=== PATIENT | male | born 1945 | race Caucasian/White ===

== ENCOUNTER 2016-12-02 20:06 | Inpatient (IN) | payer MEDICARE, MEDICAID ==
[~2016-12-02] VITALS: Ht 177.8 cm; Wt 70.6 kg
[~2016-12-02 20:06] MED LIST: ACET650S19 PO; ASCO500T2 PO; ASCO500T3 PO; ASPI-612 PO; ATOR20TA58 PO; BISA10SU2 RC; BISA5TAB4 PO; BUDE0.5A11 NEB; BUSP10TA PO; CARB200T4 PO; CHLO100T6 PO; CHOL10002 PO; CHOL10003 PO; CHOL200074 PO; DEXT1CAP PO; FLUT15.88 NS; FLUT16SP21 NS; HALO5TAB PO; IRON150C15 PO; LEVE500V7 IV; LEVO125T5 PO; LURA20TA PO; MAG355OR12 PO; MAGN2400 PO; METH29OI TP; MULT-557 PO; PANT40TA5 PO; POLY17PO5 PO; SENN-79 PO; SENN8.6T99 PO; SODI1TAB PO; TAMS0.4C2 PO; VALP250S PO; VALP250S18 PO; ZINC50TA33 PO; [UNRECOGNIZED DRUG - CODE] IV
[2016-12-02 21:17] LABS: BASO % 0 % (0-3); EOS # 0.2 x10^3/uL (0.0-0.7); EOS % 4 % (0-3); HEMATOCRIT 35.6 % (39.0-53.0); LYMPH # 0.9 x10^3/uL (1.0-4.8); LYMPH % 16 % (24-48); MEAN CORPUSCULAR HEMOGLOBIN 30 pg (25-35); MEAN CORPUSCULAR HGB CONC 34 g/dL (31-37); MEAN CORPUSCULAR VOLUME 89 fL (79-100); MONO # 0.9 x10^3/uL (0.0-1.1); MONO % 16 % (0-9); NEUT # 3.6 x10^3uL (1.8-7.7); NEUT % 63 % (31-73); PLATELET COUNT 265 x10^3/uL (140-400); RED BLOOD COUNT 4.02 x10^6/uL (4.30-5.70); WHITE BLOOD COUNT 5.7 x10^3/uL (4.0-11.0)
[2016-12-02 21:20] LABS: ALBUMIN/GLOBULIN RATIO 0.7 (1.0-1.7); CALCIUM 8.6 mg/dL (8.5-10.1); CREATININE 0.9 mg/dL (0.7-1.3); GFR 82.9; MAGNESIUM 1.8 mg/dL (1.8-2.4); POTASSIUM 3.3 mmol/L (3.5-5.1); TOTAL BILIRUBIN 0.1 mg/dL (0.2-1.0); TOTAL PROTEIN 7.2 g/dL (6.4-8.2)
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
[2016-12-02 22:35] LABS: BILIRUBIN,URINE NEG (NEG); CLARITY,URINE CLEAR; COLOR,URINE YELLOW; GLUCOSE,URINE NEG (NEG); NITRITE,URINE NEG (NEG); UROBILINOGEN,URINE 0.2 mg/dL (0.2 mg/dL)
[2016-12-02 22:36] LABS: BACTERIA,URINE 0 /HPF (0-FEW); SQUAMOUS EPITHELIAL CELL,UR FEW /LPF
--- NOTE | 2016-12-02 23:43 | EKG ---
[address] [address] Test Date: 2016-12-02 Test Time: 21:16:17 Pat Name: ORALIA JOVEL Department: Room: Gender: M [employer]: : 1945 Requested By: MAYITO GUZMAN Order Number: [id number] Reading MD: Measurements Intervals [place] Rate: 97 P: 53 IA: 154 QRS: 14 QRSD: 78 T: 32 QT: 358 QTc: 459 Interpretive Statements SINUS RHYTHM NO SPECIFIC ECG ABNORMALITIES RI6.01 No previous ECG available for comparison
[2016-12-03 00:44] VITALS: BP 120/76
[2016-12-03] MEDS ORDERED: MAGNESIUM HYDROXIDE 2,400 MG/30 ML ORAL.SUSP. PO PRN (00:45)
[2016-12-03] MEDS ORDERED: METHYL SALICYLATE/MENTHOL TOPICAL OINTMENT 29GM TUBE. TP PRN (00:45)
[2016-12-03] MEDS ORDERED: MAG HYDROX/AL HYDROX/SIMETH 30 ML ORAL.SUSP PO PRN (00:45)
[2016-12-03] MEDS ORDERED: ACETAMINOPHEN 325 MG TABLET PO PRN (00:45)
[2016-12-03] MEDS ORDERED: CHLO50TA6 PO (01:10)
[2016-12-03] MEDS ORDERED: OLAN10TA9 PO (01:10)
[2016-12-03] MEDS ORDERED: HALO2TAB PO ×2 (01:10)
[2016-12-03] MEDS ORDERED: CHLO100T6 PO (01:10)
[2016-12-03] MEDS ORDERED: HALOPERIDOL 2 MG TABLET PO PRN (01:15)
[2016-12-03 01:58] LABS: VAL ACID 59 mcg/mL (50-100)
[2016-12-03 06:27] VITALS: BP 112/72
[2016-12-03] MEDS ORDERED: ACETAMINOPHEN 650 MG/20.3 ML SOLUTION. PO PRN (07:00)
[2016-12-03] MEDS ORDERED: BISACODYL 10 MG SUPP.RECT RC PRN (07:00)
[2016-12-03] MEDS: LEVOTHYROXINE 125 MCG TABLET PO SCH (07:52)
[2016-12-03] MEDS: VALPROATE ACID 250 MG/5 ML ORAL SOLUTION PO SCH ×2 (08:40→19:45)
[2016-12-03] MEDS: busPIRone 10 MG TABLET. PO SCH ×2 (08:40→19:44)
[2016-12-03] MEDS: HALOPERIDOL 2 MG TABLET PO SCH ×3 (08:40→19:45)
[2016-12-03] MEDS: POLYETHYLENE GLYCOL 3350 17 GM PACKET. PO SCH (08:40)
[2016-12-03] MEDS: OLANZapine 10 MG TABLET PO SCH (08:40)
[2016-12-03] MEDS: FLUTICASONE 50MCG/NASAL SPRAY 16GM BOTTLE. NS SCH (08:59)
[2016-12-03] MEDS ORDERED: FLU VACC QS2017-18 (36MOS+)/PF 0.5 ML SYRINGE. VAX IM ONE (09:00)
[2016-12-03] MEDS ORDERED: CHLORPROMAZINE HCL 100 MG PO SCH (09:00)
[2016-12-03] MEDS: chlorproMAZINE HCL 25 MG TABLET PO SCH ×3 (09:07→19:45)
[2016-12-03 14:03] LABS: CARBAM 3.7 mcg/mL (4.0-12.0)
[2016-12-03 14:42] LABS: THYROID STIM HORMONE (TSH) 2.529 uIU/mL (0.358-3.740)
[2016-12-03 17:05] VITALS: BP 124/75
[2016-12-03 19:11] LABS: T3 TOTAL 77 ng/dL (71-180)
[2016-12-03] MEDS: MIRTAZAPINE 7.5 MG TABLET. PO SCH (19:45)
[2016-12-03] MEDS: TAMSULOSIN 0.4 MG CAP.ER.24H. PO SCH (19:45)
[2016-12-03] MEDS ORDERED: traZODone 50 MG TABLET. PO PRN (21:00)
[2016-12-03] MEDS ORDERED: carBAMazepine 200 MG TABLET PO SCH (21:00)
--- NOTE | 2016-12-03 21:01 | PDOC ---
Exam Raghav Demential Exam: Raghav Note: Please also refer to the separate dictated note~for this date of service dictated separately.~Patient seen individually. Discussed the patient with Nursing staff reviewed the chart.~Reviewed interim history and current functioning. Reviewed vital signs,~Labs/ Radiology~and current medications noted below. Continue current treatment with the changes noted in the dictated addendum note Assessment: Vital Signs: Vital Signs Date Time Temp Pulse Resp B/P (MAP) Pulse Ox O2 Delivery O2 Flow Rate FiO2 12/03/16 17:05 97.5 80 18 124/75 (91) 98 12/03/16 00:04 Room Air I&O Intake and Output 12/04/16 07:00 Intake Total 0 ml Balance 0 ml Intake Oral 0 ml Labs: Laboratory Tests Test 12/02/16 21:47 Urine Collection Type U cath Urine Color Yellow Urine Clarity Clear Urine pH 5.5 Urine Specific [place] >=1.030 Urine Protein 30 mg/dl (NEG-TRACE) Urine Glucose (UA) Neg mg/dL (NEG) Urine Ketones (Stick) Trace mg/dL (NEG) Urine Blood Neg (NEG) Urine Nitrite Neg (NEG) Urine Bilirubin Neg (NEG) Urine Urobilinogen Dipstick 0.2 mg/dL (0.2 mg/dL) Urine Leukocyte Esterase Neg (NEG) Urine RBC 1-2 /HPF (0-2) Urine WBC 1-4 /HPF (0-4) Urine Squamous Epithelial Cells Few /LPF Urine Bacteria 0 /HPF (0-FEW) Urine Mucus Mod /LPF Current Medications: Meds: Current Medications Acetaminophen (Tylenol) 650 mg PRN Q6HRS PRN PO PAIN / TEMP; Start 12/03/16 at 00:45 Multi-Ingredient Ointment (Analgesic [place]) 1 ailyn PRN QID PRN TP MUSCLE PAIN; Start 12/03/16 at 00:45 Al Hydroxide/Mg Hydroxide (Mylanta Plus Xs) 15 ml PRN AFTMEALHC PRN PO DYSPEPSIA; Start 12/03/16 at 00:45 Magnesium Hydroxide (Milk Of Magnesia) 2,400 mg PRN QHS PRN PO CONSTIPATION; Start 12/03/16 at 00:45 Buspirone HCl (Buspar) 10 mg BID PO Last administered on 12/03/16t 19:44; Start 12/03/16 at 09:00 Carbamazepine (TEGretol) 200 mg HS PO Last administered on 12/03/16 19:45; Start 12/03/16 at 21:00 Haloperidol (Haldol) 2 mg PRN Q4HRS PRN PO AGITATION; Start 12/03/16 at 01:15 Haloperidol (Haldol) 2 mg TID PO Last administered on 12/03/16 19:45; Start 12/03/16 at 09:00 Olanzapine (ZyPREXA) 10 mg DAILY PO Last administered on 12/03/16 08:40; Start 12/03/16 at 09:00 Chlorpromazine HCl (Thorazine) 150 mg TID PO Last administered on 12/03/16 19: 45; Start 12/03/16 at 09:00 Non-Formulary Medication 100 mg TID PO ; Start 12/03/16 at 09:00; Status UNV Valproic Acid (Depakene) 250 mg BID PO Last administered on 12/03/16 19:45; Start 12/03/16 at 09:00 Influenza Virus Vaccine Quadrival (Fluarix Quad [id number] Syringe) 0.5 ml ONCE ONCE VAX IM Last administered on 12/03/16 09:06; Start 12/03/16 at 09:00; Stop 12/03/16 at 09:02; Status DC Acetaminophen (Tylenol) 650 mg PRN Q6HRS PRN PO PAIN / TEMP; Start 12/03/16 at 07:00 Bisacodyl (Dulcolax Supp) 10 mg PRN DAILY PRN RC CONSTIPATION; Start 12/03/16 at 07:00 Fluticasone Propionate (Flonase) 1 spray DAILY NS Last administered on 08:59; Start 12/03/16 at 09:00 Levothyroxine Sodium (Synthroid) 125 mcg DAILY06 PO Last administered on 07:52; Start 12/03/16 at 07:30 Polyethylene Glycol (miraLAX) 17 gm DAILY PO Last administered on 12/03/16 08: 40; Start 12/03/16 at 09:00 Tamsulosin HCl (Flomax) 0.4 mg HS PO Last administered on 12/03/16 19:45; Start 12/03/16 at 21:00 Trazodone HCl (Desyrel) 50 mg PRN QHS PRN PO INSOMNIA; Start 12/03/16 at 21:00 Mirtazapine (Remeron) 7.5 mg QHS PO Last administered on 12/03/16t 19:45; Start 12/03/16 at 21:00 Active Scripts Active Reported Olanzapine 10 Mg Tablet 10 Mg PO DAILY Haloperidol 2 Mg Tablet 2 Mg PO PRN Q4HRS PRN Haloperidol 2 Mg Tablet 2 Mg PO TID Chlorpromazine Hcl 100 Mg Tablet 100 Mg PO TID Chlorpromazine Hcl 50 Mg Tablet 50 Mg PO TID Acetaminophen 650 Mg/20.3 Ml Solution 650 Mg PO Q6HRS PRN LAST DOSE GIVEN: DATE: TIME: NEXT DOSE DUE: DATE: TIME: Buspirone Hcl 10 Mg Tablet 10 Mg PO BID LAST DOSE GIVEN: DATE: TIME: NEXT DOSE DUE: DATE: TIME: Depakene (Valproate Sodium) 250 Mg/5 Ml Solution 2,500 Mg PO BID LAST DOSE GIVEN: DATE: TIME: NEXT DOSE DUE: DATE: TIME: Tamsulosin Hcl 0.4 Mg Cap.er.24h 0.4 Mg PO HS LAST DOSE GIVEN: DATE: TIME: NEXT DOSE DUE: DATE: TIME: Miralax (Polyethylene Glycol 3350) 17 Gm Powd.pack 17 Gm PO DAILY LAST DOSE GIVEN: DATE: TIME: NEXT DOSE DUE: DATE: TIME: Levothyroxine Sodium 125 Mcg Tablet 125 Mcg PO DAILYAC LAST DOSE GIVEN: DATE: TIME: NEXT DOSE DUE: DATE: TIME: Carbamazepine 200 Mg Tablet 200 Mg PO HS Bisacodyl 10 Mg Supp.rect 10 Mg RC PRN DAILY PRN Fluticasone Propionate Nasal [place] (Fluticasone Propionate) 16 Gm [place].susp 1 Spr NS DAILY Diagnosis: Problems: (1) Dementia with behavioral disturbance (2) Intellectual delay (3) Altered mental state (4) Anxiety disorder (5) Impulse control disorder (6) Dementia in Alzheimer's disease with delusions (7) Dementia in Alzheimer's disease with depression (8) Bipolar affective, mixed RAVINDRA CHANG MD Dec 03, 2016 21:01
[2016-12-04] MEDS ORDERED: ARIP5TAB13 PO (03:02)
[2016-12-04] MEDS ORDERED: ASPI-630 PO (03:03)
[2016-12-04] MEDS: LEVOTHYROXINE 125 MCG TABLET PO SCH (05:30)
[2016-12-04 06:35] VITALS: BP 116/78
[2016-12-04] MEDS: carBAMazepine 200 MG TABLET PO SCH ×2 (07:36→18:00)
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
[2016-12-04] MEDS: FLUTICASONE 50MCG/NASAL SPRAY 16GM BOTTLE. NS SCH (09:00)
[2016-12-04] MEDS: POLYETHYLENE GLYCOL 3350 17 GM PACKET. PO SCH (09:22)
[2016-12-04] MEDS: chlorproMAZINE HCL 25 MG TABLET PO SCH ×3 (09:22→19:50)
[2016-12-04] MEDS: HALOPERIDOL 2 MG TABLET PO SCH ×3 (09:22→19:45)
[2016-12-04] MEDS: busPIRone 10 MG TABLET. PO SCH ×2 (09:22→19:50)
[2016-12-04] MEDS: OLANZapine 10 MG TABLET PO SCH (09:22)
[2016-12-04] MEDS: VALPROATE ACID 250 MG/5 ML ORAL SOLUTION PO SCH ×2 (09:22→21:04)
[2016-12-04] MEDS: CHOLECALCIFEROL (VITAMIN D3) 50,000 UNIT CAPSULE PO SCH (09:23)
--- NOTE | 2016-12-04 09:44 | HP ---
ADMIT DATE: 12/03/2016 PSYCHIATRIC ADMISSION HISTORY AND EVALUATION This late entry 12/03 covers elements not covered in my initial note of 12/03. I met with the patient individually evening of 12/03 for this evaluation, discussed with nursing staff 2 or 3 times prior to this evaluation to gather background historical information and symptoms prompting admission controlled with residential staff. IDENTIFYING DATA: The patient is a 71-year-old male referred to us from [facility] in [place], [place] by Dr. Dylan Villegas, his primary care physician on account of worsening mood swings, yelling out, tripping people off, grabbing people, threw a pop bottle, increased anxiety. Behaviors deemed dangerous to himself and other residents at facility. He had failed outpatient psychiatric interventions, referred for inpatient psychiatric stabilization with a prior diagnosis of dementia with behavioral disturbance, mental retardation, and bipolar disorder. CHIEF COMPLAINT: "No." The patient is not very verbal, yells out at times, oriented to himself only. HISTORY OF PRESENT ILLNESS: The patient has a history of mental retardation in association with a later onset of dementia, Alzheimer's type with the delusion, depression, behavioral disturbance. He has had increasing mood swings, yelling out, agitation, appeared paranoid, psychotic. He has had significant insomnia, some appetite changes. No active suicidal or homicidal ideation, but behaviors have been dangerous, unmanageable at the facility resulting in this referral. PAST PSYCHIATRIC HISTORY: As above. MEDICAL HISTORY: Positive for mental retardation, hypothyroidism, hyperlipidemia, BPH, GERD, COPD. CODE STATUS: DNR. ALLERGIES: None. He ambulates in wheelchair. The patient transfers himself to bed; however, he does not lock his wheelchair, must have chair alarm. CURRENT PSYCHOTROPICS: Haldol 2 mg 3 times a day and 2 mg q. 4 hours p.r.n., BuSpar 10 mg b.i.d., Zyprexa 10 mg daily, Latuda 20 mg daily, valproic acid 250 mg b.i.d., Tegretol 200 mg at bedtime, chlorpromazine 150 mg 3 times a day. FAMILY HISTORY: Noncontributory. SOCIAL HISTORY: No alcohol, drug abuse, physical, sexual or elder abuse. He is not known to be a perpetrator. MENTAL STATUS EXAMINATION: The patient was seen individually in his room the evening of 12/03. He is oriented to himself, irritable, quite labile. Insight, judgment, recent and remote memory, attention, concentration, fund of knowledge poor, consistent with his diagnosis. Attention span short. Language function intact. Mood and affect quite labile. Intellectual function consistent with his intellectual disability. REVIEW OF SYSTEMS: Ambulation impaired. No CV, , pulmonary, eye, ENT system symptoms on review. Reliability poor. IMPRESSION: Bipolar 1 disorder, mixed with psychotic features, intellectual disability moderate, major neurocognitive disorder, Alzheimer with delusion, depression, behavioral disturbance; anxiety disorder unspecified; impulse control disorder unspecified. Rest as above. PLAN: Admit to the Geropsychiatry Unit at [facility]. I will see the patient daily individually. Request medical followup with Dr. Pacheco/Dr. Velazquez. Start trazodone 50 mg at bedtime p.r.n., june repeat x 1 for insomnia, Remeron 7.5 mg p.o. at bedtime. Valproic acid level is 59, therapeutic. Continue the Depakote liquid 250 mg b.i.d., Tegretol level is 3.7, on Tegretol 200 mg at bedtime, we will increase it to 200 mg b.i.d. Check CBC, CMP and Tegretol level in 3 days. We will make further adjustments in psychotropics as clinically indicated. MAN Dominique CHANG MD DR: EDUARDA/camelia JOB#: [id number] / [id number]
[2016-12-04 16:22] VITALS: BP 125/80
[2016-12-04] MEDS: MIRTAZAPINE 7.5 MG TABLET. PO SCH (19:45)
[2016-12-04] MEDS: TAMSULOSIN 0.4 MG CAP.ER.24H. PO SCH (19:45)
[2016-12-04] MEDS: ATORVASTATIN CALCIUM 20 MG TABLET PO SCH (19:50)
[2016-12-04] MEDS ORDERED: VALPROIC ACID 250 MG CAPSULE. PO SCH (21:00)
--- NOTE | 2016-12-04 21:04 | PDOC ---
Exam Raghav Demential Exam: Raghav Note: Please also refer to the separate dictated note~for this date of service dictated separately.~Patient seen individually. Discussed the patient with Nursing staff reviewed the chart.~Reviewed interim history and current functioning. Reviewed vital signs,~Labs/ Radiology~and current medications noted below. Continue current treatment with the changes noted in the dictated addendum note Assessment: Vital Signs: Vital Signs Date Time Temp Pulse Resp B/P (MAP) Pulse Ox O2 Delivery O2 Flow Rate FiO2 12/04/16 16:22 97.7 97 18 125/80 (95) 93 12/04/16 06:35 Room Air I&O Intake and Output 12/05/16 07:00 Intake Total 0 ml Balance 0 ml Intake Oral 0 ml Current Medications: Meds: Current Medications Acetaminophen (Tylenol) 650 mg PRN Q6HRS PRN PO PAIN / TEMP; Start 12/03/16 at 00:45 Multi-Ingredient Ointment (Analgesic [place]) 1 ailyn PRN QID PRN TP MUSCLE PAIN; Start 12/03/16 at 00:45 Al Hydroxide/Mg Hydroxide (Mylanta Plus Xs) 15 ml PRN AFTMEALHC PRN PO DYSPEPSIA; Start 12/03/16 at 00:45 Magnesium Hydroxide (Milk Of Magnesia) 2,400 mg PRN QHS PRN PO CONSTIPATION; Start 12/03/16 at 00:45 Buspirone HCl (Buspar) 10 mg BID PO Last administered on 12/04/16 19:50; Start 12/03/16 at 09:00 Carbamazepine (TEGretol) 200 mg HS PO Last administered on 12/03/16 19:45; Start 12/03/16 at 21:00; Stop 12/04/16 at 06:05; Status DC Haloperidol (Haldol) 2 mg PRN Q4HRS PRN PO AGITATION; Start 12/03/16 at 01:15 Haloperidol (Haldol) 2 mg TID PO Last administered on 12/04/16 19:45; Start 12/03/16 at 09:00 Olanzapine (ZyPREXA) 10 mg DAILY PO Last administered on 12/04/16 09:22; Start 12/03/16 at 09:00 Chlorpromazine HCl (Thorazine) 150 mg TID PO Last administered on 12/04/16 19: 50; Start 12/03/16 at 09:00 Non-Formulary Medication 100 mg TID PO ; Start 12/03/16 at 09:00; Status UNV Valproic Acid (Depakene) 250 mg BID PO Last administered on 12/04/16 09:22; Start 12/03/16 at 09:00; Stop 12/04/16 at 11:16; Status DC Influenza Virus Vaccine Quadrival (Fluarix Quad [id number] Syringe) 0.5 ml ONCE ONCE VAX IM Last administered on 12/03/16 09:06; Start 12/03/16 at 09:00; Stop 12/03/16 at 09:02; Status DC Acetaminophen (Tylenol) 650 mg PRN Q6HRS PRN PO PAIN / TEMP; Start 12/03/16 at 07:00 Bisacodyl (Dulcolax Supp) 10 mg PRN DAILY PRN RC CONSTIPATION; Start 12/03/16 at 07:00 Fluticasone Propionate (Flonase) 1 spray DAILY NS Last administered on 08:59; Start 12/03/16 at 09:00 Levothyroxine Sodium (Synthroid) 125 mcg DAILY06 PO Last administered on 05:30; Start 12/03/16 at 07:30 Polyethylene Glycol (miraLAX) 17 gm DAILY PO Last administered on 12/04/16 09: 22; Start 12/03/16 at 09:00 Tamsulosin HCl (Flomax) 0.4 mg HS PO Last administered on 12/04/16 19:45; Start 12/03/16 at 21:00 Trazodone HCl (Desyrel) 50 mg PRN QHS PRN PO INSOMNIA; Start 12/03/16 at 21:00 Mirtazapine (Remeron) 7.5 mg QHS PO Last administered on 12/04/16 19:45; Start 12/03/16 at 21:00 Carbamazepine (TEGretol) 200 mg BID76 PO Last administered on 12/04/16 07:36; Start 12/04/16 at 07:00 Vitamin D (Vitamin D3) 50,000 unit WEEKLY PO Last administered on 12/04/16 09: 23; Start 12/04/16 at 09:00 Atorvastatin Calcium (Lipitor) 20 mg QHS PO Last administered on 12/04/16t 19: 50; Start 12/04/16 at 21:00 Valproic Acid (Depakene) 2,500 mg BID PO ; Start 12/04/16 at 21:00; Stop at 21:00; Status DC Valproic Acid (Depakene) 2,500 mg BID PO ; Start 12/04/16 at 21:00 Active Scripts Active Reported Aspirin 81 Mg Tab.chew 81 Mg PO DAILY Abilify (Aripiprazole) 5 Mg Tablet 5 Mg PO DAILY Olanzapine 10 Mg Tablet 10 Mg PO DAILY Haloperidol 2 Mg Tablet 2 Mg PO PRN Q4HRS PRN Haloperidol 2 Mg Tablet 2 Mg PO TID Chlorpromazine Hcl 100 Mg Tablet 100 Mg PO TID Chlorpromazine Hcl 50 Mg Tablet 50 Mg PO TID Acetaminophen 650 Mg/20.3 Ml Solution 650 Mg PO Q6HRS PRN LAST DOSE GIVEN: DATE: TIME: NEXT DOSE DUE: DATE: TIME: Buspirone Hcl 10 Mg Tablet 10 Mg PO BID LAST DOSE GIVEN: DATE: TIME: NEXT DOSE DUE: DATE: TIME: Depakene (Valproate Sodium) 250 Mg/5 Ml Solution 2,500 Mg PO BID LAST DOSE GIVEN: DATE: TIME: NEXT DOSE DUE: DATE: TIME: Tamsulosin Hcl 0.4 Mg Cap.er.24h 0.4 Mg PO HS LAST DOSE GIVEN: DATE: TIME: NEXT DOSE DUE: DATE: TIME: Miralax (Polyethylene Glycol 3350) 17 Gm Powd.pack 17 Gm PO DAILY LAST DOSE GIVEN: DATE: TIME: NEXT DOSE DUE: DATE: TIME: Levothyroxine Sodium 125 Mcg Tablet 125 Mcg PO DAILYAC LAST DOSE GIVEN: DATE: TIME: NEXT DOSE DUE: DATE: TIME: Carbamazepine 200 Mg Tablet 200 Mg PO HS Bisacodyl 10 Mg Supp.rect 10 Mg RC PRN DAILY PRN Fluticasone Propionate Nasal [place] (Fluticasone Propionate) 16 Gm [place].susp 1 Spr NS DAILY Diagnosis: Problems: (1) Altered mental state (2) Intellectual delay (3) Dementia with behavioral disturbance (4) Anxiety disorder (5) Impulse control disorder (6) Dementia in Alzheimer's disease with delusions (7) Dementia in Alzheimer's disease with depression (8) Bipolar affective, mixed RAVINDRA CHANG MD Dec 04, 2016 21:04
[2016-12-05] MEDS: LEVOTHYROXINE 125 MCG TABLET PO SCH (05:44)
[2016-12-05] MEDS: carBAMazepine 200 MG TABLET PO SCH ×2 (05:45→17:21)
[2016-12-05 06:08] VITALS: BP 119/74
[2016-12-05] MEDS: FLUTICASONE 50MCG/NASAL SPRAY 16GM BOTTLE. NS SCH (08:22)
[2016-12-05] MEDS: chlorproMAZINE HCL 25 MG TABLET PO SCH ×3 (08:23→19:21)
[2016-12-05] MEDS: busPIRone 10 MG TABLET. PO SCH (08:23)
[2016-12-05] MEDS: HALOPERIDOL 2 MG TABLET PO SCH ×3 (08:24→19:20)
[2016-12-05] MEDS: OLANZapine 10 MG TABLET PO SCH (08:24)
[2016-12-05] MEDS: POLYETHYLENE GLYCOL 3350 17 GM PACKET. PO SCH (08:25)
[2016-12-05] MEDS: VALPROATE ACID 250 MG/5 ML ORAL SOLUTION PO SCH ×2 (08:25→19:21)
[2016-12-05 15:51] VITALS: BP 114/74
[2016-12-05] MEDS: TAMSULOSIN 0.4 MG CAP.ER.24H. PO SCH (19:20)
[2016-12-05] MEDS: MIRTAZAPINE 7.5 MG TABLET. PO SCH (19:20)
[2016-12-05] MEDS: ATORVASTATIN CALCIUM 20 MG TABLET PO SCH (19:20)
[2016-12-05] MEDS: busPIRone 15 MG TABLET. PO SCH (19:30)
--- NOTE | 2016-12-05 21:13 | PDOC ---
Exam Raghav Demential Exam: Raghav Note: Please also refer to the separate dictated note~for this date of service dictated separately.~Patient seen individually. Discussed the patient with Nursing staff reviewed the chart.~Reviewed interim history and current functioning. Reviewed vital signs,~Labs/ Radiology~and current medications noted below. Continue current treatment with the changes noted in the dictated addendum note Assessment: Vital Signs: Vital Signs Date Time Temp Pulse Resp B/P (MAP) Pulse Ox O2 Delivery O2 Flow Rate FiO2 12/05/16 15:51 97.3 93 19 114/74 (87) 95 12/04/16 06:35 Room Air I&O Intake and Output 12/06/16 07:00 Intake Total 0 ml Balance 0 ml Intake Oral 0 ml Current Medications: Meds: Current Medications Acetaminophen (Tylenol) 650 mg PRN Q6HRS PRN PO PAIN / TEMP; Start 12/03/16 at 00:45 Multi-Ingredient Ointment (Analgesic [place]) 1 ailyn PRN QID PRN TP MUSCLE PAIN; Start 12/03/16 at 00:45 Al Hydroxide/Mg Hydroxide (Mylanta Plus Xs) 15 ml PRN AFTMEALHC PRN PO DYSPEPSIA; Start 12/03/16 at 00:45 Magnesium Hydroxide (Milk Of Magnesia) 2,400 mg PRN QHS PRN PO CONSTIPATION; Start 12/03/16 at 00:45 Buspirone HCl (Buspar) 10 mg BID PO Last administered on 12/05/16 08:23; Start 12/03/16 at 09:00; Stop 12/05/16 at 18:53; Status DC Carbamazepine (TEGretol) 200 mg HS PO Last administered on 12/03/16 19:45; Start 12/03/16 at 21:00; Stop 12/04/16 at 06:05; Status DC Haloperidol (Haldol) 2 mg PRN Q4HRS PRN PO AGITATION; Start 12/03/16 at 01:15 Haloperidol (Haldol) 2 mg TID PO Last administered on 12/05/16 19:20; Start 12/03/16 at 09:00 Olanzapine (ZyPREXA) 10 mg DAILY PO Last administered on 12/05/16 08:24; Start 12/03/16 at 09:00 Chlorpromazine HCl (Thorazine) 150 mg TID PO Last administered on 12/05/16 19: 21; Start 12/03/16 at 09:00 Non-Formulary Medication 100 mg TID PO ; Start 12/03/16 at 09:00; Status UNV Valproic Acid (Depakene) 250 mg BID PO Last administered on 12/04/16 09:22; Start 12/03/16 at 09:00; Stop 12/04/16 at 11:16; Status DC Influenza Virus Vaccine Quadrival (Fluarix Quad 7061-5281 Syringe) 0.5 ml ONCE ONCE VAX IM Last administered on 12/03/16 09:06; Start 12/03/16 at 09:00; Stop 12/03/16 at 09:02; Status DC Acetaminophen (Tylenol) 650 mg PRN Q6HRS PRN PO PAIN / TEMP; Start 12/03/16 at 07:00 Bisacodyl (Dulcolax Supp) 10 mg PRN DAILY PRN RC CONSTIPATION; Start 12/03/16 at 07:00 Fluticasone Propionate (Flonase) 1 spray DAILY NS Last administered on 08:59; Start 12/03/16 at 09:00 Levothyroxine Sodium (Synthroid) 125 mcg DAILY06 PO Last administered on 05:44; Start 12/03/16 at 07:30 Polyethylene Glycol (miraLAX) 17 gm DAILY PO Last administered on 12/04/16 09: 22; Start 12/03/16 at 09:00 Tamsulosin HCl (Flomax) 0.4 mg HS PO Last administered on 12/05/16 19:20; Start 12/03/16 at 21:00 Trazodone HCl (Desyrel) 50 mg PRN QHS PRN PO INSOMNIA; Start 12/03/16 at 21:00 Mirtazapine (Remeron) 7.5 mg QHS PO Last administered on 12/05/16 19:20; Start 12/03/16 at 21:00 Carbamazepine (TEGretol) 200 mg BID76 PO Last administered on 12/05/16 17:21; Start 12/04/16 at 07:00 Vitamin D (Vitamin D3) 50,000 unit WEEKLY PO Last administered on 10/5/17at 09: 23; Start 12/04/16 at 09:00 Atorvastatin Calcium (Lipitor) 20 mg QHS PO Last administered on 12/05/16 19: 20; Start 12/04/16 at 21:00 Valproic Acid (Depakene) 2,500 mg BID PO ; Start 12/04/16 at 21:00; Stop at 21:00; Status DC Valproic Acid (Depakene) 2,500 mg BID PO Last administered on 12/05/16 19:21; Start 12/04/16 at 21:00 Buspirone HCl (Buspar) 15 mg BID PO Last administered on 12/05/16 19:30; Start 12/05/16 at 21:00 Active Scripts Active Reported Aspirin 81 Mg Tab.chew 81 Mg PO DAILY Abilify (Aripiprazole) 5 Mg Tablet 5 Mg PO DAILY Olanzapine 10 Mg Tablet 10 Mg PO DAILY Haloperidol 2 Mg Tablet 2 Mg PO PRN Q4HRS PRN Haloperidol 2 Mg Tablet 2 Mg PO TID Chlorpromazine Hcl 100 Mg Tablet 100 Mg PO TID Chlorpromazine Hcl 50 Mg Tablet 50 Mg PO TID Acetaminophen 650 Mg/20.3 Ml Solution 650 Mg PO Q6HRS PRN LAST DOSE GIVEN: DATE: TIME: NEXT DOSE DUE: DATE: TIME: Buspirone Hcl 10 Mg Tablet 10 Mg PO BID LAST DOSE GIVEN: DATE: TIME: NEXT DOSE DUE: DATE: TIME: Depakene (Valproate Sodium) 250 Mg/5 Ml Solution 2,500 Mg PO BID LAST DOSE GIVEN: DATE: TIME: NEXT DOSE DUE: DATE: TIME: Tamsulosin Hcl 0.4 Mg Cap.er.24h 0.4 Mg PO HS LAST DOSE GIVEN: DATE: TIME: NEXT DOSE DUE: DATE: TIME: Miralax (Polyethylene Glycol 3350) 17 Gm Powd.pack 17 Gm PO DAILY LAST DOSE GIVEN: DATE: TIME: NEXT DOSE DUE: DATE: TIME: Levothyroxine Sodium 125 Mcg Tablet 125 Mcg PO DAILYAC LAST DOSE GIVEN: DATE: TIME: NEXT DOSE DUE: DATE: TIME: Carbamazepine 200 Mg Tablet 200 Mg PO HS Bisacodyl 10 Mg Supp.rect 10 Mg RC PRN DAILY PRN Fluticasone Propionate Nasal [place] (Fluticasone Propionate) 16 Gm [place].susp 1 Spr NS DAILY Diagnosis: Problems: (1) Altered mental state (2) Intellectual delay (3) Dementia with behavioral disturbance (4) Anxiety disorder (5) Impulse control disorder (6) Dementia in Alzheimer's disease with delusions (7) Dementia in Alzheimer's disease with depression (8) Bipolar affective, mixed RAVINDRA CHANG MD Dec 05, 2016 21:13
--- NOTE | 2016-12-05 23:49 | PN ---
DATE: 12/04/2016 This late entry 12/04/2016 covers elements not covered in my initial note of 12/04/2016. I met with the patient individually evening of 12/04/2016 at the treatment team meeting morning of 12/04/2016. Discussed the patient's history, progress, diagnoses, discharge, aftercare plans. He was quite agitated previous day, had swiped his plate off the table insistent on wanting Mountain Dew and candy bars. I had 2 or 3 telephone calls from nursing staff to clarify his admission dosage of Depakote, which in fact is 2500 mg twice a day in a liquid and that is the dosage he was discharged on the last time he was with us. REVIEW OF SYSTEMS: Ambulation impaired, in a wheelchair, transfers himself to bed, does not lock the wheelchair, must have chair alarm. No CV, , pulmonary, eye, ENT system symptoms on review. Diet is pureed. MENTAL STATUS EXAM: Oriented to himself. Insight, judgment, recent and remote memory, attention, concentration, fund of knowledge poor consistent with his diagnosis mentioned in my initial note. PLAN: Continue current psychotropics. Valproic acid is 2500 mg b.i.d. Maintain the rest of psychotropics unchanged. Follow labs level. Tegretol level is 3.7. Reviewed drug interactions, risk/benefit ratio favors no further change. MAN Dominique CHANG MD DR: EDUARDA/camelia JOB#: [id number] / [id number]
[2016-12-06] MEDS: carBAMazepine 200 MG TABLET PO SCH ×2 (05:18→18:00)
[2016-12-06] MEDS: LEVOTHYROXINE 125 MCG TABLET PO SCH (05:18)
[2016-12-06 06:07] VITALS: BP 115/71
[2016-12-06] MEDS: VALPROATE ACID 250 MG/5 ML ORAL SOLUTION PO SCH ×4 (08:03→22:24)
[2016-12-06] MEDS: OLANZapine 10 MG TABLET PO SCH ×2 (08:03→09:00)
[2016-12-06] MEDS: busPIRone 15 MG TABLET. PO SCH ×4 (08:04→22:24)
[2016-12-06] MEDS: HALOPERIDOL 2 MG TABLET PO SCH ×2 (08:04→09:00)
[2016-12-06] MEDS: chlorproMAZINE HCL 25 MG TABLET PO SCH ×5 (08:05→22:27)
[2016-12-06] MEDS: POLYETHYLENE GLYCOL 3350 17 GM PACKET. PO SCH ×2 (08:05→09:00)
[2016-12-06] MEDS: FLUTICASONE 50MCG/NASAL SPRAY 16GM BOTTLE. NS SCH (09:00)
[2016-12-06 09:39] LABS: BASO % 1 % (0-3); EOS # 0.1 x10^3/uL (0.0-0.7); EOS % 4 % (0-3); HEMATOCRIT 35.6 % (39.0-53.0); HEMOGLOBIN 11.7 g/dL (13.0-17.5); LYMPH # 0.8 x10^3/uL (1.0-4.8); LYMPH % 24 % (24-48); MEAN CORPUSCULAR HEMOGLOBIN 30 pg (25-35); MEAN CORPUSCULAR HGB CONC 33 g/dL (31-37); MEAN CORPUSCULAR VOLUME 90 fL (79-100); MONO # 0.5 x10^3/uL (0.0-1.1); MONO % 14 % (0-9); NEUT # 1.9 x10^3uL (1.8-7.7); NEUT % 57 % (31-73); PLATELET COUNT 254 x10^3/uL (140-400); RED BLOOD COUNT 3.96 x10^6/uL (4.30-5.70); RED CELL DISTRIBUTION WIDTH 18.2 % (11.5-14.5); WHITE BLOOD COUNT 3.3 x10^3/uL (4.0-11.0)
[2016-12-06 09:48] LABS: ALBUMIN 3.1 g/dL (3.4-5.0); ALBUMIN/GLOBULIN RATIO 0.7 (1.0-1.7); ALK PHOS 51 U/L (46-116); ALT (SGPT) 12 U/L (16-63); ANION GAP 6 (6-14); AST (SGOT) 12 U/L (15-37); BLOOD UREA NITROGEN 7 mg/dL (8-26); BUN/CREATININE RATIO 8 (6-20); CALCIUM 8.8 mg/dL (8.5-10.1); CARBON DIOXIDE 34 mmol/L (21-32); CHLORIDE 108 mmol/L (98-107); CREATININE 0.9 mg/dL (0.7-1.3); GFR 82.9; GLUCOSE 113 mg/dL (70-99); POTASSIUM 3.6 mmol/L (3.5-5.1); SODIUM 148 mmol/L (136-145); TOTAL BILIRUBIN 0.2 mg/dL (0.2-1.0); TOTAL PROTEIN 7.5 g/dL (6.4-8.2)
[2016-12-06] MEDS ORDERED: DIVALPROEX 125 MG CAP.SPRINK PO ONE (10:00)
[2016-12-06 10:23] LABS: VAL ACID 125 mcg/mL (50-100)
[2016-12-06] MEDS: HALOPERIDOL LACT 5 MG/ML VIAL. IM SCH (12:37)
[2016-12-06] MEDS: LORazepam 2 MG/ML VIAL IM SCH (12:38)
--- NOTE | 2016-12-06 14:41 | PN ---
DATE: 12/05/2016 PSYCHIATRIC PROGRESS NOTE This late entry 12/05/2016 covers elements, not covered in my initial note of 12/05/2016. SUBJECTIVE: I met with the patient evening of 12/05/2016. The patient has had a very difficult day. He has been yelling, cursing, agitated, throwing things, aggressive, refusing his medications, swipes his meal trays off the table, acting like a kid according to nursing staff. Does not appear clearly psychotic, but very immature. REVIEW OF SYSTEMS: Ambulation impaired. No CV, , pulmonary, eye, ENT system symptoms on review. Reliability poor. MENTAL STATUS EXAM: Oriented to himself. Insight, judgment, recent and remote memory, attention, concentration, fund of knowledge poor, consistent with his diagnosis mentioned in my initial note. PLAN: Increase BuSpar from 10 mg twice a day to 15 mg twice a day. Check labs level on the Tegretol, 12/07/2016. Continue Depakote liquid ____ mg b.i.d. Reviewed drug interactions. Risk/benefit ratio favors no further change. Continue chlorpromazine, Remeron, Haldol 2 mg t.i.d., Zyprexa 10 mg daily. MAN Dominique CHANG MD DR: EDUARDA/camelia JOB#: [id number] / [id number]
[2016-12-06 15:37] LABS: CARBAM 6.7 mcg/mL (4.0-12.0)
[2016-12-06 16:14] VITALS: BP 115/79
[2016-12-06] MEDS: ATORVASTATIN CALCIUM 20 MG TABLET PO SCH ×2 (21:00→22:25)
[2016-12-06] MEDS: MIRTAZAPINE 7.5 MG TABLET. PO SCH ×2 (21:00→22:24)
[2016-12-06] MEDS: TAMSULOSIN 0.4 MG CAP.ER.24H. PO SCH ×2 (21:00→22:25)
--- NOTE | 2016-12-06 22:57 | PDOC ---
Exam Raghav Demential Exam: Raghav Note: Please also refer to the separate dictated note~for this date of service dictated separately.~Patient seen individually. Discussed the patient with Nursing staff reviewed the chart.~Reviewed interim history and current functioning. Reviewed vital signs,~Labs/ Radiology~and current medications noted below. Continue current treatment with the changes noted in the dictated addendum note Assessment: Vital Signs: Vital Signs Date Time Temp Pulse Resp B/P (MAP) Pulse Ox O2 Delivery O2 Flow Rate FiO2 12/06/16 16:14 97.7 96 18 115/79 (91) 94 12/06/16 06:07 Room Air I&O Intake and Output 12/07/16 07:00 Intake Total 240 ml Balance 240 ml Intake Oral 240 ml Labs: Laboratory Tests Test 12/06/16 09:22 White Blood Count 3.3 x10^3/uL (4.0-11.0) L Red Blood Count 3.96 x10^6/uL (4.30-5.70) L Hemoglobin 11.7 g/dL (13.0-17.5) L Hematocrit 35.6 % (39.0-53.0) L Mean Corpuscular Volume 90 fL (79-100) Mean Corpuscular Hemoglobin 30 pg (25-35) Mean Corpuscular Hemoglobin Concent 33 g/dL (31-37) Red Cell Distribution Width 18.2 % (11.5-14.5) H Platelet Count 254 x10^3/uL (140-400) Neutrophils (%) (Auto) 57 % (31-73) Lymphocytes (%) (Auto) 24 % (24-48) Monocytes (%) (Auto) 14 % (0-9) H Eosinophils (%) (Auto) 4 % (0-3) H Basophils (%) (Auto) 1 % (0-3) Neutrophils # (Auto) 1.9 x10^3uL (1.8-7.7) Lymphocytes # (Auto) 0.8 x10^3/uL (1.0-4.8) L Monocytes # (Auto) 0.5 x10^3/uL (0.0-1.1) Eosinophils # (Auto) 0.1 x10^3/uL (0.0-0.7) Basophils # (Auto) 0.0 x10^3/uL (0.0-0.2) Sodium Level 148 mmol/L (136-145) H Potassium Level 3.6 mmol/L (3.5-5.1) Chloride Level 108 mmol/L (98-107) H Carbon Dioxide Level 34 mmol/L (21-32) H Anion Gap 6 (6-14) Blood Urea Nitrogen 7 mg/dL (8-26) L Creatinine 0.9 mg/dL (0.7-1.3) Estimated GFR (Cockcroft-Gault) 82.9 BUN/Creatinine Ratio 8 (6-20) Glucose Level 113 mg/dL (70-99) H Calcium Level 8.8 mg/dL (8.5-10.1) Total Bilirubin 0.2 mg/dL (0.2-1.0) Aspartate Amino Transferase (AST) 12 U/L (15-37) L Alanine Aminotransferase (ALT) 12 U/L (16-63) L Alkaline Phosphatase 51 U/L (46-116) Total Protein 7.5 g/dL (6.4-8.2) Albumin 3.1 g/dL (3.4-5.0) L Albumin/Globulin Ratio 0.7 (1.0-1.7) L Valproic Acid Level 125 mcg/mL (50-100) H Valproic Acid Last Dose Date 12/05/2016 Valproic Acid Last Dose Time 2100 Carbamazepine (Tegretol) Level 6.7 mcg/mL (4.0-12.0) Carbamazepine Last Dose Date 12/05/16 Carbamazepine Last Dose Time 2100 Current Medications: Meds: Current Medications Acetaminophen (Tylenol) 650 mg PRN Q6HRS PRN PO PAIN / TEMP; Start 12/03/16 at 00:45 Multi-Ingredient Ointment (Analgesic [place]) 1 ailyn PRN QID PRN TP MUSCLE PAIN; Start 12/03/16 at 00:45 Al Hydroxide/Mg Hydroxide (Mylanta Plus Xs) 15 ml PRN AFTMEALHC PRN PO DYSPEPSIA; Start 12/03/16 at 00:45 Magnesium Hydroxide (Milk Of Magnesia) 2,400 mg PRN QHS PRN PO CONSTIPATION; Start 12/03/16 at 00:45 Buspirone HCl (Buspar) 10 mg BID PO Last administered on 12/05/16t 08:23; Start 12/03/16 at 09:00; Stop 12/05/16 at 18:53; Status DC Carbamazepine (TEGretol) 200 mg HS PO Last administered on 12/03/16 19:45; Start 12/03/16 at 21:00; Stop 12/04/16 at 06:05; Status DC Haloperidol (Haldol) 2 mg PRN Q4HRS PRN PO AGITATION; Start 12/03/16 at 01:15 Haloperidol (Haldol) 2 mg TID PO Last administered on 12/05/16 19:20; Start 12/03/16 at 09:00; Status Future Hold Olanzapine (ZyPREXA) 10 mg DAILY PO Last administered on 12/05/16 08:24; Start 12/03/16 at 09:00 Chlorpromazine HCl (Thorazine) 150 mg TID PO Last administered on 12/05/16 19: 21; Start 12/03/16 at 09:00 Non-Formulary Medication 100 mg TID PO ; Start 12/03/16 at 09:00; Status UNV Valproic Acid (Depakene) 250 mg BID PO Last administered on 12/04/16 09:22; Start 12/03/16 at 09:00; Stop 12/04/16 at 11:16; Status DC Influenza Virus Vaccine Quadrival (Fluarix Quad [id number] Syringe) 0.5 ml ONCE ONCE VAX IM Last administered on 12/03/16 09:06; Start 12/03/16 at 09:00; Stop 12/03/16 at 09:02; Status DC Acetaminophen (Tylenol) 650 mg PRN Q6HRS PRN PO PAIN / TEMP; Start 12/03/16 at 07:00 Bisacodyl (Dulcolax Supp) 10 mg PRN DAILY PRN RC CONSTIPATION; Start 12/03/16 at 07:00 Fluticasone Propionate (Flonase) 1 spray DAILY NS Last administered on 08:59; Start 12/03/16 at 09:00 Levothyroxine Sodium (Synthroid) 125 mcg DAILY06 PO Last administered on 05:18; Start 12/03/16 at 07:30 Polyethylene Glycol (miraLAX) 17 gm DAILY PO Last administered on 12/04/16 09: 22; Start 12/03/16 at 09:00 Tamsulosin HCl (Flomax) 0.4 mg HS PO Last administered on 12/05/16 19:20; Start 12/03/16 at 21:00 Trazodone HCl (Desyrel) 50 mg PRN QHS PRN PO INSOMNIA; Start 12/03/16 at 21:00 Mirtazapine (Remeron) 7.5 mg QHS PO Last administered on 12/05/16 19:20; Start 12/03/16 at 21:00 Carbamazepine (TEGretol) 200 mg BID76 PO Last administered on 12/06/16 05:18; Start 12/04/16 at 07:00 Vitamin D (Vitamin D3) 50,000 unit WEEKLY PO Last administered on 12/04/16 09: 23; Start 12/04/16 at 09:00 Atorvastatin Calcium (Lipitor) 20 mg QHS PO Last administered on 12/05/16 19: 20; Start 12/04/16 at 21:00 Valproic Acid (Depakene) 2,500 mg BID PO ; Start 12/04/16 at 21:00; Stop at 21:00; Status DC Valproic Acid (Depakene) 2,500 mg BID PO Last administered on 12/05/16 19:21; Start 12/04/16 at 21:00 Buspirone HCl (Buspar) 15 mg BID PO Last administered on 12/05/16 19:30; Start 12/05/16 at 21:00 Divalproex Sodium (Depakote Sprinkles) 2,500 mg 1X ONCE PO ; Start 12/06/16 at 10:00; Stop 12/06/16 at 10:01; Status DC Haloperidol Lactate (Haldol) 5 mg DAILY IM Last administered on 12/06/16 12:37 ; Start 12/06/16 at 12:30 Lorazepam (Ativan) 0.5 mg DAILY IM Last administered on 12/06/16 12:38; Start 12/06/16 at 12:30 Active Scripts Active Reported Aspirin 81 Mg Tab.chew 81 Mg PO DAILY Abilify (Aripiprazole) 5 Mg Tablet 5 Mg PO DAILY Olanzapine 10 Mg Tablet 10 Mg PO DAILY Haloperidol 2 Mg Tablet 2 Mg PO PRN Q4HRS PRN Haloperidol 2 Mg Tablet 2 Mg PO TID Chlorpromazine Hcl 100 Mg Tablet 100 Mg PO TID Chlorpromazine Hcl 50 Mg Tablet 50 Mg PO TID Acetaminophen 650 Mg/20.3 Ml Solution 650 Mg PO Q6HRS PRN Buspirone Hcl 10 Mg Tablet 10 Mg PO BID Depakene (Valproate Sodium) 250 Mg/5 Ml Solution 2,500 Mg PO BID Tamsulosin Hcl 0.4 Mg Cap.er.24h 0.4 Mg PO HS Miralax (Polyethylene Glycol 3350) 17 Gm Powd.pack 17 Gm PO DAILY Levothyroxine Sodium 125 Mcg Tablet 125 Mcg PO DAILYAC Carbamazepine 200 Mg Tablet 200 Mg PO HS Bisacodyl 10 Mg Supp.rect 10 Mg RC PRN DAILY PRN Fluticasone Propionate Nasal [place] (Fluticasone Propionate) 16 Gm [place].susp 1 Spr NS DAILY Diagnosis: Problems: (1) Altered mental state (2) Intellectual delay (3) Dementia with behavioral disturbance (4) Anxiety disorder (5) Impulse control disorder (6) Dementia in Alzheimer's disease with delusions (7) Dementia in Alzheimer's disease with depression (8) Bipolar affective, mixed RAVINDRA CHANG MD Dec 06, 2016 22:57
[2016-12-07] MEDS: LEVOTHYROXINE 125 MCG TABLET PO SCH (05:45)
[2016-12-07 05:55] VITALS: BP 151/82
[2016-12-07] MEDS: HALOPERIDOL LACT 5 MG/ML VIAL. IM SCH (07:23)
[2016-12-07] MEDS: LORazepam 2 MG/ML VIAL IM SCH (07:23)
[2016-12-07] MEDS: busPIRone 15 MG TABLET. PO SCH ×2 (07:38→19:52)
[2016-12-07] MEDS: carBAMazepine 200 MG TABLET PO SCH ×2 (07:38→16:46)
[2016-12-07] MEDS: OLANZapine 10 MG TABLET PO SCH (07:38)
[2016-12-07] MEDS: VALPROATE ACID 250 MG/5 ML ORAL SOLUTION PO SCH ×2 (07:41→19:52)
[2016-12-07] MEDS: chlorproMAZINE HCL 25 MG TABLET PO SCH ×3 (07:45→19:52)
[2016-12-07] MEDS: FLUTICASONE 50MCG/NASAL SPRAY 16GM BOTTLE. NS SCH (07:58)
[2016-12-07 08:18] LABS: HEMATOCRIT 35.2 % (39.0-53.0); HEMOGLOBIN 11.6 g/dL (13.0-17.5); RED BLOOD COUNT 3.93 x10^6/uL (4.30-5.70); RED CELL DISTRIBUTION WIDTH 18.3 % (11.5-14.5); WHITE BLOOD COUNT 4.8 x10^3/uL (4.0-11.0)
[2016-12-07 08:29] LABS: ALBUMIN/GLOBULIN RATIO 0.7 (1.0-1.7); CALCIUM 8.9 mg/dL (8.5-10.1); CREATININE 0.9 mg/dL (0.7-1.3); GFR 82.9; POTASSIUM 3.6 mmol/L (3.5-5.1); TOTAL BILIRUBIN 0.2 mg/dL (0.2-1.0); TOTAL PROTEIN 7.1 g/dL (6.4-8.2)
[2016-12-07] MEDS: POLYETHYLENE GLYCOL 3350 17 GM PACKET. PO SCH (09:00)
[2016-12-07 11:58] LABS: CARBAM 4.2 mcg/mL (4.0-12.0)
[2016-12-07 15:50] VITALS: BP 145/89
[2016-12-07] MEDS: ATORVASTATIN CALCIUM 20 MG TABLET PO SCH (19:52)
[2016-12-07] MEDS: TAMSULOSIN 0.4 MG CAP.ER.24H. PO SCH (19:52)
[2016-12-07] MEDS: traZODone 100 MG TABLET. PO PRN (19:54)
[2016-12-07] MEDS: MIRTAZAPINE 15 MG TABLET PO SCH (20:14)
--- NOTE | 2016-12-07 20:40 | PDOC ---
Exam Raghav Demential Exam: Raghav Note: Please also refer to the separate dictated note~for this date of service dictated separately.~Patient seen individually. Discussed the patient with Nursing staff reviewed the chart.~Reviewed interim history and current functioning. Reviewed vital signs,~Labs/ Radiology~and current medications noted below. Continue current treatment with the changes noted in the dictated addendum note Assessment: Vital Signs: Vital Signs Date Time Temp Pulse Resp B/P (MAP) Pulse Ox O2 Delivery O2 Flow Rate FiO2 12/07/16 15:50 97.7 109 20 145/89 (107) 95 12/06/16 06:07 Room Air I&O Intake and Output 12/08/16 07:00 Intake Total 0 ml Balance 0 ml Intake Oral 0 ml Labs: Laboratory Tests Test 12/07/16 08:04 White Blood Count 4.8 x10^3/uL (4.0-11.0) Red Blood Count 3.93 x10^6/uL (4.30-5.70) L Hemoglobin 11.6 g/dL (13.0-17.5) L Hematocrit 35.2 % (39.0-53.0) L Mean Corpuscular Volume 90 fL (79-100) Mean Corpuscular Hemoglobin 30 pg (25-35) Mean Corpuscular Hemoglobin Concent 33 g/dL (31-37) Red Cell Distribution Width 18.3 % (11.5-14.5) H Platelet Count 224 x10^3/uL (140-400) Sodium Level 149 mmol/L (136-145) H Potassium Level 3.6 mmol/L (3.5-5.1) Chloride Level 109 mmol/L (98-107) H Carbon Dioxide Level 33 mmol/L (21-32) H Anion Gap 7 (6-14) Blood Urea Nitrogen 9 mg/dL (8-26) Creatinine 0.9 mg/dL (0.7-1.3) Estimated GFR (Cockcroft-Gault) 82.9 BUN/Creatinine Ratio 10 (6-20) Glucose Level 96 mg/dL (70-99) Calcium Level 8.9 mg/dL (8.5-10.1) Total Bilirubin 0.2 mg/dL (0.2-1.0) Aspartate Amino Transferase (AST) 12 U/L (15-37) L Alanine Aminotransferase (ALT) 8 U/L (16-63) L Alkaline Phosphatase 51 U/L (46-116) Total Protein 7.1 g/dL (6.4-8.2) Albumin 3.0 g/dL (3.4-5.0) L Albumin/Globulin Ratio 0.7 (1.0-1.7) L Carbamazepine (Tegretol) Level 4.2 mcg/mL (4.0-12.0) Carbamazepine Last Dose Date 12/06/16 Carbamazepine Last Dose Time 2100 Current Medications: Meds: Current Medications Acetaminophen (Tylenol) 650 mg PRN Q6HRS PRN PO PAIN / TEMP; Start 12/03/16 at 00:45 Multi-Ingredient Ointment (Analgesic [place]) 1 ailyn PRN QID PRN TP MUSCLE PAIN; Start 12/03/16 at 00:45 Al Hydroxide/Mg Hydroxide (Mylanta Plus Xs) 15 ml PRN AFTMEALHC PRN PO DYSPEPSIA; Start 12/03/16 at 00:45 Magnesium Hydroxide (Milk Of Magnesia) 2,400 mg PRN QHS PRN PO CONSTIPATION; Start 12/03/16 at 00:45 Buspirone HCl (Buspar) 10 mg BID PO Last administered on 12/05/16 08:23; Start 12/03/16 at 09:00; Stop 12/05/16 at 18:53; Status DC Carbamazepine (TEGretol) 200 mg HS PO Last administered on 12/03/16 19:45; Start 12/03/16 at 21:00; Stop 12/04/16 at 06:05; Status DC Haloperidol (Haldol) 2 mg PRN Q4HRS PRN PO AGITATION Last administered on 16:46; Start 12/03/16 at 01:15; Status Future Hold Haloperidol (Haldol) 2 mg TID PO Last administered on 12/05/16 19:20; Start 12/03/16 at 09:00; Status Future Hold Olanzapine (ZyPREXA) 10 mg DAILY PO Last administered on 12/07/16 07:38; Start 12/03/16 at 09:00 Chlorpromazine HCl (Thorazine) 150 mg TID PO Last administered on 12/07/16 19: 52; Start 12/03/16 at 09:00 Non-Formulary Medication 100 mg TID PO ; Start 12/03/16 at 09:00; Status UNV Valproic Acid (Depakene) 250 mg BID PO Last administered on 12/04/16 09:22; Start 12/03/16 at 09:00; Stop 12/04/16 at 11:16; Status DC Influenza Virus Vaccine Quadrival (Fluarix Quad [id number] Syringe) 0.5 ml ONCE ONCE VAX IM Last administered on 12/03/16 09:06; Start 12/03/16 at 09:00; Stop 12/03/16 at 09:02; Status DC Acetaminophen (Tylenol) 650 mg PRN Q6HRS PRN PO PAIN / TEMP; Start 12/03/16 at 07:00 Bisacodyl (Dulcolax Supp) 10 mg PRN DAILY PRN RC CONSTIPATION; Start 12/03/16 at 07:00 Fluticasone Propionate (Flonase) 1 spray DAILY NS Last administered on 08:59; Start 12/03/16 at 09:00 Levothyroxine Sodium (Synthroid) 125 mcg DAILY06 PO Last administered on 05:18; Start 12/03/16 at 07:30 Polyethylene Glycol (miraLAX) 17 gm DAILY PO Last administered on 12/04/16 09: 22; Start 12/03/16 at 09:00 Tamsulosin HCl (Flomax) 0.4 mg HS PO Last administered on 12/07/16 19:52; Start 12/03/16 at 21:00 Trazodone HCl (Desyrel) 50 mg PRN QHS PRN PO INSOMNIA; Start 12/03/16 at 21:00 ; Stop 12/07/16 at 19:26; Status DC Mirtazapine (Remeron) 7.5 mg QHS PO Last administered on 12/05/16 19:20; Start 12/03/16 at 21:00; Stop 12/07/16 at 19:26; Status DC Carbamazepine (TEGretol) 200 mg BID76 PO Last administered on 12/07/16 16:46; Start 12/04/16 at 07:00 Vitamin D (Vitamin D3) 50,000 unit WEEKLY PO Last administered on 12/04/16 09: 23; Start 12/04/16 at 09:00 Atorvastatin Calcium (Lipitor) 20 mg QHS PO Last administered on 12/07/16 19: 52; Start 12/04/16 at 21:00 Valproic Acid (Depakene) 2,500 mg BID PO ; Start 12/04/16 at 21:00; Stop at 21:00; Status DC Valproic Acid (Depakene) 2,500 mg BID PO Last administered on 12/07/16 19:52; Start 12/04/16 at 21:00 Buspirone HCl (Buspar) 15 mg BID PO Last administered on 12/07/16 19:52; Start 12/05/16 at 21:00 Divalproex Sodium (Depakote Sprinkles) 2,500 mg 1X ONCE PO ; Start 12/06/16 at 10:00; Stop 12/06/16 at 10:01; Status DC Haloperidol Lactate (Haldol) 5 mg DAILY IM Last administered on 12/07/16 07:23 ; Start 12/06/16 at 12:30 Lorazepam (Ativan) 0.5 mg DAILY IM Last administered on 12/07/16 07:23; Start 12/06/16 at 12:30 Mirtazapine (Remeron) 15 mg QHS PO Last administered on 12/07/16 20:14; Start 12/07/16 at 21:00 Trazodone HCl (Desyrel) 100 mg PRN QHS PRN PO INSOMNIA, MAY REPEAT X1 Last administered on 12/07/16 19:54; Start 12/07/16 at 19:30 Trazodone HCl (Desyrel) 12.5 mg BID@0900,1200 PO ; Start 12/08/16 at 09:00 Trazodone HCl (Desyrel) 12.5 mg BID@1500,1800 PO ; Start 12/08/16 at 15:00 Active Scripts Active Reported Aspirin 81 Mg Tab.chew 81 Mg PO DAILY Abilify (Aripiprazole) 5 Mg Tablet 5 Mg PO DAILY Olanzapine 10 Mg Tablet 10 Mg PO DAILY Haloperidol 2 Mg Tablet 2 Mg PO PRN Q4HRS PRN Haloperidol 2 Mg Tablet 2 Mg PO TID Chlorpromazine Hcl 100 Mg Tablet 100 Mg PO TID Chlorpromazine Hcl 50 Mg Tablet 50 Mg PO TID Acetaminophen 650 Mg/20.3 Ml Solution 650 Mg PO Q6HRS PRN Buspirone Hcl 10 Mg Tablet 10 Mg PO BID Depakene (Valproate Sodium) 250 Mg/5 Ml Solution 2,500 Mg PO BID Tamsulosin Hcl 0.4 Mg Cap.er.24h 0.4 Mg PO HS Miralax (Polyethylene Glycol 3350) 17 Gm Powd.pack 17 Gm PO DAILY Levothyroxine Sodium 125 Mcg Tablet 125 Mcg PO DAILYAC Carbamazepine 200 Mg Tablet 200 Mg PO HS Bisacodyl 10 Mg Supp.rect 10 Mg RC PRN DAILY PRN Fluticasone Propionate Nasal [place] (Fluticasone Propionate) 16 Gm [place].susp 1 Spr NS DAILY Diagnosis: Problems: (1) Dementia with behavioral disturbance (2) Anxiety disorder (3) Impulse control disorder (4) Dementia in Alzheimer's disease with delusions (5) Dementia in Alzheimer's disease with depression (6) Bipolar affective, mixed RAVINDRA CHANG MD Dec 07, 2016 20:40
--- NOTE | 2016-12-07 22:21 | PN ---
DATE: 12/06/2016 This late entry 12/06/2016 covers elements not covered in my initial note of 12/06/2016, met with the patient in the evening of 12/06/2016. Nursing staff had called me as an emergency earlier and said that the patient is extremely labile and his mood, psychotic, agitated, aggressive, disruptive and yelling, kicking, punching staff resistive to medications. Nursing staff tried giving meds in ice cream, he threw it on the floor, wanted Mountain Dew, so tried giving meds in that, he poured that on his bed. After consent from his guardian, he was started on IM scheduled Haldol 5 mg, Ativan 0.5 mg once daily since he is not responding to oral psychotropics. He slept a good part of the afternoon and at the time, I met him in the evening, he was better, still a little sedated. REVIEW OF SYSTEMS: Ambulation impaired. No CV, , pulmonary, eye, ENT system symptoms on review. Reliability poor. MENTAL STATUS EXAM: Oriented to himself. Insight, judgment, recent and remote memory, attention, concentration, fund of knowledge poor, consistent with his diagnosis mentioned in my initial note. IMPRESSION: Bipolar 1 disorder, mixed with psychotic features. Major neurocognitive disorder, Alzheimer, vascular with depression, delusions and behavioral disturbance. Rest unchanged. PLAN: Continue psychotropics mentioned in my initial note along with the IM as mentioned above. Reviewed drug contractions, risk/benefit ratio favors no further change for now. RAVINDRA CHANG MD DR: EDUARDA/camelia JOB#: [id number] / [id number]
[2016-12-08] MEDS: LEVOTHYROXINE 125 MCG TABLET PO SCH (05:42)
[2016-12-08] MEDS: carBAMazepine 200 MG TABLET PO SCH ×2 (05:42→17:41)
[2016-12-08 06:23] VITALS: BP 146/81
[2016-12-08] MEDS: busPIRone 15 MG TABLET. PO SCH ×2 (08:05→20:34)
[2016-12-08] MEDS: OLANZapine 10 MG TABLET PO SCH (08:05)
[2016-12-08] MEDS: POLYETHYLENE GLYCOL 3350 17 GM PACKET. PO SCH (08:05)
[2016-12-08] MEDS: chlorproMAZINE HCL 25 MG TABLET PO SCH ×3 (08:06→20:34)
[2016-12-08] MEDS: LORazepam 2 MG/ML VIAL IM SCH (08:18)
[2016-12-08] MEDS: HALOPERIDOL LACT 5 MG/ML VIAL. IM SCH (08:18)
[2016-12-08] MEDS: FLUTICASONE 50MCG/NASAL SPRAY 16GM BOTTLE. NS SCH (08:21)
[2016-12-08] MEDS: traZODone 50 MG TABLET. PO SCH ×4 (08:22→17:41)
[2016-12-08] MEDS: VALPROATE ACID 250 MG/5 ML ORAL SOLUTION PO SCH (08:22)
[2016-12-08] MEDS ORDERED: DIVALPROEX 125 MG CAP.SPRINK PO SCH (09:00)
[2016-12-08 16:10] VITALS: BP 123/80
--- NOTE | 2016-12-08 20:28 | PDOC ---
Exam Raghav Demential Exam: Raghav Note: Please also refer to the separate dictated note~for this date of service dictated separately.~Patient seen individually. Discussed the patient with Nursing staff reviewed the chart.~Reviewed interim history and current functioning. Reviewed vital signs,~Labs/ Radiology~and current medications noted below. Continue current treatment with the changes noted in the dictated addendum note Assessment: Vital Signs: Vital Signs Date Time Temp Pulse Resp B/P (MAP) Pulse Ox O2 Delivery O2 Flow Rate FiO2 12/08/16 16:10 97.0 78 18 123/80 (94) 95 Room Air I&O Intake and Output 12/09/16 07:00 Intake Total 180 ml Balance 180 ml Intake Oral 180 ml Current Medications: Meds: Current Medications Acetaminophen (Tylenol) 650 mg PRN Q6HRS PRN PO PAIN / TEMP; Start 12/03/16 at 00:45 Multi-Ingredient Ointment (Analgesic [place]) 1 ailyn PRN QID PRN TP MUSCLE PAIN; Start 12/03/16 at 00:45 Al Hydroxide/Mg Hydroxide (Mylanta Plus Xs) 15 ml PRN AFTMEALHC PRN PO DYSPEPSIA; Start 12/03/16 at 00:45 Magnesium Hydroxide (Milk Of Magnesia) 2,400 mg PRN QHS PRN PO CONSTIPATION; Start 12/03/16 at 00:45 Buspirone HCl (Buspar) 10 mg BID PO Last administered on 12/05/16 08:23; Start 12/03/16 at 09:00; Stop 12/05/16 at 18:53; Status DC Carbamazepine (TEGretol) 200 mg HS PO Last administered on 12/03/16 19:45; Start 12/03/16 at 21:00; Stop 12/04/16 at 06:05; Status DC Haloperidol (Haldol) 2 mg PRN Q4HRS PRN PO AGITATION Last administered on 16:46; Start 12/03/16 at 01:15; Status Future Hold Haloperidol (Haldol) 2 mg TID PO Last administered on 12/05/16 19:20; Start 12/03/16 at 09:00; Status Future Hold Olanzapine (ZyPREXA) 10 mg DAILY PO Last administered on 12/08/16 08:05; Start 12/03/16 at 09:00 Chlorpromazine HCl (Thorazine) 150 mg TID PO Last administered on 12/08/16 13: 47; Start 12/03/16 at 09:00 Non-Formulary Medication 100 mg TID PO ; Start 12/03/16 at 09:00; Status UNV Valproic Acid (Depakene) 250 mg BID PO Last administered on 12/04/16 09:22; Start 12/03/16 at 09:00; Stop 12/04/16 at 11:16; Status DC Influenza Virus Vaccine Quadrival (Fluarix Quad [id number] Syringe) 0.5 ml ONCE ONCE VAX IM Last administered on 12/03/16 09:06; Start 12/03/16 at 09:00; Stop 12/03/16 at 09:02; Status DC Acetaminophen (Tylenol) 650 mg PRN Q6HRS PRN PO PAIN / TEMP; Start 12/03/16 at 07:00 Bisacodyl (Dulcolax Supp) 10 mg PRN DAILY PRN RC CONSTIPATION; Start 12/03/16 at 07:00 Fluticasone Propionate (Flonase) 1 spray DAILY NS Last administered on 08:21; Start 12/03/16 at 09:00 Levothyroxine Sodium (Synthroid) 125 mcg DAILY06 PO Last administered on 05:42; Start 12/03/16 at 07:30 Polyethylene Glycol (miraLAX) 17 gm DAILY PO Last administered on 12/08/16 08: 05; Start 12/03/16 at 09:00 Tamsulosin HCl (Flomax) 0.4 mg HS PO Last administered on 12/07/16 19:52; Start 12/03/16 at 21:00 Trazodone HCl (Desyrel) 50 mg PRN QHS PRN PO INSOMNIA; Start 12/03/16 at 21:00 ; Stop 12/07/16 at 19:26; Status DC Mirtazapine (Remeron) 7.5 mg QHS PO Last administered on 12/05/16 19:20; Start 12/03/16 at 21:00; Stop 12/07/16 at 19:26; Status DC Carbamazepine (TEGretol) 200 mg BID76 PO Last administered on 12/08/16 05:42; Start 12/04/16 at 07:00 Vitamin D (Vitamin D3) 50,000 unit WEEKLY PO Last administered on 12/04/16 09: 23; Start 12/04/16 at 09:00 Atorvastatin Calcium (Lipitor) 20 mg QHS PO Last administered on 12/07/16 19: 52; Start 12/04/16 at 21:00 Valproic Acid (Depakene) 2,500 mg BID PO ; Start 12/04/16 at 21:00; Stop at 21:00; Status DC Valproic Acid (Depakene) 2,500 mg BID PO Last administered on 12/07/16 19:52; Start 12/04/16 at 21:00; Stop 12/08/16 at 13:41; Status DC Buspirone HCl (Buspar) 15 mg BID PO Last administered on 12/08/16 08:05; Start 12/05/16 at 21:00 Divalproex Sodium (Depakote Sprinkles) 2,500 mg 1X ONCE PO ; Start 12/06/16 at 10:00; Stop 12/06/16 at 10:01; Status DC Haloperidol Lactate (Haldol) 5 mg DAILY IM Last administered on 12/08/16 08:18 ; Start 12/06/16 at 12:30 Lorazepam (Ativan) 0.5 mg DAILY IM Last administered on 12/08/16 08:18; Start 12/06/16 at 12:30 Mirtazapine (Remeron) 15 mg QHS PO Last administered on 12/07/16 20:14; Start 12/07/16 at 21:00 Trazodone HCl (Desyrel) 100 mg PRN QHS PRN PO INSOMNIA, MAY REPEAT X1 Last administered on 12/07/16 19:54; Start 12/07/16 at 19:30 Trazodone HCl (Desyrel) 12.5 mg BID@0900,1200 PO Last administered on 12:07; Start 12/08/16 at 09:00 Trazodone HCl (Desyrel) 12.5 mg BID@1500,1800 PO ; Start 12/08/16 at 15:00 Divalproex Sodium (Depakote Sprinkles) 2,000 mg BID PO ; Start 12/08/16 at 09:00 ; Stop 12/08/16 at 14:40; Status DC Divalproex Sodium (Depakote Sprinkles) 2,000 mg BID PO ; Start 12/09/16 at 09: 00 Active Scripts Active Reported Aspirin 81 Mg Tab.chew 81 Mg PO DAILY Abilify (Aripiprazole) 5 Mg Tablet 5 Mg PO DAILY Olanzapine 10 Mg Tablet 10 Mg PO DAILY Haloperidol 2 Mg Tablet 2 Mg PO PRN Q4HRS PRN Haloperidol 2 Mg Tablet 2 Mg PO TID Chlorpromazine Hcl 100 Mg Tablet 100 Mg PO TID Chlorpromazine Hcl 50 Mg Tablet 50 Mg PO TID Acetaminophen 650 Mg/20.3 Ml Solution 650 Mg PO Q6HRS PRN Buspirone Hcl 10 Mg Tablet 10 Mg PO BID Depakene (Valproate Sodium) 250 Mg/5 Ml Solution 2,500 Mg PO BID Tamsulosin Hcl 0.4 Mg Cap.er.24h 0.4 Mg PO HS Miralax (Polyethylene Glycol 3350) 17 Gm Powd.pack 17 Gm PO DAILY Levothyroxine Sodium 125 Mcg Tablet 125 Mcg PO DAILYAC Carbamazepine 200 Mg Tablet 200 Mg PO HS Bisacodyl 10 Mg Supp.rect 10 Mg RC PRN DAILY PRN Fluticasone Propionate Nasal [place] (Fluticasone Propionate) 16 Gm [place].susp 1 Spr NS DAILY Diagnosis: Problems: (1) Altered mental state (2) Intellectual delay (3) Dementia with behavioral disturbance (4) Anxiety disorder (5) Impulse control disorder (6) Dementia in Alzheimer's disease with delusions (7) Dementia in Alzheimer's disease with depression (8) Bipolar affective, mixed RAVINDRA CHANG MD Dec 08, 2016 20:28
[2016-12-08] MEDS: TAMSULOSIN 0.4 MG CAP.ER.24H. PO SCH (20:34)
[2016-12-08] MEDS: MIRTAZAPINE 15 MG TABLET PO SCH (20:34)
[2016-12-08] MEDS: ATORVASTATIN CALCIUM 20 MG TABLET PO SCH (20:34)
[2016-12-08 22:16] VITALS: BP 120/70
--- NOTE | 2016-12-08 22:50 | RAD ---
AP portable chest radiograph 12/08/2016 Clinical History: Unresponsive patient. Possible aspiration pneumonia.. An AP erect portable digital radiograph of the chest was obtained. The degree of inspiration is shallow. Elevation of the right hemidiaphragm is noted. The cardiac silhouette is borderline enlarged. Atherosclerotic calcification of the thoracic aorta is seen. The thoracic aorta is mildly tortuous. Right basilar subsegmental atelectasis is seen. No area of consolidation is identified. No pneumothorax or pleural effusion is noted. There is diffuse osteopenia the visualized bony structures. Degenerative changes are seen involving the thoracic spine. IMPRESSION: No area of consolidation is seen. Electronically signed by: Joaquim Angulo MD (12/08/2016 10:47 PM) [facility]
--- NOTE | 2016-12-08 23:03 | PN ---
DATE: 12/07/2016 PSYCHIATRIC PROGRESS NOTE This is a late entry, date of service 12/07/2016 covers elements, not covered in my initial note of 12/07/2016. SUBJECTIVE: I met with the patient the evening of 12/07/2016, discussed with nursing staff prior to that on a couple of occasions since the patient continues to be extremely labile, agitated, yelling, kicking, grabbing at staff. He slept 3-1/4 hours previous evening. REVIEW OF SYSTEMS: Ambulation impaired, in wheelchair. No CV, , pulmonary, eye, ENT system symptoms on review. Reliability poor. MENTAL STATUS EXAM: Oriented to himself. Insight, judgment, recent and remote memory, attention, concentration, fund of knowledge poor, consistent with his diagnosis. IMPRESSION: Major neurocognitive disorder, Alzheimer, vascular with delusion, depression, behavioral disturbance; anxiety disorder, unspecified; mental retardation, bipolar 1 disorder, mixed with psychotic features. Rest of diagnoses unchanged. PLAN: Increase trazodone from 50 mg at bedtime p.r.n., may repeat x1 to 100 mg at bedtime p.r.n., may repeat x1. Discontinue the oral Haldol since he is on IM Haldol and Ativan. Start trazodone 12.5 mg 4 times a day, 9, 12, 3 p.m. and 6 p.m. Increase Remeron from 7.5 mg at bedtime to 15 mg p.o. at bedtime. Reviewed drug interactions. Risk/benefit ratio favors no further change. RAVINDRA CHANG MD DR: EDUARDA/camelia JOB#: [id number] / [id number]
[2016-12-09] MEDS: LEVOTHYROXINE 125 MCG TABLET PO SCH (05:22)
[2016-12-09] MEDS: carBAMazepine 200 MG TABLET PO SCH ×2 (05:22→17:31)
[2016-12-09 07:13] VITALS: BP 151/86
[2016-12-09] MEDS: OLANZapine 10 MG TABLET PO SCH (07:37)
[2016-12-09] MEDS: busPIRone 15 MG TABLET. PO SCH ×3 (07:38→19:25)
[2016-12-09] MEDS: HALOPERIDOL LACT 5 MG/ML VIAL. IM SCH (07:40)
[2016-12-09] MEDS: traZODone 50 MG TABLET. PO SCH ×6 (07:40→17:32)
[2016-12-09] MEDS: LORazepam 2 MG/ML VIAL IM SCH (07:41)
[2016-12-09] MEDS: POLYETHYLENE GLYCOL 3350 17 GM PACKET. PO SCH (07:43)
[2016-12-09] MEDS: chlorproMAZINE HCL 25 MG TABLET PO SCH ×5 (07:44→19:27)
[2016-12-09] MEDS: DIVALPROEX 125 MG CAP.SPRINK PO SCH ×3 (07:46→19:25)
[2016-12-09] MEDS: FLUTICASONE 50MCG/NASAL SPRAY 16GM BOTTLE. NS SCH (07:47)
[2016-12-09 16:00] VITALS: BP 126/82
[2016-12-09] MEDS: MIRTAZAPINE 15 MG TABLET PO SCH (19:26)
[2016-12-09] MEDS: ATORVASTATIN CALCIUM 20 MG TABLET PO SCH (19:26)
[2016-12-09] MEDS: TAMSULOSIN 0.4 MG CAP.ER.24H. PO SCH (19:26)
--- NOTE | 2016-12-09 20:48 | PDOC ---
Exam Raghav Demential Exam: Raghav Note: Please also refer to the separate dictated note~for this date of service dictated separately.~Patient seen individually. Discussed the patient with Nursing staff reviewed the chart.~Reviewed interim history and current functioning. Reviewed vital signs,~Labs/ Radiology~and current medications noted below. Continue current treatment with the changes noted in the dictated addendum note Assessment: Vital Signs: Vital Signs Date Time Temp Pulse Resp B/P (MAP) Pulse Ox O2 Delivery O2 Flow Rate FiO2 12/09/16 16:00 97.5 98 17 126/82 (97) 97 12/08/16 22:16 Room Air I&O Intake and Output 12/10/16 07:00 Intake Total 360 ml Balance 360 ml Intake Oral 360 ml # Voids 1 Current Medications: Meds: Current Medications Acetaminophen (Tylenol) 650 mg PRN Q6HRS PRN PO PAIN / TEMP; Start 12/03/16 at 00:45 Multi-Ingredient Ointment (Analgesic [place]) 1 ailyn PRN QID PRN TP MUSCLE PAIN; Start 12/03/16 at 00:45 Al Hydroxide/Mg Hydroxide (Mylanta Plus Xs) 15 ml PRN AFTMEALHC PRN PO DYSPEPSIA; Start 12/03/16 at 00:45 Magnesium Hydroxide (Milk Of Magnesia) 2,400 mg PRN QHS PRN PO CONSTIPATION; Start 12/03/16 at 00:45 Buspirone HCl (Buspar) 10 mg BID PO Last administered on 12/05/16 08:23; Start 12/03/16 at 09:00; Stop 12/05/16 at 18:53; Status DC Carbamazepine (TEGretol) 200 mg HS PO Last administered on 12/03/16 19:45; Start 12/03/16 at 21:00; Stop 12/04/16 at 06:05; Status DC Haloperidol (Haldol) 2 mg PRN Q4HRS PRN PO AGITATION Last administered on 16:46; Start 12/03/16 at 01:15; Status Future Hold Haloperidol (Haldol) 2 mg TID PO Last administered on 12/05/16 19:20; Start 12/03/16 at 09:00; Status Future Hold Olanzapine (ZyPREXA) 10 mg DAILY PO Last administered on 12/09/16 07:37; Start 12/03/16 at 09:00 Chlorpromazine HCl (Thorazine) 150 mg TID PO Last administered on 12/09/16 19 :27; Start 12/03/16 at 09:00 Non-Formulary Medication 100 mg TID PO ; Start 12/03/16 at 09:00; Status UNV Valproic Acid (Depakene) 250 mg BID PO Last administered on 12/04/16 09:22; Start 12/03/16 at 09:00; Stop 12/04/16 at 11:16; Status DC Influenza Virus Vaccine Quadrival (Fluarix Quad [id number] Syringe) 0.5 ml ONCE ONCE VAX IM Last administered on 12/03/16 09:06; Start 12/03/16 at 09:00; Stop 12/03/16 at 09:02; Status DC Acetaminophen (Tylenol) 650 mg PRN Q6HRS PRN PO PAIN / TEMP; Start 12/03/16 at 07:00 Bisacodyl (Dulcolax Supp) 10 mg PRN DAILY PRN RC CONSTIPATION; Start 12/03/16 at 07:00 Fluticasone Propionate (Flonase) 1 spray DAILY NS Last administered on 07:47; Start 12/03/16 at 09:00 Levothyroxine Sodium (Synthroid) 125 mcg DAILY06 PO Last administered on 05:22; Start 12/03/16 at 07:30 Polyethylene Glycol (miraLAX) 17 gm DAILY PO Last administered on 12/09/16 07 :43; Start 12/03/16 at 09:00 Tamsulosin HCl (Flomax) 0.4 mg HS PO Last administered on 12/09/16 19:26; Start 12/03/16 at 21:00 Trazodone HCl (Desyrel) 50 mg PRN QHS PRN PO INSOMNIA; Start 12/03/16 at 21:00 ; Stop 12/07/16 at 19:26; Status DC Mirtazapine (Remeron) 7.5 mg QHS PO Last administered on 12/05/16 19:20; Start 12/03/16 at 21:00; Stop 12/07/16 at 19:26; Status DC Carbamazepine (TEGretol) 200 mg BID76 PO Last administered on 12/09/16 17:31 ; Start 12/04/16 at 07:00 Vitamin D (Vitamin D3) 50,000 unit WEEKLY PO Last administered on 12/04/16 09: 23; Start 12/04/16 at 09:00 Atorvastatin Calcium (Lipitor) 20 mg QHS PO Last administered on 12/09/16 19: 26; Start 12/04/16 at 21:00 Valproic Acid (Depakene) 2,500 mg BID PO ; Start 12/04/16 at 21:00; Stop at 21:00; Status DC Valproic Acid (Depakene) 2,500 mg BID PO Last administered on 12/07/16 19:52; Start 12/04/16 at 21:00; Stop 12/08/16 at 13:41; Status DC Buspirone HCl (Buspar) 15 mg BID PO Last administered on 12/09/16 19:25; Start 12/05/16 at 21:00 Divalproex Sodium (Depakote Sprinkles) 2,500 mg 1X ONCE PO ; Start 12/06/16 at 10:00; Stop 12/06/16 at 10:01; Status DC Haloperidol Lactate (Haldol) 5 mg DAILY IM Last administered on 12/09/16 07: 40; Start 12/06/16 at 12:30 Lorazepam (Ativan) 0.5 mg DAILY IM Last administered on 12/09/16 07:41; Start 12/06/16 at 12:30 Mirtazapine (Remeron) 15 mg QHS PO Last administered on 12/09/16 19:26; Start 12/07/16 at 21:00 Trazodone HCl (Desyrel) 100 mg PRN QHS PRN PO INSOMNIA, MAY REPEAT X1 Last administered on 12/07/16 19:54; Start 12/07/16 at 19:30 Trazodone HCl (Desyrel) 12.5 mg BID@0900,1200 PO Last administered on 13:16; Start 12/08/16 at 09:00; Stop 12/09/16 at 16:24; Status DC Trazodone HCl (Desyrel) 12.5 mg BID@1500,1800 PO ; Start 12/08/16 at 15:00; Stop 12/09/16 at 16:24; Status DC Divalproex Sodium (Depakote Sprinkles) 2,000 mg BID PO ; Start 12/08/16 at 09:00 ; Stop 12/08/16 at 14:40; Status DC Divalproex Sodium (Depakote Sprinkles) 2,000 mg BID PO Last administered on 19:25; Start 12/09/16 at 09:00 Trazodone HCl (Desyrel) 25 mg BID@1500,1800 PO Last administered on 12/09/16 17:32; Start 12/09/16 at 18:00 Trazodone HCl (Desyrel) 25 mg BID@0900,1200 PO ; Start 12/10/16 at 09:00 Active Scripts Active Reported Aspirin 81 Mg Tab.chew 81 Mg PO DAILY Abilify (Aripiprazole) 5 Mg Tablet 5 Mg PO DAILY Olanzapine 10 Mg Tablet 10 Mg PO DAILY Haloperidol 2 Mg Tablet 2 Mg PO PRN Q4HRS PRN Haloperidol 2 Mg Tablet 2 Mg PO TID Chlorpromazine Hcl 100 Mg Tablet 100 Mg PO TID Chlorpromazine Hcl 50 Mg Tablet 50 Mg PO TID Acetaminophen 650 Mg/20.3 Ml Solution 650 Mg PO Q6HRS PRN Buspirone Hcl 10 Mg Tablet 10 Mg PO BID Depakene (Valproate Sodium) 250 Mg/5 Ml Solution 2,500 Mg PO BID Tamsulosin Hcl 0.4 Mg Cap.er.24h 0.4 Mg PO HS Miralax (Polyethylene Glycol 3350) 17 Gm Powd.pack 17 Gm PO DAILY Levothyroxine Sodium 125 Mcg Tablet 125 Mcg PO DAILYAC Carbamazepine 200 Mg Tablet 200 Mg PO HS Bisacodyl 10 Mg Supp.rect 10 Mg RC PRN DAILY PRN Fluticasone Propionate Nasal [place] (Fluticasone Propionate) 16 Gm [place].susp 1 Spr NS DAILY Diagnosis: Problems: (1) Altered mental state (2) Intellectual delay (3) Dementia with behavioral disturbance (4) Anxiety disorder (5) Impulse control disorder (6) Dementia in Alzheimer's disease with delusions (7) Dementia in Alzheimer's disease with depression (8) Bipolar affective, mixed RAVINDRA CHANG MD Dec 09, 2016 20:47
--- NOTE | 2016-12-10 02:42 | PN ---
DATE: 12/08/2016 This late entry 12/08/2016 covers elements not covered in my initial note of 12/08/2016. I met with the patient in the afternoon of 12/08/2016. The patient's valproic acid level was 124, slightly elevated and we had stopped the Depakote 2500 mg twice a day for 2 doses, then to resume at 2 g twice a day with repeat CBC, CMP, valproic acid level 2 days after that. He was drooling and oversedated and thus the changes. We had also added trazodone 12.5 mg 4 times a day, to be held if sedated. On account of his ongoing agitation, yelling, screaming, mood lability, all of this is continued, though he has been a little more sedated at times. He spits out his medications frequently, gets aggressive. REVIEW OF SYSTEMS: Ambulation impaired. No CV, , pulmonary, eye, ENT system symptoms on review. Reliability poor. MENTAL STATUS EXAM: Oriented to himself. Insight, judgment, recent and remote memory, attention, concentration, fund of knowledge poor, consistent with his diagnosis mentioned in my initial note. PLAN: Changes in his psychotropics mentioned above, rest will continue unchanged. If the agitation resurfaces with the yelling starting on 12/09/2016, we may increase the trazodone from 12.5 mg 4 times a day to 25 mg 4 times a day. Reviewed drug interactions, risk/benefit ratio favors no further change. RAVINDRA CHANG MD DR: EDUARDA/camelia JOB#: [id number] / [id number]
[2016-12-10] MEDS: LEVOTHYROXINE 125 MCG TABLET PO SCH (06:00)
[2016-12-10] MEDS: POLYETHYLENE GLYCOL 3350 17 GM PACKET. PO SCH (09:00)
[2016-12-10] MEDS: FLUTICASONE 50MCG/NASAL SPRAY 16GM BOTTLE. NS SCH (09:00)
[2016-12-10] MEDS: chlorproMAZINE HCL 25 MG TABLET PO SCH ×3 (10:49→20:15)
[2016-12-10] MEDS: busPIRone 15 MG TABLET. PO SCH ×2 (10:50→20:14)
[2016-12-10] MEDS: OLANZapine 10 MG TABLET PO SCH (10:50)
[2016-12-10] MEDS: DIVALPROEX 125 MG CAP.SPRINK PO SCH ×2 (10:50→20:15)
[2016-12-10] MEDS: carBAMazepine 200 MG TABLET PO SCH ×2 (10:50→19:09)
[2016-12-10] MEDS: traZODone 50 MG TABLET. PO SCH ×4 (10:51→18:00)
[2016-12-10] MEDS: HALOPERIDOL LACT 5 MG/ML VIAL. IM SCH (10:51)
[2016-12-10] MEDS: LORazepam 2 MG/ML VIAL IM SCH (10:51)
[2016-12-10 11:36] LABS: BASO % 0 % (0-3); EOS # 0.2 x10^3/uL (0.0-0.7); EOS % 6 % (0-3); HEMATOCRIT 36.6 % (39.0-53.0); LYMPH # 0.8 x10^3/uL (1.0-4.8); LYMPH % 20 % (24-48); MEAN CORPUSCULAR HEMOGLOBIN 29 pg (25-35); MEAN CORPUSCULAR HGB CONC 33 g/dL (31-37); MEAN CORPUSCULAR VOLUME 90 fL (79-100); MONO # 0.5 x10^3/uL (0.0-1.1); MONO % 14 % (0-9); NEUT # 2.2 x10^3uL (1.8-7.7); NEUT % 59 % (31-73); PLATELET COUNT 250 x10^3/uL (140-400); RED BLOOD COUNT 4.07 x10^6/uL (4.30-5.70); RED CELL DISTRIBUTION WIDTH 18.4 % (11.5-14.5); WHITE BLOOD COUNT 3.8 x10^3/uL (4.0-11.0)
[2016-12-10 11:51] LABS: ALBUMIN 3.1 g/dL (3.4-5.0); ALBUMIN/GLOBULIN RATIO 0.7 (1.0-1.7); ALK PHOS 55 U/L (46-116); ALT (SGPT) 12 U/L (16-63); ANION GAP 8 (6-14); AST (SGOT) 13 U/L (15-37); BLOOD UREA NITROGEN 12 mg/dL (8-26); BUN/CREATININE RATIO 13 (6-20); CALCIUM 8.7 mg/dL (8.5-10.1); CARBON DIOXIDE 33 mmol/L (21-32); CHLORIDE 109 mmol/L (98-107); CREATININE 0.9 mg/dL (0.7-1.3); GFR 82.9; GLUCOSE 108 mg/dL (70-99); POTASSIUM 3.5 mmol/L (3.5-5.1); SODIUM 150 mmol/L (136-145); TOTAL BILIRUBIN 0.2 mg/dL (0.2-1.0); TOTAL PROTEIN 7.8 g/dL (6.4-8.2)
[2016-12-10 11:55] LABS: VAL ACID 88 mcg/mL (50-100)
[2016-12-10 16:40] VITALS: BP 99/70
[2016-12-10] MEDS: TAMSULOSIN 0.4 MG CAP.ER.24H. PO SCH (20:15)
[2016-12-10] MEDS: MIRTAZAPINE 15 MG TABLET PO SCH (20:15)
[2016-12-10] MEDS: ATORVASTATIN CALCIUM 20 MG TABLET PO SCH (20:15)
--- NOTE | 2016-12-10 20:30 | PDOC ---
Exam Raghav Demential Exam: Raghav Note: Please also refer to the separate dictated note~for this date of service dictated separately.~Patient seen individually. Discussed the patient with Nursing staff reviewed the chart.~Reviewed interim history and current functioning. Reviewed vital signs,~Labs/ Radiology~and current medications noted below. Continue current treatment with the changes noted in the dictated addendum note Assessment: Vital Signs: Vital Signs Date Time Temp Pulse Resp B/P (MAP) Pulse Ox O2 Delivery O2 Flow Rate FiO2 12/10/16 16:40 97.2 94 18 99/70 (80) 92 12/08/16 22:16 Room Air Labs: Laboratory Tests Test 12/10/16 11:24 White Blood Count 3.8 x10^3/uL (4.0-11.0) L Red Blood Count 4.07 x10^6/uL (4.30-5.70) L Hemoglobin 12.0 g/dL (13.0-17.5) L Hematocrit 36.6 % (39.0-53.0) L Mean Corpuscular Volume 90 fL (79-100) Mean Corpuscular Hemoglobin 29 pg (25-35) Mean Corpuscular Hemoglobin Concent 33 g/dL (31-37) Red Cell Distribution Width 18.4 % (11.5-14.5) H Platelet Count 250 x10^3/uL (140-400) Neutrophils (%) (Auto) 59 % (31-73) Lymphocytes (%) (Auto) 20 % (24-48) L Monocytes (%) (Auto) 14 % (0-9) H Eosinophils (%) (Auto) 6 % (0-3) H Basophils (%) (Auto) 0 % (0-3) Neutrophils # (Auto) 2.2 x10^3uL (1.8-7.7) Lymphocytes # (Auto) 0.8 x10^3/uL (1.0-4.8) L Monocytes # (Auto) 0.5 x10^3/uL (0.0-1.1) Eosinophils # (Auto) 0.2 x10^3/uL (0.0-0.7) Basophils # (Auto) 0.0 x10^3/uL (0.0-0.2) Sodium Level 150 mmol/L (136-145) H Potassium Level 3.5 mmol/L (3.5-5.1) Chloride Level 109 mmol/L (98-107) H Carbon Dioxide Level 33 mmol/L (21-32) H Anion Gap 8 (6-14) Blood Urea Nitrogen 12 mg/dL (8-26) Creatinine 0.9 mg/dL (0.7-1.3) Estimated GFR (Cockcroft-Gault) 82.9 BUN/Creatinine Ratio 13 (6-20) Glucose Level 108 mg/dL (70-99) H Calcium Level 8.7 mg/dL (8.5-10.1) Total Bilirubin 0.2 mg/dL (0.2-1.0) Aspartate Amino Transferase (AST) 13 U/L (15-37) L Alanine Aminotransferase (ALT) 12 U/L (16-63) L Alkaline Phosphatase 55 U/L (46-116) Total Protein 7.8 g/dL (6.4-8.2) Albumin 3.1 g/dL (3.4-5.0) L Albumin/Globulin Ratio 0.7 (1.0-1.7) L Valproic Acid Level 88 mcg/mL (50-100) Valproic Acid Last Dose Date 12/09/16 Valproic Acid Last Dose Time 2100 Current Medications: Meds: Current Medications Acetaminophen (Tylenol) 650 mg PRN Q6HRS PRN PO PAIN / TEMP; Start 12/03/16 at 00:45 Multi-Ingredient Ointment (Analgesic [place]) 1 ailyn PRN QID PRN TP MUSCLE PAIN; Start 12/03/16 at 00:45 Al Hydroxide/Mg Hydroxide (Mylanta Plus Xs) 15 ml PRN AFTMEALHC PRN PO DYSPEPSIA; Start 12/03/16 at 00:45 Magnesium Hydroxide (Milk Of Magnesia) 2,400 mg PRN QHS PRN PO CONSTIPATION; Start 12/03/16 at 00:45 Buspirone HCl (Buspar) 10 mg BID PO Last administered on 12/05/16 08:23; Start 12/03/16 at 09:00; Stop 12/05/16 at 18:53; Status DC Carbamazepine (TEGretol) 200 mg HS PO Last administered on 12/03/16 19:45; Start 12/03/16 at 21:00; Stop 12/04/16 at 06:05; Status DC Haloperidol (Haldol) 2 mg PRN Q4HRS PRN PO AGITATION Last administered on 16:46; Start 12/03/16 at 01:15; Status Future Hold Haloperidol (Haldol) 2 mg TID PO Last administered on 12/05/16 19:20; Start 12/03/16 at 09:00; Status Future Hold Olanzapine (ZyPREXA) 10 mg DAILY PO Last administered on 12/10/16 10:50; Start 12/03/16 at 09:00 Chlorpromazine HCl (Thorazine) 150 mg TID PO Last administered on 12/10/16 20 :15; Start 12/03/16 at 09:00 Non-Formulary Medication 100 mg TID PO ; Start 12/03/16 at 09:00; Status UNV Valproic Acid (Depakene) 250 mg BID PO Last administered on 12/04/16 09:22; Start 12/03/16 at 09:00; Stop 12/04/16 at 11:16; Status DC Influenza Virus Vaccine Quadrival (Fluarix Quad [id number] Syringe) 0.5 ml ONCE ONCE VAX IM Last administered on 12/03/16 09:06; Start 12/03/16 at 09:00; Stop 12/03/16 at 09:02; Status DC Acetaminophen (Tylenol) 650 mg PRN Q6HRS PRN PO PAIN / TEMP; Start 12/03/16 at 07:00 Bisacodyl (Dulcolax Supp) 10 mg PRN DAILY PRN RC CONSTIPATION; Start 12/03/16 at 07:00 Fluticasone Propionate (Flonase) 1 spray DAILY NS Last administered on 07:47; Start 12/03/16 at 09:00 Levothyroxine Sodium (Synthroid) 125 mcg DAILY06 PO Last administered on 05:22; Start 12/03/16 at 07:30 Polyethylene Glycol (miraLAX) 17 gm DAILY PO Last administered on 12/09/16 07 :43; Start 12/03/16 at 09:00 Tamsulosin HCl (Flomax) 0.4 mg HS PO Last administered on 12/10/16 20:15; Start 12/03/16 at 21:00 Trazodone HCl (Desyrel) 50 mg PRN QHS PRN PO INSOMNIA; Start 12/03/16 at 21:00 ; Stop 12/07/16 at 19:26; Status DC Mirtazapine (Remeron) 7.5 mg QHS PO Last administered on 12/05/16 19:20; Start 12/03/16 at 21:00; Stop 12/07/16 at 19:26; Status DC Carbamazepine (TEGretol) 200 mg BID76 PO Last administered on 12/10/16 19:09 ; Start 12/04/16 at 07:00 Vitamin D (Vitamin D3) 50,000 unit WEEKLY PO Last administered on 12/04/16 09: 23; Start 12/04/16 at 09:00 Atorvastatin Calcium (Lipitor) 20 mg QHS PO Last administered on 12/10/16 20: 15; Start 12/04/16 at 21:00 Valproic Acid (Depakene) 2,500 mg BID PO ; Start 12/04/16 at 21:00; Stop at 21:00; Status DC Valproic Acid (Depakene) 2,500 mg BID PO Last administered on 12/07/16 19:52; Start 12/04/16 at 21:00; Stop 12/08/16 at 13:41; Status DC Buspirone HCl (Buspar) 15 mg BID PO Last administered on 12/10/16 20:14; Start 12/05/16 at 21:00 Divalproex Sodium (Depakote Sprinkles) 2,500 mg 1X ONCE PO ; Start 12/06/16 at 10:00; Stop 12/06/16 at 10:01; Status DC Haloperidol Lactate (Haldol) 5 mg DAILY IM Last administered on 12/10/16 10: 51; Start 12/06/16 at 12:30 Lorazepam (Ativan) 0.5 mg DAILY IM Last administered on 12/10/16 10:51; Start 12/06/16 at 12:30 Mirtazapine (Remeron) 15 mg QHS PO Last administered on 12/10/16 20:15; Start 12/07/16 at 21:00 Trazodone HCl (Desyrel) 100 mg PRN QHS PRN PO INSOMNIA, MAY REPEAT X1 Last administered on 12/07/16 19:54; Start 12/07/16 at 19:30 Trazodone HCl (Desyrel) 12.5 mg BID@0900,1200 PO Last administered on 13:16; Start 12/08/16 at 09:00; Stop 12/09/16 at 16:24; Status DC Trazodone HCl (Desyrel) 12.5 mg BID@1500,1800 PO ; Start 12/08/16 at 15:00; Stop 12/09/16 at 16:24; Status DC Divalproex Sodium (Depakote Sprinkles) 2,000 mg BID PO ; Start 12/08/16 at 09:00 ; Stop 12/08/16 at 14:40; Status DC Divalproex Sodium (Depakote Sprinkles) 2,000 mg BID PO Last administered on 20:15; Start 12/09/16 at 09:00 Trazodone HCl (Desyrel) 25 mg BID@1500,1800 PO Last administered on 12/09/16 17:32; Start 12/09/16 at 18:00 Trazodone HCl (Desyrel) 25 mg BID@0900,1200 PO Last administered on 12/10/16 13:39; Start 12/10/16 at 09:00 Active Scripts Active Reported Aspirin 81 Mg Tab.chew 81 Mg PO DAILY Abilify (Aripiprazole) 5 Mg Tablet 5 Mg PO DAILY Olanzapine 10 Mg Tablet 10 Mg PO DAILY Haloperidol 2 Mg Tablet 2 Mg PO PRN Q4HRS PRN Haloperidol 2 Mg Tablet 2 Mg PO TID Chlorpromazine Hcl 100 Mg Tablet 100 Mg PO TID Chlorpromazine Hcl 50 Mg Tablet 50 Mg PO TID Acetaminophen 650 Mg/20.3 Ml Solution 650 Mg PO Q6HRS PRN Buspirone Hcl 10 Mg Tablet 10 Mg PO BID Depakene (Valproate Sodium) 250 Mg/5 Ml Solution 2,500 Mg PO BID Tamsulosin Hcl 0.4 Mg Cap.er.24h 0.4 Mg PO HS Miralax (Polyethylene Glycol 3350) 17 Gm Powd.pack 17 Gm PO DAILY Levothyroxine Sodium 125 Mcg Tablet 125 Mcg PO DAILYAC Carbamazepine 200 Mg Tablet 200 Mg PO HS Bisacodyl 10 Mg Supp.rect 10 Mg RC PRN DAILY PRN Fluticasone Propionate Nasal [place] (Fluticasone Propionate) 16 Gm [place].susp 1 Spr NS DAILY Diagnosis: Problems: (1) Altered mental state (2) Intellectual delay (3) Dementia with behavioral disturbance (4) Anxiety disorder (5) Impulse control disorder (6) Dementia in Alzheimer's disease with delusions (7) Dementia in Alzheimer's disease with depression (8) Bipolar affective, mixed RAVINDRA CHANG MD Dec 10, 2016 20:30
--- NOTE | 2016-12-11 03:58 | PN ---
DATE: 12/09/2016 This late entry 12/09/2016 covers elements not covered in my initial note of 12/09/2016. I met with the patient in the evening of 12/09/2016, the patient slept 8-1/4 hours previous evening, has had a very difficult day, screaming, spitting out his medications at nursing staff, agitated, impulsive, explosive. REVIEW OF SYSTEMS: Ambulation impaired in wheelchair. No CV, , pulmonary, eye, ENT system symptoms on review. Reliability poor. MENTAL STATUS EXAM: Oriented to himself. Insight, judgment, recent and remote memory, attention, concentration, fund of knowledge poor, consistent with his diagnosis mentioned in my initial note. PLAN: Trazodone was increased on 12/09, scheduled during the day. Continue rest of psychotropics, reviewed drug interactions, risk/benefit ratio favors no further change. MAN Dominique CHANG MD DR: EDUARDA/camelia JOB#: [id number] / [id number]
[2016-12-11] MEDS: LEVOTHYROXINE 125 MCG TABLET PO SCH ×2 (06:00→07:41)
[2016-12-11 06:06] VITALS: BP 118/60
[2016-12-11] MEDS: carBAMazepine 200 MG TABLET PO SCH ×3 (07:00→17:35)
[2016-12-11] MEDS: traZODone 50 MG TABLET. PO SCH ×5 (07:41→17:35)
[2016-12-11] MEDS: OLANZapine 10 MG TABLET PO SCH ×2 (07:41→09:00)
[2016-12-11] MEDS: CHOLECALCIFEROL (VITAMIN D3) 50,000 UNIT CAPSULE PO SCH ×2 (07:41→09:00)
[2016-12-11] MEDS: busPIRone 15 MG TABLET. PO SCH ×3 (07:42→17:36)
[2016-12-11] MEDS: chlorproMAZINE HCL 25 MG TABLET PO SCH ×4 (07:42→20:13)
[2016-12-11] MEDS: POLYETHYLENE GLYCOL 3350 17 GM PACKET. PO SCH ×2 (07:43→09:00)
[2016-12-11] MEDS: DIVALPROEX 125 MG CAP.SPRINK PO SCH ×3 (07:43→20:12)
[2016-12-11] MEDS: LORazepam 2 MG/ML VIAL IM SCH (07:46)
[2016-12-11] MEDS: FLUTICASONE 50MCG/NASAL SPRAY 16GM BOTTLE. NS SCH ×2 (07:46→09:00)
[2016-12-11] MEDS: HALOPERIDOL LACT 5 MG/ML VIAL. IM SCH (07:46)
[2016-12-11] MEDS ORDERED: busPIRone 10 MG TABLET. PO PRN (11:30)
[2016-12-11 16:29] VITALS: BP 115/80
[2016-12-11] MEDS: IV DEXTROSE 5% 1,000 ML IV SCH (19:13)
[2016-12-11] MEDS ORDERED: BISACODYL 10 MG SUPP.RECT PR PRN (19:45)
[2016-12-11] MEDS: TAMSULOSIN 0.4 MG CAP.ER.24H. PO SCH (20:12)
[2016-12-11] MEDS: MIRTAZAPINE 15 MG TABLET PO SCH (20:12)
[2016-12-11] MEDS: ATORVASTATIN CALCIUM 20 MG TABLET PO SCH (20:12)
--- NOTE | 2016-12-11 20:37 | PDOC ---
Exam Raghav Demential Exam: Raghav Note: Please also refer to the separate dictated note~for this date of service dictated separately.~Patient seen individually. Discussed the patient with Nursing staff reviewed the chart.~Reviewed interim history and current functioning. Reviewed vital signs,~Labs/ Radiology~and current medications noted below. Continue current treatment with the changes noted in the dictated addendum note Assessment: Vital Signs: Vital Signs Date Time Temp Pulse Resp B/P (MAP) Pulse Ox O2 Delivery O2 Flow Rate FiO2 12/11/16 16:29 97.3 100 20 115/80 (92) 95 12/08/16 22:16 Room Air I&O Intake and Output 12/12/16 07:00 Intake Total 480 ml Balance 480 ml Intake Oral 480 ml Current Medications: Meds: Current Medications Acetaminophen (Tylenol) 650 mg PRN Q6HRS PRN PO PAIN / TEMP; Start 12/03/16 at 00:45 Multi-Ingredient Ointment (Analgesic [place]) 1 ailyn PRN QID PRN TP MUSCLE PAIN; Start 12/03/16 at 00:45 Al Hydroxide/Mg Hydroxide (Mylanta Plus Xs) 15 ml PRN AFTMEALHC PRN PO DYSPEPSIA; Start 12/03/16 at 00:45 Magnesium Hydroxide (Milk Of Magnesia) 2,400 mg PRN QHS PRN PO CONSTIPATION; Start 12/03/16 at 00:45 Buspirone HCl (Buspar) 10 mg BID PO Last administered on 12/05/16 08:23; Start 12/03/16 at 09:00; Stop 12/05/16 at 18:53; Status DC Carbamazepine (TEGretol) 200 mg HS PO Last administered on 12/03/16 19:45; Start 12/03/16 at 21:00; Stop 12/04/16 at 06:05; Status DC Haloperidol (Haldol) 2 mg PRN Q4HRS PRN PO AGITATION Last administered on 16:46; Start 12/03/16 at 01:15; Status Future Hold Haloperidol (Haldol) 2 mg TID PO Last administered on 12/05/16 19:20; Start 12/03/16 at 09:00; Status Future Hold Olanzapine (ZyPREXA) 10 mg DAILY PO Last administered on 12/10/16 10:50; Start 12/03/16 at 09:00 Chlorpromazine HCl (Thorazine) 150 mg TID PO Last administered on 12/11/16 20 :13; Start 12/03/16 at 09:00 Non-Formulary Medication 100 mg TID PO ; Start 12/03/16 at 09:00; Status UNV Valproic Acid (Depakene) 250 mg BID PO Last administered on 12/04/16 09:22; Start 12/03/16 at 09:00; Stop 12/04/16 at 11:16; Status DC Influenza Virus Vaccine Quadrival (Fluarix Quad [id number] Syringe) 0.5 ml ONCE ONCE VAX IM Last administered on 12/03/16 09:06; Start 12/03/16 at 09:00; Stop 12/03/16 at 09:02; Status DC Acetaminophen (Tylenol) 650 mg PRN Q6HRS PRN PO PAIN / TEMP; Start 12/03/16 at 07:00 Bisacodyl (Dulcolax Supp) 10 mg PRN DAILY PRN RC CONSTIPATION; Start 12/03/16 at 07:00 Fluticasone Propionate (Flonase) 1 spray DAILY NS Last administered on 07:47; Start 12/03/16 at 09:00 Levothyroxine Sodium (Synthroid) 125 mcg DAILY06 PO Last administered on 05:22; Start 12/03/16 at 07:30 Polyethylene Glycol (miraLAX) 17 gm DAILY PO Last administered on 12/09/16 07 :43; Start 12/03/16 at 09:00; Stop 12/11/16 at 19:44; Status DC Tamsulosin HCl (Flomax) 0.4 mg HS PO Last administered on 12/11/16 20:12; Start 12/03/16 at 21:00 Trazodone HCl (Desyrel) 50 mg PRN QHS PRN PO INSOMNIA; Start 12/03/16 at 21:00 ; Stop 12/07/16 at 19:26; Status DC Mirtazapine (Remeron) 7.5 mg QHS PO Last administered on 12/05/16 19:20; Start 12/03/16 at 21:00; Stop 12/07/16 at 19:26; Status DC Carbamazepine (TEGretol) 200 mg BID76 PO Last administered on 12/11/16 17:35 ; Start 12/04/16 at 07:00 Vitamin D (Vitamin D3) 50,000 unit WEEKLY PO Last administered on 12/04/16 09: 23; Start 12/04/16 at 09:00 Atorvastatin Calcium (Lipitor) 20 mg QHS PO Last administered on 12/11/16 20: 12; Start 12/04/16 at 21:00 Valproic Acid (Depakene) 2,500 mg BID PO ; Start 12/04/16 at 21:00; Stop at 21:00; Status DC Valproic Acid (Depakene) 2,500 mg BID PO Last administered on 12/07/16 19:52; Start 12/04/16 at 21:00; Stop 12/08/16 at 13:41; Status DC Buspirone HCl (Buspar) 15 mg BID PO Last administered on 12/10/16 20:14; Start 12/05/16 at 21:00; Stop 12/11/16 at 11:23; Status DC Divalproex Sodium (Depakote Sprinkles) 2,500 mg 1X ONCE PO ; Start 12/06/16 at 10:00; Stop 12/06/16 at 10:01; Status DC Haloperidol Lactate (Haldol) 5 mg DAILY IM Last administered on 12/11/16 07: 46; Start 12/06/16 at 12:30 Lorazepam (Ativan) 0.5 mg DAILY IM Last administered on 12/11/16 07:46; Start 12/06/16 at 12:30 Mirtazapine (Remeron) 15 mg QHS PO Last administered on 12/11/16 20:12; Start 12/07/16 at 21:00 Trazodone HCl (Desyrel) 100 mg PRN QHS PRN PO INSOMNIA, MAY REPEAT X1 Last administered on 12/07/16 19:54; Start 12/07/16 at 19:30 Trazodone HCl (Desyrel) 12.5 mg BID@0900,1200 PO Last administered on 13:16; Start 12/08/16 at 09:00; Stop 12/09/16 at 16:24; Status DC Trazodone HCl (Desyrel) 12.5 mg BID@1500,1800 PO ; Start 12/08/16 at 15:00; Stop 12/09/16 at 16:24; Status DC Divalproex Sodium (Depakote Sprinkles) 2,000 mg BID PO ; Start 12/08/16 at 09:00 ; Stop 12/08/16 at 14:40; Status DC Divalproex Sodium (Depakote Sprinkles) 2,000 mg BID PO Last administered on 20:12; Start 12/09/16 at 09:00 Trazodone HCl (Desyrel) 25 mg BID@1500,1800 PO Last administered on 12/11/16 17:35; Start 12/09/16 at 18:00 Trazodone HCl (Desyrel) 25 mg BID@0900,1200 PO Last administered on 12/10/16 13:39; Start 12/10/16 at 09:00 Buspirone HCl (Buspar) 15 mg BID@0900,1700 PO Last administered on 12/11/16 17:36; Start 12/11/16 at 17:00 Buspirone HCl (Buspar) 10 mg PRN DAILY@1200 PRN PO ANXIETY; Start 12/11/16 at 11:30 Dextrose 1,000 ml @ 100 mls/hr Q10H IV Last administered on 12/11/16 19:13; Start 12/11/16 at 17:15 Bisacodyl (Dulcolax Supp) 10 mg PRN DAILY PRN [place] CONSTIPATION; Start 12/11/16 at 19:45 Active Scripts Active Reported Aspirin 81 Mg Tab.chew 81 Mg PO DAILY Abilify (Aripiprazole) 5 Mg Tablet 5 Mg PO DAILY Olanzapine 10 Mg Tablet 10 Mg PO DAILY Haloperidol 2 Mg Tablet 2 Mg PO PRN Q4HRS PRN Haloperidol 2 Mg Tablet 2 Mg PO TID Chlorpromazine Hcl 100 Mg Tablet 100 Mg PO TID Chlorpromazine Hcl 50 Mg Tablet 50 Mg PO TID Acetaminophen 650 Mg/20.3 Ml Solution 650 Mg PO Q6HRS PRN Buspirone Hcl 10 Mg Tablet 10 Mg PO BID Depakene (Valproate Sodium) 250 Mg/5 Ml Solution 2,500 Mg PO BID Tamsulosin Hcl 0.4 Mg Cap.er.24h 0.4 Mg PO HS Miralax (Polyethylene Glycol 3350) 17 Gm Powd.pack 17 Gm PO DAILY Levothyroxine Sodium 125 Mcg Tablet 125 Mcg PO DAILYAC Carbamazepine 200 Mg Tablet 200 Mg PO HS Bisacodyl 10 Mg Supp.rect 10 Mg RC PRN DAILY PRN Fluticasone Propionate Nasal [place] (Fluticasone Propionate) 16 Gm [place].susp 1 Spr NS DAILY Diagnosis: Problems: (1) Altered mental state (2) Intellectual delay (3) Dementia with behavioral disturbance (4) Anxiety disorder (5) Impulse control disorder (6) Dementia in Alzheimer's disease with delusions (7) Dementia in Alzheimer's disease with depression (8) Bipolar affective, mixed RAVINDRA CHANG MD Dec 11, 2016 20:37
[2016-12-12] MEDS: IV DEXTROSE 5% 1,000 ML IV SCH ×2 (05:10→15:03)
[2016-12-12] MEDS ORDERED: SODIUM PHOSPHATES 19/7GM 133 ML ENEMA. PR PRN (06:00)
[2016-12-12] MEDS: LEVOTHYROXINE 125 MCG TABLET PO SCH (06:05)
[2016-12-12] MEDS: carBAMazepine 200 MG TABLET PO SCH ×2 (06:05→18:00)
[2016-12-12 06:18] VITALS: BP 117/88
[2016-12-12] MEDS: traZODone 50 MG TABLET. PO SCH ×4 (09:00→18:00)
[2016-12-12] MEDS: chlorproMAZINE HCL 25 MG TABLET PO SCH ×3 (09:00→19:26)
[2016-12-12] MEDS: FLUTICASONE 50MCG/NASAL SPRAY 16GM BOTTLE. NS SCH (09:00)
[2016-12-12 09:20] LABS: BASO % 0 % (0-3); EOS # 0.2 x10^3/uL (0.0-0.7); EOS % 4 % (0-3); HEMATOCRIT 32.6 % (39.0-53.0); HEMOGLOBIN 10.8 g/dL (13.0-17.5); LYMPH # 0.6 x10^3/uL (1.0-4.8); LYMPH % 14 % (24-48); MEAN CORPUSCULAR HEMOGLOBIN 30 pg (25-35); MEAN CORPUSCULAR HGB CONC 33 g/dL (31-37); MEAN CORPUSCULAR VOLUME 89 fL (79-100); MONO # 0.8 x10^3/uL (0.0-1.1); MONO % 17 % (0-9); NEUT # 2.8 x10^3uL (1.8-7.7); NEUT % 65 % (31-73); PLATELET COUNT 206 x10^3/uL (140-400); RED BLOOD COUNT 3.66 x10^6/uL (4.30-5.70); RED CELL DISTRIBUTION WIDTH 18.2 % (11.5-14.5); WHITE BLOOD COUNT 4.4 x10^3/uL (4.0-11.0)
[2016-12-12 09:35] LABS: ALBUMIN 2.7 g/dL (3.4-5.0); ALBUMIN/GLOBULIN RATIO 0.7 (1.0-1.7); CALCIUM 8.6 mg/dL (8.5-10.1); CREATININE 0.9 mg/dL (0.7-1.3); GFR 82.9; POTASSIUM 3.5 mmol/L (3.5-5.1); TOTAL BILIRUBIN 0.2 mg/dL (0.2-1.0); TOTAL PROTEIN 6.5 g/dL (6.4-8.2)
[2016-12-12] MEDS: HALOPERIDOL LACT 5 MG/ML VIAL. IM SCH (11:40)
[2016-12-12] MEDS: LORazepam 2 MG/ML VIAL IM SCH (11:40)
[2016-12-12] MEDS: busPIRone 15 MG TABLET. PO SCH ×2 (12:01→16:38)
[2016-12-12] MEDS: OLANZapine 10 MG TABLET PO SCH (12:01)
[2016-12-12] MEDS: DIVALPROEX 125 MG CAP.SPRINK PO SCH ×2 (12:02→19:25)
[2016-12-12 13:30] LABS: CARBAM 6.1 mcg/mL (4.0-12.0)
[2016-12-12 16:36] VITALS: BP 128/77
[2016-12-12] MEDS: POTASSIUM CL 20MEQ IN D5W 1,000 ML IV SCH (16:38)
[2016-12-12] MEDS: MIRTAZAPINE 15 MG TABLET PO SCH (19:26)
[2016-12-12] MEDS: ATORVASTATIN CALCIUM 20 MG TABLET PO SCH (19:26)
[2016-12-12] MEDS: TAMSULOSIN 0.4 MG CAP.ER.24H. PO SCH (19:26)
--- NOTE | 2016-12-12 20:44 | PDOC ---
Exam Raghav Demential Exam: Raghav Note: Please also refer to the separate dictated note~for this date of service dictated separately.~Patient seen individually. Discussed the patient with Nursing staff reviewed the chart.~Reviewed interim history and current functioning. Reviewed vital signs,~Labs/ Radiology~and current medications noted below. Continue current treatment with the changes noted in the dictated addendum note Assessment: Vital Signs: Vital Signs Date Time Temp Pulse Resp B/P (MAP) Pulse Ox O2 Delivery O2 Flow Rate FiO2 12/12/16 16:36 98.2 83 20 128/77 (94) 93 12/08/16 22:16 Room Air I&O Intake and Output 12/13/16 07:00 Intake Total 0 ml Balance 0 ml Intake Oral 0 ml # Bowel Movements 1 Labs: Laboratory Tests Test 12/12/16 09:03 White Blood Count 4.4 x10^3/uL (4.0-11.0) Red Blood Count 3.66 x10^6/uL (4.30-5.70) L Hemoglobin 10.8 g/dL (13.0-17.5) L Hematocrit 32.6 % (39.0-53.0) L Mean Corpuscular Volume 89 fL (79-100) Mean Corpuscular Hemoglobin 30 pg (25-35) Mean Corpuscular Hemoglobin Concent 33 g/dL (31-37) Red Cell Distribution Width 18.2 % (11.5-14.5) H Platelet Count 206 x10^3/uL (140-400) Neutrophils (%) (Auto) 65 % (31-73) Lymphocytes (%) (Auto) 14 % (24-48) L Monocytes (%) (Auto) 17 % (0-9) H Eosinophils (%) (Auto) 4 % (0-3) H Basophils (%) (Auto) 0 % (0-3) Neutrophils # (Auto) 2.8 x10^3uL (1.8-7.7) Lymphocytes # (Auto) 0.6 x10^3/uL (1.0-4.8) L Monocytes # (Auto) 0.8 x10^3/uL (0.0-1.1) Eosinophils # (Auto) 0.2 x10^3/uL (0.0-0.7) Basophils # (Auto) 0.0 x10^3/uL (0.0-0.2) Sodium Level 144 mmol/L (136-145) Potassium Level 3.5 mmol/L (3.5-5.1) Chloride Level 106 mmol/L (98-107) Carbon Dioxide Level 33 mmol/L (21-32) H Anion Gap 5 (6-14) L Blood Urea Nitrogen 12 mg/dL (8-26) Creatinine 0.9 mg/dL (0.7-1.3) Estimated GFR (Cockcroft-Gault) 82.9 BUN/Creatinine Ratio 13 (6-20) Glucose Level 133 mg/dL (70-99) H Calcium Level 8.6 mg/dL (8.5-10.1) Total Bilirubin 0.2 mg/dL (0.2-1.0) Aspartate Amino Transferase (AST) 12 U/L (15-37) L Alanine Aminotransferase (ALT) 10 U/L (16-63) L Alkaline Phosphatase 41 U/L (46-116) L Total Protein 6.5 g/dL (6.4-8.2) Albumin 2.7 g/dL (3.4-5.0) L Albumin/Globulin Ratio 0.7 (1.0-1.7) L Carbamazepine (Tegretol) Level 6.1 mcg/mL (4.0-12.0) Carbamazepine Last Dose Date 12/11/16 Carbamazepine Last Dose Time 2100 Current Medications: Meds: Current Medications Acetaminophen (Tylenol) 650 mg PRN Q6HRS PRN PO PAIN / TEMP; Start 12/03/16 at 00:45 Multi-Ingredient Ointment (Analgesic [place]) 1 ailyn PRN QID PRN TP MUSCLE PAIN; Start 12/03/16 at 00:45 Al Hydroxide/Mg Hydroxide (Mylanta Plus Xs) 15 ml PRN AFTMEALHC PRN PO DYSPEPSIA; Start 12/03/16 at 00:45 Magnesium Hydroxide (Milk Of Magnesia) 2,400 mg PRN QHS PRN PO CONSTIPATION; Start 12/03/16 at 00:45 Buspirone HCl (Buspar) 10 mg BID PO Last administered on 12/05/16t 08:23; Start 12/03/16 at 09:00; Stop 12/05/16 at 18:53; Status DC Carbamazepine (TEGretol) 200 mg HS PO Last administered on 12/03/16 19:45; Start 12/03/16 at 21:00; Stop 12/04/16 at 06:05; Status DC Haloperidol (Haldol) 2 mg PRN Q4HRS PRN PO AGITATION Last administered on 16:46; Start 12/03/16 at 01:15; Status Future Hold Haloperidol (Haldol) 2 mg TID PO Last administered on 12/05/16 19:20; Start 12/03/16 at 09:00; Status Future Hold Olanzapine (ZyPREXA) 10 mg DAILY PO Last administered on 12/12/16 12:01; Start 12/03/16 at 09:00; Stop 12/12/16 at 18:33; Status DC Chlorpromazine HCl (Thorazine) 150 mg TID PO Last administered on 12/11/16 20 :13; Start 12/03/16 at 09:00 Non-Formulary Medication 100 mg TID PO ; Start 12/03/16 at 09:00; Status UNV Valproic Acid (Depakene) 250 mg BID PO Last administered on 12/04/16 09:22; Start 12/03/16 at 09:00; Stop 12/04/16 at 11:16; Status DC Influenza Virus Vaccine Quadrival (Fluarix Quad [id number] Syringe) 0.5 ml ONCE ONCE VAX IM Last administered on 12/03/16 09:06; Start 12/03/16 at 09:00; Stop 12/03/16 at 09:02; Status DC Acetaminophen (Tylenol) 650 mg PRN Q6HRS PRN PO PAIN / TEMP; Start 12/03/16 at 07:00 Bisacodyl (Dulcolax Supp) 10 mg PRN DAILY PRN RC CONSTIPATION; Start 12/03/16 at 07:00 Fluticasone Propionate (Flonase) 1 spray DAILY NS Last administered on 07:47; Start 12/03/16 at 09:00 Levothyroxine Sodium (Synthroid) 125 mcg DAILY06 PO Last administered on 06:05; Start 12/03/16 at 07:30 Polyethylene Glycol (miraLAX) 17 gm DAILY PO Last administered on 12/09/16 07 :43; Start 12/03/16 at 09:00; Stop 12/11/16 at 19:44; Status DC Tamsulosin HCl (Flomax) 0.4 mg HS PO Last administered on 12/11/16 20:12; Start 12/03/16 at 21:00 Trazodone HCl (Desyrel) 50 mg PRN QHS PRN PO INSOMNIA; Start 12/03/16 at 21:00 ; Stop 12/07/16 at 19:26; Status DC Mirtazapine (Remeron) 7.5 mg QHS PO Last administered on 12/05/16 19:20; Start 12/03/16 at 21:00; Stop 12/07/16 at 19:26; Status DC Carbamazepine (TEGretol) 200 mg BID76 PO Last administered on 12/12/16 06:05 ; Start 12/04/16 at 07:00 Vitamin D (Vitamin D3) 50,000 unit WEEKLY PO Last administered on 12/04/16 09: 23; Start 12/04/16 at 09:00 Atorvastatin Calcium (Lipitor) 20 mg QHS PO Last administered on 12/11/16 20: 12; Start 12/04/16 at 21:00 Valproic Acid (Depakene) 2,500 mg BID PO ; Start 12/04/16 at 21:00; Stop at 21:00; Status DC Valproic Acid (Depakene) 2,500 mg BID PO Last administered on 12/07/16 19:52; Start 12/04/16 at 21:00; Stop 12/08/16 at 13:41; Status DC Buspirone HCl (Buspar) 15 mg BID PO Last administered on 12/10/16 20:14; Start 12/05/16 at 21:00; Stop 12/11/16 at 11:23; Status DC Divalproex Sodium (Depakote Sprinkles) 2,500 mg 1X ONCE PO ; Start 12/06/16 at 10:00; Stop 12/06/16 at 10:01; Status DC Haloperidol Lactate (Haldol) 5 mg DAILY IM Last administered on 12/12/16 11: 40; Start 12/06/16 at 12:30 Lorazepam (Ativan) 0.5 mg DAILY IM Last administered on 12/12/16 11:40; Start 12/06/16 at 12:30 Mirtazapine (Remeron) 15 mg QHS PO Last administered on 12/11/16 20:12; Start 12/07/16 at 21:00 Trazodone HCl (Desyrel) 100 mg PRN QHS PRN PO INSOMNIA, MAY REPEAT X1 Last administered on 12/07/16 19:54; Start 12/07/16 at 19:30 Trazodone HCl (Desyrel) 12.5 mg BID@0900,1200 PO Last administered on 13:16; Start 12/08/16 at 09:00; Stop 12/09/16 at 16:24; Status DC Trazodone HCl (Desyrel) 12.5 mg BID@1500,1800 PO ; Start 12/08/16 at 15:00; Stop 12/09/16 at 16:24; Status DC Divalproex Sodium (Depakote Sprinkles) 2,000 mg BID PO ; Start 12/08/16 at 09:00 ; Stop 12/08/16 at 14:40; Status DC Divalproex Sodium (Depakote Sprinkles) 2,000 mg BID PO Last administered on 12:02; Start 12/09/16 at 09:00 Trazodone HCl (Desyrel) 25 mg BID@1500,1800 PO Last administered on 12/11/16 17:35; Start 12/09/16 at 18:00 Trazodone HCl (Desyrel) 25 mg BID@0900,1200 PO Last administered on 12/10/16 13:39; Start 12/10/16 at 09:00 Buspirone HCl (Buspar) 15 mg BID@0900,1700 PO Last administered on 12/12/16 12:01; Start 12/11/16 at 17:00 Buspirone HCl (Buspar) 10 mg PRN DAILY@1200 PRN PO ANXIETY; Start 12/11/16 at 11:30 Dextrose 1,000 ml @ 75 mls/hr [id number] IV Last administered on 12/12/16 15:03 ; Start 12/11/16 at 17:15; Stop 12/12/16 at 16:17; Status DC Bisacodyl (Dulcolax Supp) 10 mg PRN DAILY PRN [place] CONSTIPATION Last administered on 12/11/16 20:56; Start 12/11/16 at 19:45; Stop 12/12/16 at 15 :03; Status DC Sodium Biphosphate/ Sodium Phosphate ([place]) 133 ml PRN DAILY PRN RI CONSTIPATION Last administered on 12/12/16 06:05; Start 12/12/16 at 06:00 Potassium Chloride/Dextrose 1,000 ml @ 75 mls/hr [id number] IV Last administered on 12/12/16 16:38; Start 12/12/16 at 17:00 Active Scripts Active Reported Aspirin 81 Mg Tab.chew 81 Mg PO DAILY Abilify (Aripiprazole) 5 Mg Tablet 5 Mg PO DAILY Olanzapine 10 Mg Tablet 10 Mg PO DAILY Haloperidol 2 Mg Tablet 2 Mg PO PRN Q4HRS PRN Haloperidol 2 Mg Tablet 2 Mg PO TID Chlorpromazine Hcl 100 Mg Tablet 100 Mg PO TID Chlorpromazine Hcl 50 Mg Tablet 50 Mg PO TID Acetaminophen 650 Mg/20.3 Ml Solution 650 Mg PO Q6HRS PRN Buspirone Hcl 10 Mg Tablet 10 Mg PO BID Depakene (Valproate Sodium) 250 Mg/5 Ml Solution 2,500 Mg PO BID Tamsulosin Hcl 0.4 Mg Cap.er.24h 0.4 Mg PO HS Miralax (Polyethylene Glycol 3350) 17 Gm Powd.pack 17 Gm PO DAILY Levothyroxine Sodium 125 Mcg Tablet 125 Mcg PO DAILYAC Carbamazepine 200 Mg Tablet 200 Mg PO HS Bisacodyl 10 Mg Supp.rect 10 Mg RC PRN DAILY PRN Fluticasone Propionate Nasal [place] (Fluticasone Propionate) 16 Gm [place].susp 1 Spr NS DAILY Diagnosis: Problems: (1) Altered mental state (2) Intellectual delay (3) Dementia with behavioral disturbance (4) Anxiety disorder (5) Impulse control disorder (6) Dementia in Alzheimer's disease with delusions (7) Dementia in Alzheimer's disease with depression (8) Bipolar affective, mixed RAVINDRA CHANG MD Dec 12, 2016 20:44
--- NOTE | 2016-12-13 00:07 | PN ---
DATE: 12/10/2016 PSYCHIATRIC PROGRESS NOTE This is a late entry for 12/10/2016, covers elements not covered in my initial note of 12/10/2016. SUBJECTIVE: I met with the patient the evening of 12/10/2016. Overall, the patient remains quite labile, pushes his tray off the table and throws it on the floor. Oral intake and fluid intake is limited. He is getting dehydrated, we will defer this to Dr. Velazquez. We will check a CMP as well. He slept in to about 10 a.m., was then yelling and screaming, woke up later. Valproic acid level is 88 on 12/10/2016. REVIEW OF SYSTEMS: Ambulation impaired in Broda chair. No CV, , pulmonary, eye, ENT system symptoms on review. Reliability poor. MENTAL STATUS EXAM: Oriented to himself. Insight, judgment, recent and remote memory, attention, concentration, fund of knowledge poor, consistent with his diagnosis mentioned in my initial note. PLAN: Continue current psychotropics, treat the dehydration, maintain IM Haldol and Ativan for now with oral Haldol on hold. Continue Depakote, level is therapeutic. Tegretol, repeat level is awaited. Hold trazodone if daytime dosage if sedated. Make further changes as clinically indicated. Reviewed drug interactions. Risk/benefit ratio favors no further change. MAN Dominique CHANG MD DR: EDUARDA/camelia JOB#: [id number] / [id number]
--- NOTE | 2016-12-13 03:56 | PN ---
DATE: 12/11/2016 This late entry for 12/11/2016 covers elements not covered in my initial note of 12/11/2016. SUBJECTIVE: The patient was staffed at a treatment team meeting with the entire team morning of 12/11/2016, seen individually evening of 12/11/2016. He remains labile, agitated, swipes his meal trays off the table on to the floor. Oral intake is poor. He would be receiving IV fluids. Swallow study is being done per Dr. Velazquez. REVIEW OF SYSTEMS: Ambulation impaired. No CV, , pulmonary, eye, ENT system symptoms on review. Reliability poor. MENTAL STATUS EXAM: Oriented to himself. Insight, judgment, recent and remote memory, attention, concentration, fund of knowledge poor, consistent with his diagnosis mentioned in my initial note. LABORATORY DATA: Reviewed. IMPRESSION: Unchanged from my initial note. PLAN: BuSpar is currently 15 mg b.i.d. We will increase to 15 mg at 09:00 a.m., 10 mg noon, 15 mg at 05:00 p.m. Slept 6-1/2 hours. Valproic acid level is 88. Tegretol level 4.2. Reviewed drug interactions. Risk/benefit ratio favors no further change at this time. MAN Dominique CHANG MD DR: EDUARDA/camelia JOB#: [id number] / [id number]
--- NOTE | 2016-12-13 04:20 | PN ---
DATE: 12/12/2016 SUBJECTIVE: The patient is a 71-year-old male patient who was admitted from the [facility] at [place], [place] where he has been yelling, flipping people off, grabbing people, throwing things at people with increased anxiety, symptoms started about 3 weeks prior to admission, attempt to control had been done with Ativan being changed to Haldol, he was admitted on 12/03/2016 and has been apparently refusing to eat and drink. His lab work as showed that his serum sodium has consistently arising from 143-150. His BUN also has risen from 7-12 and creatinine remained stable. He was seen today by the speech therapist, who recommended to keep him n.p.o. and we did start him yesterday on D5W at 100 mL per hour and indeed his serum sodium came down from 150 to 144. OBJECTIVE: GENERAL: On examining him, he looked well and was clearly in no apparent respiratory distress, pale, but no jaundice, cyanosis, or thyromegaly. No jugular venous distention. No limb edema. VITAL SIGNS: His heart rate was 85, blood pressure 117/88, temperature was 97.7, respiratory rate was 18, and oxygen saturation was 97%. HEAD, EYES, EARS, NOSE AND THROAT: Showed normocephalic, atraumatic. NECK: Supple. HEART: Showed normal first and second heart sounds with no gallop, rub or murmur. CHEST: Clear to auscultation. No crepitation or rhonchi. ABDOMEN: Distended, soft, nontender. No guarding or rigidity. No organomegaly. All hernial orifices intact. Bowel sounds normal. NEUROLOGIC: He was demented, very uncooperative. LABORATORY WORK: This morning showed a serum sodium 144, potassium 3.5, chloride 106, bicarbonate 33, anion gap of 5, BUN 12, creatinine 0.9, estimated GFR was 83 mL per minute, his glucose 133. Calcium was 8.6. Total bilirubin, AST, ALT, alkaline phosphatase were normal. Total protein 6.5, albumin 2.7. His white cell count was 4400, hemoglobin 11, hematocrit 33, MCV 89, and platelet count of 206,000. IMPRESSION: He was apparently seen by the speech and language pathologist, who did a bedside swallow and the patient basically has minimally adequate alertness, awareness with evidence of aspiration on the patient's own secretions. He is high risk for aspiration ____ specific as the patient refused second ice chip without opening his eyes to examine ____. PLAN: To keep him n.p.o. and another speech therapist will be here tomorrow to evaluate, do a video swallowing evaluation. My plan is to change the IV fluid to D5 1000 mL plus 20 mEq of potassium chloride at a rate of 75. We will repeat all his lab work tomorrow and decide on further management accordingly. ALBERTO HAYES MD DR: CHARY/camelia JOB#: [id number] / [id number]
[2016-12-13] MEDS: POTASSIUM CL 20MEQ IN D5W 1,000 ML IV SCH ×2 (05:30→19:41)
[2016-12-13] MEDS: LEVOTHYROXINE 125 MCG TABLET PO SCH (06:00)
[2016-12-13 06:29] VITALS: BP 129/80
[2016-12-13] MEDS: carBAMazepine 200 MG TABLET PO SCH ×2 (07:00→18:00)
[2016-12-13 08:33] LABS: CALCIUM 8.4 mg/dL (8.5-10.1); CREATININE 0.8 mg/dL (0.7-1.3); POTASSIUM 3.7 mmol/L (3.5-5.1)
[2016-12-13] MEDS: traZODone 50 MG TABLET. PO SCH ×4 (09:00→18:00)
[2016-12-13] MEDS: chlorproMAZINE HCL 25 MG TABLET PO SCH ×3 (09:00→19:42)
[2016-12-13] MEDS: busPIRone 15 MG TABLET. PO SCH ×2 (09:00→17:00)
[2016-12-13] MEDS: DIVALPROEX 125 MG CAP.SPRINK PO SCH ×2 (09:00→19:41)
[2016-12-13] MEDS: HALOPERIDOL LACT 5 MG/ML VIAL. IM SCH (13:21)
[2016-12-13] MEDS: LORazepam 2 MG/ML VIAL IM SCH (13:21)
[2016-12-13] MEDS: FLUTICASONE 50MCG/NASAL SPRAY 16GM BOTTLE. NS SCH (13:21)
[2016-12-13 16:12] VITALS: BP 124/72
[2016-12-13] MEDS: ATORVASTATIN CALCIUM 20 MG TABLET PO SCH (19:41)
[2016-12-13] MEDS: TAMSULOSIN 0.4 MG CAP.ER.24H. PO SCH (19:41)
[2016-12-13] MEDS: MIRTAZAPINE 15 MG TABLET PO SCH (19:42)
--- NOTE | 2016-12-13 21:44 | PDOC ---
Exam Raghav Demential Exam: Raghav Note: Please also refer to the separate dictated note~for this date of service dictated separately.~Patient seen individually. Discussed the patient with Nursing staff reviewed the chart.~Reviewed interim history and current functioning. Reviewed vital signs,~Labs/ Radiology~and current medications noted below. Continue current treatment with the changes noted in the dictated addendum note Assessment: Vital Signs: Vital Signs Date Time Temp Pulse Resp B/P (MAP) Pulse Ox O2 Delivery O2 Flow Rate FiO2 12/13/16 16:12 97.0 87 20 124/72 (89) 97 Room Air I&O Intake and Output 12/14/16 07:00 Intake Total 1100 ml Balance 1100 ml Intake Oral 0 ml IV Total 1100 ml Labs: Laboratory Tests Test 12/13/16 07:42 Sodium Level 137 mmol/L (136-145) Potassium Level 3.7 mmol/L (3.5-5.1) Chloride Level 101 mmol/L (98-107) Carbon Dioxide Level 31 mmol/L (21-32) Anion Gap 5 (6-14) L Blood Urea Nitrogen 8 mg/dL (8-26) Creatinine 0.8 mg/dL (0.7-1.3) Estimated GFR (Cockcroft-Gault) 95.0 Glucose Level 96 mg/dL (70-99) Calcium Level 8.4 mg/dL (8.5-10.1) L Magnesium Level 1.6 mg/dL (1.8-2.4) L Current Medications: Meds: Current Medications Acetaminophen (Tylenol) 650 mg PRN Q6HRS PRN PO PAIN / TEMP; Start 12/03/16 at 00:45 Multi-Ingredient Ointment (Analgesic [place]) 1 ailyn PRN QID PRN TP MUSCLE PAIN; Start 12/03/16 at 00:45 Al Hydroxide/Mg Hydroxide (Mylanta Plus Xs) 15 ml PRN AFTMEALHC PRN PO DYSPEPSIA; Start 12/03/16 at 00:45 Magnesium Hydroxide (Milk Of Magnesia) 2,400 mg PRN QHS PRN PO CONSTIPATION; Start 12/03/16 at 00:45 Buspirone HCl (Buspar) 10 mg BID PO Last administered on 12/05/16t 08:23; Start 12/03/16 at 09:00; Stop 12/05/16 at 18:53; Status DC Carbamazepine (TEGretol) 200 mg HS PO Last administered on 12/03/16 19:45; Start 12/03/16 at 21:00; Stop 12/04/16 at 06:05; Status DC Haloperidol (Haldol) 2 mg PRN Q4HRS PRN PO AGITATION Last administered on 16:46; Start 12/03/16 at 01:15; Status Future Hold Haloperidol (Haldol) 2 mg TID PO Last administered on 12/05/16 19:20; Start 12/03/16 at 09:00; Status Future Hold Olanzapine (ZyPREXA) 10 mg DAILY PO Last administered on 12/12/16 12:01; Start 12/03/16 at 09:00; Stop 12/12/16 at 18:33; Status DC Chlorpromazine HCl (Thorazine) 150 mg TID PO Last administered on 12/11/16 20 :13; Start 12/03/16 at 09:00 Non-Formulary Medication 100 mg TID PO ; Start 12/03/16 at 09:00; Status UNV Valproic Acid (Depakene) 250 mg BID PO Last administered on 12/04/16 09:22; Start 12/03/16 at 09:00; Stop 12/04/16 at 11:16; Status DC Influenza Virus Vaccine Quadrival (Fluarix Quad [id number] Syringe) 0.5 ml ONCE ONCE VAX IM Last administered on 12/03/16 09:06; Start 12/03/16 at 09:00; Stop 12/03/16 at 09:02; Status DC Acetaminophen (Tylenol) 650 mg PRN Q6HRS PRN PO PAIN / TEMP; Start 12/03/16 at 07:00 Bisacodyl (Dulcolax Supp) 10 mg PRN DAILY PRN [place] CONSTIPATION; Start 12/03/16 at 07:00 Fluticasone Propionate (Flonase) 1 spray DAILY NS Last administered on 13:21; Start 12/03/16 at 09:00 Levothyroxine Sodium (Synthroid) 125 mcg DAILY06 PO Last administered on 06:05; Start 12/03/16 at 07:30 Polyethylene Glycol (miraLAX) 17 gm DAILY PO Last administered on 12/09/16 07 :43; Start 12/03/16 at 09:00; Stop 12/11/16 at 19:44; Status DC Tamsulosin HCl (Flomax) 0.4 mg HS PO Last administered on 12/11/16 20:12; Start 12/03/16 at 21:00 Trazodone HCl (Desyrel) 50 mg PRN QHS PRN PO INSOMNIA; Start 12/03/16 at 21:00 ; Stop 12/07/16 at 19:26; Status DC Mirtazapine (Remeron) 7.5 mg QHS PO Last administered on 12/05/16 19:20; Start 12/03/16 at 21:00; Stop 12/07/16 at 19:26; Status DC Carbamazepine (TEGretol) 200 mg BID76 PO Last administered on 12/12/16 06:05 ; Start 12/04/16 at 07:00 Vitamin D (Vitamin D3) 50,000 unit WEEKLY PO Last administered on 12/04/16 09: 23; Start 12/04/16 at 09:00 Atorvastatin Calcium (Lipitor) 20 mg QHS PO Last administered on 12/11/16 20: 12; Start 12/04/16 at 21:00 Valproic Acid (Depakene) 2,500 mg BID PO ; Start 12/04/16 at 21:00; Stop at 21:00; Status DC Valproic Acid (Depakene) 2,500 mg BID PO Last administered on 12/07/16 19:52; Start 12/04/16 at 21:00; Stop 12/08/16 at 13:41; Status DC Buspirone HCl (Buspar) 15 mg BID PO Last administered on 12/10/16 20:14; Start 12/05/16 at 21:00; Stop 12/11/16 at 11:23; Status DC Divalproex Sodium (Depakote Sprinkles) 2,500 mg 1X ONCE PO ; Start 12/06/16 at 10:00; Stop 12/06/16 at 10:01; Status DC Haloperidol Lactate (Haldol) 5 mg DAILY IM Last administered on 12/13/16 13: 21; Start 12/06/16 at 12:30 Lorazepam (Ativan) 0.5 mg DAILY IM Last administered on 12/13/16 13:21; Start 12/06/16 at 12:30 Mirtazapine (Remeron) 15 mg QHS PO Last administered on 12/11/16 20:12; Start 12/07/16 at 21:00 Trazodone HCl (Desyrel) 100 mg PRN QHS PRN PO INSOMNIA, MAY REPEAT X1 Last administered on 12/07/16 19:54; Start 12/07/16 at 19:30 Trazodone HCl (Desyrel) 12.5 mg BID@0900,1200 PO Last administered on 13:16; Start 12/08/16 at 09:00; Stop 12/09/16 at 16:24; Status DC Trazodone HCl (Desyrel) 12.5 mg BID@1500,1800 PO ; Start 12/08/16 at 15:00; Stop 12/09/16 at 16:24; Status DC Divalproex Sodium (Depakote Sprinkles) 2,000 mg BID PO ; Start 12/08/16 at 09:00 ; Stop 12/08/16 at 14:40; Status DC Divalproex Sodium (Depakote Sprinkles) 2,000 mg BID PO Last administered on 12:02; Start 12/09/16 at 09:00 Trazodone HCl (Desyrel) 25 mg BID@1500,1800 PO Last administered on 12/11/16 17:35; Start 12/09/16 at 18:00 Trazodone HCl (Desyrel) 25 mg BID@0900,1200 PO Last administered on 12/10/16 13:39; Start 12/10/16 at 09:00 Buspirone HCl (Buspar) 15 mg BID@0900,1700 PO Last administered on 12/12/16 12:01; Start 12/11/16 at 17:00 Buspirone HCl (Buspar) 10 mg PRN DAILY@1200 PRN PO ANXIETY; Start 12/11/16 at 11:30 Dextrose 1,000 ml @ 75 mls/hr [id number] IV Last administered on 12/12/16 15:03 ; Start 12/11/16 at 17:15; Stop 12/12/16 at 16:17; Status DC Bisacodyl (Dulcolax Supp) 10 mg PRN DAILY PRN [place] CONSTIPATION Last administered on 12/11/16 20:56; Start 12/11/16 at 19:45; Stop 12/12/16 at 15 :03; Status DC Sodium Biphosphate/ Sodium Phosphate (Fleet Adult) 133 ml PRN DAILY PRN [place] CONSTIPATION Last administered on 12/12/16 06:05; Start 12/12/16 at 06:00 Potassium Chloride/Dextrose 1,000 ml @ 75 mls/hr [id number] IV Last administered on 12/13/16 19:41; Start 12/12/16 at 17:00 Olanzapine (ZyPREXA ZYDIS) 2.5 mg PRN Q2HR PRN PO PSYCHOSIS Last administered on 12/13/16 19:43; Start 12/13/16 at 19:00 Active Scripts Active Reported Aspirin 81 Mg Tab.chew 81 Mg PO DAILY Abilify (Aripiprazole) 5 Mg Tablet 5 Mg PO DAILY Olanzapine 10 Mg Tablet 10 Mg PO DAILY Haloperidol 2 Mg Tablet 2 Mg PO PRN Q4HRS PRN Haloperidol 2 Mg Tablet 2 Mg PO TID Chlorpromazine Hcl 100 Mg Tablet 100 Mg PO TID Chlorpromazine Hcl 50 Mg Tablet 50 Mg PO TID Acetaminophen 650 Mg/20.3 Ml Solution 650 Mg PO Q6HRS PRN Buspirone Hcl 10 Mg Tablet 10 Mg PO BID Depakene (Valproate Sodium) 250 Mg/5 Ml Solution 2,500 Mg PO BID Tamsulosin Hcl 0.4 Mg Cap.er.24h 0.4 Mg PO HS Miralax (Polyethylene Glycol 3350) 17 Gm Powd.pack 17 Gm PO DAILY Levothyroxine Sodium 125 Mcg Tablet 125 Mcg PO DAILYAC Carbamazepine 200 Mg Tablet 200 Mg PO HS Bisacodyl 10 Mg Supp.rect 10 Mg RC PRN DAILY PRN Fluticasone Propionate Nasal [place] (Fluticasone Propionate) 16 Gm [place].susp 1 Spr NS DAILY Diagnosis: Problems: (1) Altered mental state (2) Intellectual delay (3) Dementia with behavioral disturbance (4) Anxiety disorder (5) Impulse control disorder (6) Dementia in Alzheimer's disease with delusions (7) Dementia in Alzheimer's disease with depression (8) Bipolar affective, mixed RAVINDRA CHANG MD Dec 13, 2016 21:43
--- NOTE | 2016-12-14 01:01 | PN ---
DATE: 12/12/2016 This late entry 12/12/2016 covers elements not covered in my initial note of 12/12/2016. SUBJECTIVE: I met with the patient evening of 12/12/2016. The patient was in bed till noon, remains n.p.o., drowsy all day, remains on IV fluids, D5W per Dr. Velazquez. He is agitated, throws his tray off at mealtimes on to the floor. REVIEW OF SYSTEMS: Ambulation impaired, in a Broda chair. No CV, , pulmonary, eye, ENT system symptoms on review. Reliability poor. MENTAL STATUS EXAM: Oriented to himself. Insight, judgment, recent and remote memory, attention, concentration, fund of knowledge poor, consistent with his diagnosis mentioned in my initial note. LABORATORY DATA: Reviewed. IMPRESSION: Unchanged from initial note. PLAN: Discontinue the scheduled Zyprexa 10 mg daily. He remains on IM Haldol, Ativan, n.p.o. for all other medications till the swallow study is unremarkable. He may have to consider hospice care. I have reviewed drug interactions, risk/benefit ratio favors no further change. MAN Dominique CHANG MD DR: EDUARDA/camelia JOB#: [id number] / [id number]
[2016-12-14] MEDS: LEVOTHYROXINE 125 MCG TABLET PO SCH (05:20)
[2016-12-14] MEDS: carBAMazepine 200 MG TABLET PO SCH ×2 (05:27→12:16)
[2016-12-14 06:15] VITALS: BP 115/67
[2016-12-14] MEDS: traZODone 50 MG TABLET. PO SCH ×4 (07:41→12:16)
[2016-12-14] MEDS: busPIRone 15 MG TABLET. PO SCH ×2 (07:41→12:16)
[2016-12-14] MEDS: DIVALPROEX 125 MG CAP.SPRINK PO SCH ×2 (07:41→19:21)
[2016-12-14] MEDS: chlorproMAZINE HCL 25 MG TABLET PO SCH ×3 (07:42→19:22)
[2016-12-14] MEDS: HALOPERIDOL LACT 5 MG/ML VIAL. IM SCH (08:43)
[2016-12-14] MEDS: FLUTICASONE 50MCG/NASAL SPRAY 16GM BOTTLE. NS SCH (08:49)
--- NOTE | 2016-12-14 09:42 | PN ---
DATE: 12/14/2016 PSYCHIATRIC PROGRESS NOTE This is a late entry for 12/13/2016 covers elements not covered in my initial of 12/13/2016. Met with the patient evening of 12/13/2016. The patient failed to swallow study, remains n.p.o., but very agitated, aggressive, disruptive, throwing his food tray on the floor as before. We will add Zyprexa Zydis sublingual to help with his mood lability. He remains on one-on-one status. REVIEW OF SYSTEMS: Ambulation impaired. No CV, , pulmonary, eye, ENT system symptoms on review. Reliability poor. MENTAL STATUS EXAM: Oriented to himself. Insight, judgment, recent and remote memory, attention, concentration, fund of knowledge poor, consistent with his diagnosis mentioned in my initial note. PLAN: Continue current psychotropics. Use Zyprexa sublingual p.r.n. Reviewed drug interactions risk/benefit ratio, favors no further change. RAVINDRA CHANG MD DR: EDUARDA/camelia JOB#: [id number] / [id number]
[2016-12-14] MEDS: LORazepam 2 MG/ML VIAL IM SCH (09:56)
[2016-12-14] MEDS: POTASSIUM CL 20MEQ IN D5W 1,000 ML IV SCH (12:13)
[2016-12-14 16:15] VITALS: BP 122/64
[2016-12-14] MEDS: MIRTAZAPINE 15 MG TABLET PO SCH (19:22)
[2016-12-14] MEDS: ATORVASTATIN CALCIUM 20 MG TABLET PO SCH (19:22)
[2016-12-14] MEDS: TAMSULOSIN 0.4 MG CAP.ER.24H. PO SCH (19:22)
--- NOTE | 2016-12-14 20:49 | PDOC ---
Exam Raghav Demential Exam: Raghav Note: Please also refer to the separate dictated note~for this date of service dictated separately.~Patient seen individually. Discussed the patient with Nursing staff reviewed the chart.~Reviewed interim history and current functioning. Reviewed vital signs,~Labs/ Radiology~and current medications noted below. Continue current treatment with the changes noted in the dictated addendum note Assessment: Vital Signs: Vital Signs Date Time Temp Pulse Resp B/P (MAP) Pulse Ox O2 Delivery O2 Flow Rate FiO2 12/14/16 16:15 98.0 102 20 122/64 (83) 93 Room Air I&O Intake and Output 12/15/16 07:00 Intake Total 0 ml Balance 0 ml Intake Oral 0 ml Current Medications: Meds: Current Medications Acetaminophen (Tylenol) 650 mg PRN Q6HRS PRN PO PAIN / TEMP; Start 12/03/16 at 00:45 Multi-Ingredient Ointment (Analgesic [place]) 1 ailyn PRN QID PRN TP MUSCLE PAIN; Start 12/03/16 at 00:45 Al Hydroxide/Mg Hydroxide (Mylanta Plus Xs) 15 ml PRN AFTMEALHC PRN PO DYSPEPSIA; Start 12/03/16 at 00:45 Magnesium Hydroxide (Milk Of Magnesia) 2,400 mg PRN QHS PRN PO CONSTIPATION; Start 12/03/16 at 00:45 Buspirone HCl (Buspar) 10 mg BID PO Last administered on 12/05/16 08:23; Start 12/03/16 at 09:00; Stop 12/05/16 at 18:53; Status DC Carbamazepine (TEGretol) 200 mg HS PO Last administered on 12/03/16 19:45; Start 12/03/16 at 21:00; Stop 12/04/16 at 06:05; Status DC Haloperidol (Haldol) 2 mg PRN Q4HRS PRN PO AGITATION Last administered on 16:46; Start 12/03/16 at 01:15; Status Future Hold Haloperidol (Haldol) 2 mg TID PO Last administered on 12/05/16 19:20; Start 12/03/16 at 09:00; Status Future Hold Olanzapine (ZyPREXA) 10 mg DAILY PO Last administered on 12/12/16 12:01; Start 12/03/16 at 09:00; Stop 12/12/16 at 18:33; Status DC Chlorpromazine HCl (Thorazine) 150 mg TID PO Last administered on 12/11/16 20 :13; Start 12/03/16 at 09:00 Non-Formulary Medication 100 mg TID PO ; Start 12/03/16 at 09:00; Status UNV Valproic Acid (Depakene) 250 mg BID PO Last administered on 12/04/16 09:22; Start 12/03/16 at 09:00; Stop 12/04/16 at 11:16; Status DC Influenza Virus Vaccine Quadrival (Fluarix Quad [id number] Syringe) 0.5 ml ONCE ONCE VAX IM Last administered on 12/03/16 09:06; Start 12/03/16 at 09:00; Stop 12/03/16 at 09:02; Status DC Acetaminophen (Tylenol) 650 mg PRN Q6HRS PRN PO PAIN / TEMP; Start 12/03/16 at 07:00 Bisacodyl (Dulcolax Supp) 10 mg PRN DAILY PRN RC CONSTIPATION; Start 12/03/16 at 07:00 Fluticasone Propionate (Flonase) 1 spray DAILY NS Last administered on 13:21; Start 12/03/16 at 09:00 Levothyroxine Sodium (Synthroid) 125 mcg DAILY06 PO Last administered on 06:05; Start 12/03/16 at 07:30 Polyethylene Glycol (miraLAX) 17 gm DAILY PO Last administered on 12/09/16 07 :43; Start 12/03/16 at 09:00; Stop 12/11/16 at 19:44; Status DC Tamsulosin HCl (Flomax) 0.4 mg HS PO Last administered on 12/11/16 20:12; Start 12/03/16 at 21:00 Trazodone HCl (Desyrel) 50 mg PRN QHS PRN PO INSOMNIA; Start 12/03/16 at 21:00 ; Stop 12/07/16 at 19:26; Status DC Mirtazapine (Remeron) 7.5 mg QHS PO Last administered on 12/05/16 19:20; Start 12/03/16 at 21:00; Stop 12/07/16 at 19:26; Status DC Carbamazepine (TEGretol) 200 mg BID76 PO Last administered on 12/12/16 06:05 ; Start 12/04/16 at 07:00 Vitamin D (Vitamin D3) 50,000 unit WEEKLY PO Last administered on 12/04/16 09: 23; Start 12/04/16 at 09:00 Atorvastatin Calcium (Lipitor) 20 mg QHS PO Last administered on 12/11/16 20: 12; Start 12/04/16 at 21:00 Valproic Acid (Depakene) 2,500 mg BID PO ; Start 12/04/16 at 21:00; Stop at 21:00; Status DC Valproic Acid (Depakene) 2,500 mg BID PO Last administered on 12/07/16 19:52; Start 12/04/16 at 21:00; Stop 12/08/16 at 13:41; Status DC Buspirone HCl (Buspar) 15 mg BID PO Last administered on 12/10/16 20:14; Start 12/05/16 at 21:00; Stop 12/11/16 at 11:23; Status DC Divalproex Sodium (Depakote Sprinkles) 2,500 mg 1X ONCE PO ; Start 12/06/16 at 10:00; Stop 12/06/16 at 10:01; Status DC Haloperidol Lactate (Haldol) 5 mg DAILY IM Last administered on 12/14/16 08: 43; Start 12/06/16 at 12:30 Lorazepam (Ativan) 0.5 mg DAILY IM Last administered on 12/14/16 09:56; Start 12/06/16 at 12:30 Mirtazapine (Remeron) 15 mg QHS PO Last administered on 12/11/16 20:12; Start 12/07/16 at 21:00 Trazodone HCl (Desyrel) 100 mg PRN QHS PRN PO INSOMNIA, MAY REPEAT X1 Last administered on 12/07/16 19:54; Start 12/07/16 at 19:30 Trazodone HCl (Desyrel) 12.5 mg BID@0900,1200 PO Last administered on 13:16; Start 12/08/16 at 09:00; Stop 12/09/16 at 16:24; Status DC Trazodone HCl (Desyrel) 12.5 mg BID@1500,1800 PO ; Start 12/08/16 at 15:00; Stop 12/09/16 at 16:24; Status DC Divalproex Sodium (Depakote Sprinkles) 2,000 mg BID PO ; Start 12/08/16 at 09:00 ; Stop 12/08/16 at 14:40; Status DC Divalproex Sodium (Depakote Sprinkles) 2,000 mg BID PO Last administered on 12:02; Start 12/09/16 at 09:00 Trazodone HCl (Desyrel) 25 mg BID@1500,1800 PO Last administered on 12/11/16 17:35; Start 12/09/16 at 18:00 Trazodone HCl (Desyrel) 25 mg BID@0900,1200 PO Last administered on 12/10/16 13:39; Start 12/10/16 at 09:00 Buspirone HCl (Buspar) 15 mg BID@0900,1700 PO Last administered on 12/12/16 12:01; Start 12/11/16 at 17:00 Buspirone HCl (Buspar) 10 mg PRN DAILY@1200 PRN PO ANXIETY; Start 12/11/16 at 11:30 Dextrose 1,000 ml @ 75 mls/hr [id number] IV Last administered on 12/12/16 15:03 ; Start 12/11/16 at 17:15; Stop 12/12/16 at 16:17; Status DC Bisacodyl (Dulcolax Supp) 10 mg PRN DAILY PRN [place] CONSTIPATION Last administered on 12/11/16 20:56; Start 12/11/16 at 19:45; Stop 12/12/16 at 15 :03; Status DC Sodium Biphosphate/ Sodium Phosphate (Fleet Adult) 133 ml PRN DAILY PRN [place] CONSTIPATION Last administered on 12/12/16 06:05; Start 12/12/16 at 06:00 Potassium Chloride/Dextrose 1,000 ml @ 75 mls/hr [id number] IV Last administered on 12/14/16 12:13; Start 12/12/16 at 17:00 Olanzapine (ZyPREXA ZYDIS) 2.5 mg PRN Q2HR PRN PO PSYCHOSIS Last administered on 12/13/16t 23:18; Start 12/13/16 at 19:00 Active Scripts Active Reported Aspirin 81 Mg Tab.chew 81 Mg PO DAILY Abilify (Aripiprazole) 5 Mg Tablet 5 Mg PO DAILY Olanzapine 10 Mg Tablet 10 Mg PO DAILY Haloperidol 2 Mg Tablet 2 Mg PO PRN Q4HRS PRN Haloperidol 2 Mg Tablet 2 Mg PO TID Chlorpromazine Hcl 100 Mg Tablet 100 Mg PO TID Chlorpromazine Hcl 50 Mg Tablet 50 Mg PO TID Acetaminophen 650 Mg/20.3 Ml Solution 650 Mg PO Q6HRS PRN Buspirone Hcl 10 Mg Tablet 10 Mg PO BID Depakene (Valproate Sodium) 250 Mg/5 Ml Solution 2,500 Mg PO BID Tamsulosin Hcl 0.4 Mg Cap.er.24h 0.4 Mg PO HS Miralax (Polyethylene Glycol 3350) 17 Gm Powd.pack 17 Gm PO DAILY Levothyroxine Sodium 125 Mcg Tablet 125 Mcg PO DAILYAC Carbamazepine 200 Mg Tablet 200 Mg PO HS Bisacodyl 10 Mg Supp.rect 10 Mg RC PRN DAILY PRN Fluticasone Propionate Nasal [employer] (Fluticasone Propionate) 16 Gm [employer] [place].susp 1 Spr NS DAILY Diagnosis: Problems: (1) Altered mental state (2) Intellectual delay (3) Dementia with behavioral disturbance (4) Anxiety disorder (5) Impulse control disorder (6) Dementia in Alzheimer's disease with delusions (7) Dementia in Alzheimer's disease with depression (8) Bipolar affective, mixed RAVINDRA CHANG MD Dec 14, 2016 20:49
[2016-12-14] MEDS: MIRTAZAPINE 15 MG TAB.RAPDIS PO SCH (22:55)
[2016-12-15] MEDS: POTASSIUM CL 20MEQ IN D5W 1,000 ML IV SCH ×2 (01:05→11:40)
[2016-12-15] MEDS: carBAMazepine 200 MG TABLET PO SCH ×2 (05:39→17:36)
[2016-12-15] MEDS: LEVOTHYROXINE 125 MCG TABLET PO SCH (05:39)
[2016-12-15 07:22] VITALS: BP 110/72
[2016-12-15] MEDS: busPIRone 15 MG TABLET. PO SCH ×2 (09:00→17:36)
[2016-12-15] MEDS: DIVALPROEX 125 MG CAP.SPRINK PO SCH ×2 (09:00→19:23)
[2016-12-15] MEDS: HALOPERIDOL LACT 5 MG/ML VIAL. IM SCH (09:00)
[2016-12-15] MEDS: chlorproMAZINE HCL 25 MG TABLET PO SCH ×3 (09:00→19:24)
[2016-12-15] MEDS: FLUTICASONE 50MCG/NASAL SPRAY 16GM BOTTLE. NS SCH (09:00)
[2016-12-15] MEDS: LORazepam 2 MG/ML VIAL IM SCH (09:00)
[2016-12-15] MEDS: traZODone 50 MG TABLET. PO SCH ×4 (09:00→17:35)
[2016-12-15] MEDS ORDERED: MAGNESIUM SULFATE 2GM 50 ML IV ONE (12:45)
[2016-12-15 13:30] LABS: BASO % 0 % (0-3); EOS # 0.1 x10^3/uL (0.0-0.7); EOS % 1 % (0-3); HEMATOCRIT 32.9 % (39.0-53.0); HEMOGLOBIN 11.1 g/dL (13.0-17.5); LYMPH # 0.8 x10^3/uL (1.0-4.8); LYMPH % 10 % (24-48); MEAN CORPUSCULAR HEMOGLOBIN 30 pg (25-35); MEAN CORPUSCULAR HGB CONC 34 g/dL (31-37); MEAN CORPUSCULAR VOLUME 89 fL (79-100); MONO # 1.1 x10^3/uL (0.0-1.1); MONO % 14 % (0-9); NEUT # 5.8 x10^3uL (1.8-7.7); NEUT % 74 % (31-73); PLATELET COUNT 229 x10^3/uL (140-400); RED CELL DISTRIBUTION WIDTH 18.4 % (11.5-14.5); WHITE BLOOD COUNT 7.8 x10^3/uL (4.0-11.0)
[2016-12-15 13:39] LABS: ALBUMIN 2.3 g/dL (3.4-5.0); ALBUMIN/GLOBULIN RATIO 0.6 (1.0-1.7); CALCIUM 8.2 mg/dL (8.5-10.1); CREATININE 0.9 mg/dL (0.7-1.3); GFR 82.9; POTASSIUM 3.8 mmol/L (3.5-5.1); TOTAL BILIRUBIN 0.2 mg/dL (0.2-1.0); TOTAL PROTEIN 6.2 g/dL (6.4-8.2)
[2016-12-15 13:55] LABS: % LYMPHS 7 % (24-48); % MONOS 19 % (0-10); % SEGS 73 % (35-66)
[2016-12-15 13:56] LABS: PLT ESTIMATE ADEQUATE (ADEQUATE)
[2016-12-15 13:57] LABS: POLYCHROMASIA SLIGHT
[2016-12-15 13:58] LABS: ANISOCYTOSIS SLIGHT
[2016-12-15 13:59] LABS: OVALOCYTES OCC
[2016-12-15 14:00] LABS: TOXIC GRANULATION SLIGHT
[2016-12-15 17:16] VITALS: BP 114/75
[2016-12-15] MEDS: MIRTAZAPINE 15 MG TAB.RAPDIS PO SCH (19:23)
[2016-12-15] MEDS: MIRTAZAPINE 15 MG TABLET PO SCH (19:23)
[2016-12-15] MEDS: ATORVASTATIN CALCIUM 20 MG TABLET PO SCH (19:23)
[2016-12-15] MEDS: TAMSULOSIN 0.4 MG CAP.ER.24H. PO SCH (19:23)
--- NOTE | 2016-12-15 21:26 | PDOC ---
Exam Raghav Demential Exam: Raghav Note: Please also refer to the separate dictated note~for this date of service dictated separately.~Patient seen individually. Discussed the patient with Nursing staff reviewed the chart.~Reviewed interim history and current functioning. Reviewed vital signs,~Labs/ Radiology~and current medications noted below. Continue current treatment with the changes noted in the dictated addendum note Assessment: Vital Signs: Vital Signs Date Time Temp Pulse Resp B/P (MAP) Pulse Ox O2 Delivery O2 Flow Rate FiO2 12/15/16 17:16 97.8 93 18 114/75 (88) 94 12/14/16 16:15 Room Air I&O Intake and Output 12/16/16 07:00 Intake Total 0 ml Balance 0 ml Intake Oral 0 ml Labs: Laboratory Tests Test 12/15/16 13:12 White Blood Count 7.8 x10^3/uL (4.0-11.0) # Red Blood Count 3.70 x10^6/uL (4.30-5.70) L Hemoglobin 11.1 g/dL (13.0-17.5) L Hematocrit 32.9 % (39.0-53.0) L Mean Corpuscular Volume 89 fL (79-100) Mean Corpuscular Hemoglobin 30 pg (25-35) Mean Corpuscular Hemoglobin Concent 34 g/dL (31-37) Red Cell Distribution Width 18.4 % (11.5-14.5) H Platelet Count 229 x10^3/uL (140-400) Neutrophils (%) (Auto) 74 % (31-73) H Lymphocytes (%) (Auto) 10 % (24-48) L Monocytes (%) (Auto) 14 % (0-9) H Eosinophils (%) (Auto) 1 % (0-3) Basophils (%) (Auto) 0 % (0-3) Neutrophils # (Auto) 5.8 x10^3uL (1.8-7.7) Lymphocytes # (Auto) 0.8 x10^3/uL (1.0-4.8) L Monocytes # (Auto) 1.1 x10^3/uL (0.0-1.1) Eosinophils # (Auto) 0.1 x10^3/uL (0.0-0.7) Basophils # (Auto) 0.0 x10^3/uL (0.0-0.2) Segmented Neutrophils % 73 % (35-66) H Lymphocytes % 7 % (24-48) L Monocytes % 19 % (0-10) H Toxic Granulation Slight Dohle Bodies Few Platelet Estimate Adequate (ADEQUATE) Large Platelets Occ Polychromasia Slight Anisocytosis Slight Ovalocytes Occ Sodium Level 137 mmol/L (136-145) Potassium Level 3.8 mmol/L (3.5-5.1) Chloride Level 102 mmol/L (98-107) Carbon Dioxide Level 32 mmol/L (21-32) Anion Gap 3 (6-14) L Blood Urea Nitrogen 9 mg/dL (8-26) Creatinine 0.9 mg/dL (0.7-1.3) Estimated GFR (Cockcroft-Gault) 82.9 BUN/Creatinine Ratio 10 (6-20) Glucose Level 112 mg/dL (70-99) H Calcium Level 8.2 mg/dL (8.5-10.1) L Total Bilirubin 0.2 mg/dL (0.2-1.0) Aspartate Amino Transferase (AST) 19 U/L (15-37) Alanine Aminotransferase (ALT) 13 U/L (16-63) L Alkaline Phosphatase 47 U/L (46-116) Total Protein 6.2 g/dL (6.4-8.2) L Albumin 2.3 g/dL (3.4-5.0) L Albumin/Globulin Ratio 0.6 (1.0-1.7) L Current Medications: Meds: Current Medications Acetaminophen (Tylenol) 650 mg PRN Q6HRS PRN PO PAIN / TEMP; Start 12/03/16 at 00:45 Multi-Ingredient Ointment (Analgesic [place]) 1 ailyn PRN QID PRN TP MUSCLE PAIN; Start 12/03/16 at 00:45 Al Hydroxide/Mg Hydroxide (Mylanta Plus Xs) 15 ml PRN AFTMEALHC PRN PO DYSPEPSIA; Start 12/03/16 at 00:45 Magnesium Hydroxide (Milk Of Magnesia) 2,400 mg PRN QHS PRN PO CONSTIPATION; Start 12/03/16 at 00:45 Buspirone HCl (Buspar) 10 mg BID PO Last administered on 12/05/16t 08:23; Start 12/03/16 at 09:00; Stop 12/05/16 at 18:53; Status DC Carbamazepine (TEGretol) 200 mg HS PO Last administered on 12/03/16 19:45; Start 12/03/16 at 21:00; Stop 12/04/16 at 06:05; Status DC Haloperidol (Haldol) 2 mg PRN Q4HRS PRN PO AGITATION Last administered on 16:46; Start 12/03/16 at 01:15; Status Future Hold Haloperidol (Haldol) 2 mg TID PO Last administered on 12/05/16 19:20; Start 12/03/16 at 09:00; Status Future Hold Olanzapine (ZyPREXA) 10 mg DAILY PO Last administered on 12/12/16 12:01; Start 12/03/16 at 09:00; Stop 12/12/16 at 18:33; Status DC Chlorpromazine HCl (Thorazine) 150 mg TID PO Last administered on 12/15/16 19 :24; Start 12/03/16 at 09:00 Non-Formulary Medication 100 mg TID PO ; Start 12/03/16 at 09:00; Status UNV Valproic Acid (Depakene) 250 mg BID PO Last administered on 12/04/16 09:22; Start 12/03/16 at 09:00; Stop 12/04/16 at 11:16; Status DC Influenza Virus Vaccine Quadrival (Fluarix Quad [id number] Syringe) 0.5 ml ONCE ONCE VAX IM Last administered on 12/03/16 09:06; Start 12/03/16 at 09:00; Stop 12/03/16 at 09:02; Status DC Acetaminophen (Tylenol) 650 mg PRN Q6HRS PRN PO PAIN / TEMP; Start 12/03/16 at 07:00 Bisacodyl (Dulcolax Supp) 10 mg PRN DAILY PRN [place] CONSTIPATION; Start 12/03/16 at 07:00 Fluticasone Propionate (Flonase) 1 spray DAILY NS Last administered on 13:21; Start 12/03/16 at 09:00 Levothyroxine Sodium (Synthroid) 125 mcg DAILY06 PO Last administered on 06:05; Start 12/03/16 at 07:30 Polyethylene Glycol (miraLAX) 17 gm DAILY PO Last administered on 12/09/16 07 :43; Start 12/03/16 at 09:00; Stop 12/11/16 at 19:44; Status DC Tamsulosin HCl (Flomax) 0.4 mg HS PO Last administered on 12/15/16 19:23; Start 12/03/16 at 21:00 Trazodone HCl (Desyrel) 50 mg PRN QHS PRN PO INSOMNIA; Start 12/03/16 at 21:00 ; Stop 12/07/16 at 19:26; Status DC Mirtazapine (Remeron) 7.5 mg QHS PO Last administered on 12/05/16 19:20; Start 12/03/16 at 21:00; Stop 12/07/16 at 19:26; Status DC Carbamazepine (TEGretol) 200 mg BID76 PO Last administered on 12/15/16 17:36 ; Start 12/04/16 at 07:00 Vitamin D (Vitamin D3) 50,000 unit WEEKLY PO Last administered on 12/04/16 09: 23; Start 12/04/16 at 09:00 Atorvastatin Calcium (Lipitor) 20 mg QHS PO Last administered on 12/15/16 19: 23; Start 12/04/16 at 21:00 Valproic Acid (Depakene) 2,500 mg BID PO ; Start 12/04/16 at 21:00; Stop at 21:00; Status DC Valproic Acid (Depakene) 2,500 mg BID PO Last administered on 12/07/16 19:52; Start 12/04/16 at 21:00; Stop 12/08/16 at 13:41; Status DC Buspirone HCl (Buspar) 15 mg BID PO Last administered on 12/10/16 20:14; Start 12/05/16 at 21:00; Stop 12/11/16 at 11:23; Status DC Divalproex Sodium (Depakote Sprinkles) 2,500 mg 1X ONCE PO ; Start 12/06/16 at 10:00; Stop 12/06/16 at 10:01; Status DC Haloperidol Lactate (Haldol) 5 mg DAILY IM Last administered on 12/15/16 09: 00; Start 12/06/16 at 12:30 Lorazepam (Ativan) 0.5 mg DAILY IM Last administered on 12/15/16 09:00; Start 12/06/16 at 12:30 Mirtazapine (Remeron) 15 mg QHS PO Last administered on 12/15/16 19:23; Start 12/07/16 at 21:00 Trazodone HCl (Desyrel) 100 mg PRN QHS PRN PO INSOMNIA, MAY REPEAT X1 Last administered on 12/07/16 19:54; Start 12/07/16 at 19:30 Trazodone HCl (Desyrel) 12.5 mg BID@0900,1200 PO Last administered on 13:16; Start 12/08/16 at 09:00; Stop 12/09/16 at 16:24; Status DC Trazodone HCl (Desyrel) 12.5 mg BID@1500,1800 PO ; Start 12/08/16 at 15:00; Stop 12/09/16 at 16:24; Status DC Divalproex Sodium (Depakote Sprinkles) 2,000 mg BID PO ; Start 12/08/16 at 09:00 ; Stop 12/08/16 at 14:40; Status DC Divalproex Sodium (Depakote Sprinkles) 2,000 mg BID PO Last administered on 19:23; Start 12/09/16 at 09:00 Trazodone HCl (Desyrel) 25 mg BID@1500,1800 PO Last administered on 12/11/16 17:35; Start 12/09/16 at 18:00; Stop 12/15/16 at 19:11; Status DC Trazodone HCl (Desyrel) 25 mg BID@0900,1200 PO Last administered on 12/10/16 13:39; Start 12/10/16 at 09:00; Stop 12/15/16 at 19:11; Status DC Buspirone HCl (Buspar) 15 mg BID@0900,1700 PO Last administered on 12/15/16 17:36; Start 12/11/16 at 17:00 Buspirone HCl (Buspar) 10 mg PRN DAILY@1200 PRN PO ANXIETY; Start 12/11/16 at 11:30 Dextrose 1,000 ml @ 75 mls/hr [id number] IV Last administered on 12/12/16 15:03 ; Start 12/11/16 at 17:15; Stop 12/12/16 at 16:17; Status DC Bisacodyl (Dulcolax Supp) 10 mg PRN DAILY PRN [place] CONSTIPATION Last administered on 12/11/16 20:56; Start 12/11/16 at 19:45; Stop 12/12/16 at 15 :03; Status DC Sodium Biphosphate/ Sodium Phosphate (Fleet Adult) 133 ml PRN DAILY PRN [place] CONSTIPATION Last administered on 12/12/16 06:05; Start 12/12/16 at 06:00 Potassium Chloride/Dextrose 1,000 ml @ 75 mls/hr [id number] IV Last administered on 12/15/16 01:05; Start 12/12/16 at 17:00; Stop 12/15/16 at 16:40; Status DC Olanzapine (ZyPREXA ZYDIS) 2.5 mg PRN Q2HR PRN PO PSYCHOSIS Last administered on 12/15/16 05:41; Start 12/13/16 at 19:00 Mirtazapine (Remeron Maribel-Tab) 15 mg QHS PO Last administered on 12/15/16 19: 23; Start 12/14/16 at 23:00 Magnesium Sulfate 50 ml @ 25 mls/hr 1X ONCE IV Last administered on 14:20; Start 12/15/16 at 12:45; Stop 12/15/16 at 14:44; Status DC Active Scripts Active Reported Aspirin 81 Mg Tab.chew 81 Mg PO DAILY Abilify (Aripiprazole) 5 Mg Tablet 5 Mg PO DAILY Olanzapine 10 Mg Tablet 10 Mg PO DAILY Haloperidol 2 Mg Tablet 2 Mg PO PRN Q4HRS PRN Haloperidol 2 Mg Tablet 2 Mg PO TID Chlorpromazine Hcl 100 Mg Tablet 100 Mg PO TID Chlorpromazine Hcl 50 Mg Tablet 50 Mg PO TID Acetaminophen 650 Mg/20.3 Ml Solution 650 Mg PO Q6HRS PRN Buspirone Hcl 10 Mg Tablet 10 Mg PO BID Depakene (Valproate Sodium) 250 Mg/5 Ml Solution 2,500 Mg PO BID Tamsulosin Hcl 0.4 Mg Cap.er.24h 0.4 Mg PO HS Miralax (Polyethylene Glycol 3350) 17 Gm Powd.pack 17 Gm PO DAILY Levothyroxine Sodium 125 Mcg Tablet 125 Mcg PO DAILYAC Carbamazepine 200 Mg Tablet 200 Mg PO HS Bisacodyl 10 Mg Supp.rect 10 Mg RC PRN DAILY PRN Fluticasone Propionate Nasal [place] (Fluticasone Propionate) 16 Gm [place].susp 1 Spr NS DAILY Diagnosis: Problems: (1) Altered mental state (2) Intellectual delay (3) Dementia with behavioral disturbance (4) Anxiety disorder (5) Impulse control disorder (6) Dementia in Alzheimer's disease with delusions (7) Dementia in Alzheimer's disease with depression (8) Bipolar affective, mixed RAVINDRA CHANG MD Dec 15, 2016 21:26
--- NOTE | 2016-12-15 23:49 | PN ---
DATE: 12/14/2016 PSYCHIATRIC PROGRESS NOTE This late entry date of service 12/14/2016 cover the elements not covered in my initial note. SUBJECTIVE: I met with the patient in the evening of 12/14/2016. The patient has had a very difficult day once again. He has been ____ loud, disruptive, abrasive, aggressive, has had to be on one-on-one status. He remains n.p.o. and is on IV supplements, has been pulling less on the IV access line than before, but behaviors are very challenging for the nursing staff, repeatedly throwing things around him, nursing staff are having to collect this, hand him the toys back, which he throws again, which is a constant activity for him, loud screeching in his voice. REVIEW OF SYSTEMS: Ambulation impaired, in Broda chair. No CV, , pulmonary, eye, ENT system symptoms on review. Reliability poor. MENTAL STATUS EXAM: Oriented to himself. Insight, judgment, recent and remote memory, attention, concentration, fund of knowledge poor, consistent with his diagnosis mentioned in my initial note. After my rounds, the nursing staff had called me around midnight. The patient had not slept at all, loud screaming, yelling and we decided to start Remeron SolTab 15 mg at bedtime, which is sublingual. IMPRESSION: Unchanged from initial note. PLAN: Continue psychotropics mentioned in my initial note including the Remeron SolTab 15 mg at bedtime, oral meds have been held due to dysphagia, aspiration risk. Remains on IV fluids. Reviewed drug interactions. Risk/benefit ratio favors no further change. MAN Dominique CHANG MD DR: EDUARDA/camelia JOB#: [id number] / [id number]
[2016-12-16 06:16] VITALS: BP 99/65
[2016-12-16] MEDS: carBAMazepine 200 MG TABLET PO SCH (06:16)
[2016-12-16] MEDS: LEVOTHYROXINE 125 MCG TABLET PO SCH (06:16)
[2016-12-16] MEDS: FLUTICASONE 50MCG/NASAL SPRAY 16GM BOTTLE. NS SCH (09:00)
[2016-12-16] MEDS: DIVALPROEX 125 MG CAP.SPRINK PO SCH (13:52)
[2016-12-16] MEDS: busPIRone 15 MG TABLET. PO SCH ×2 (13:52→17:25)
[2016-12-16] MEDS: chlorproMAZINE HCL 25 MG TABLET PO SCH ×3 (13:53→19:37)
[2016-12-16] MEDS: HALOPERIDOL LACT 5 MG/ML VIAL. IM SCH (14:26)
[2016-12-16] MEDS: LORazepam 2 MG/ML VIAL IM SCH (14:28)
[2016-12-16 16:05] VITALS: BP 128/97
[2016-12-16] MEDS: TAMSULOSIN 0.4 MG CAP.ER.24H. PO SCH (19:37)
[2016-12-16] MEDS: ATORVASTATIN CALCIUM 20 MG TABLET PO SCH (19:37)
[2016-12-16] MEDS: MIRTAZAPINE 15 MG TABLET PO SCH (19:37)
[2016-12-16] MEDS: LITHIUM CARBONATE 300 MG TABLET PO SCH (19:37)
--- NOTE | 2016-12-16 20:22 | PDOC ---
Exam Raghav Demential Exam: Raghav Note: Please also refer to the separate dictated note~for this date of service dictated separately.~Patient seen individually. Discussed the patient with Nursing staff reviewed the chart.~Reviewed interim history and current functioning. Reviewed vital signs,~Labs/ Radiology~and current medications noted below. Continue current treatment with the changes noted in the dictated addendum note Assessment: Vital Signs: Vital Signs Date Time Temp Pulse Resp B/P (MAP) Pulse Ox O2 Delivery O2 Flow Rate FiO2 12/16/16 16:05 98.0 100 20 128/97 (107) 96 12/14/16 16:15 Room Air I&O Intake and Output 12/17/16 07:00 Intake Total 0 ml Balance 0 ml Intake Oral 0 ml Current Medications: Meds: Current Medications Acetaminophen (Tylenol) 650 mg PRN Q6HRS PRN PO PAIN / TEMP; Start 12/03/16 at 00:45 Multi-Ingredient Ointment (Analgesic [place]) 1 ailyn PRN QID PRN TP MUSCLE PAIN; Start 12/03/16 at 00:45 Al Hydroxide/Mg Hydroxide (Mylanta Plus Xs) 15 ml PRN AFTMEALHC PRN PO DYSPEPSIA; Start 12/03/16 at 00:45 Magnesium Hydroxide (Milk Of Magnesia) 2,400 mg PRN QHS PRN PO CONSTIPATION; Start 12/03/16 at 00:45 Buspirone HCl (Buspar) 10 mg BID PO Last administered on 12/05/16 08:23; Start 12/03/16 at 09:00; Stop 12/05/16 at 18:53; Status DC Carbamazepine (TEGretol) 200 mg HS PO Last administered on 12/03/16 19:45; Start 12/03/16 at 21:00; Stop 12/04/16 at 06:05; Status DC Haloperidol (Haldol) 2 mg PRN Q4HRS PRN PO AGITATION Last administered on 16:46; Start 12/03/16 at 01:15; Status Future Hold Haloperidol (Haldol) 2 mg TID PO Last administered on 12/05/16 19:20; Start 12/03/16 at 09:00; Status Future Hold Olanzapine (ZyPREXA) 10 mg DAILY PO Last administered on 12/12/16 12:01; Start 12/03/16 at 09:00; Stop 12/12/16 at 18:33; Status DC Chlorpromazine HCl (Thorazine) 150 mg TID PO Last administered on 12/16/16 19 :37; Start 12/03/16 at 09:00 Non-Formulary Medication 100 mg TID PO ; Start 12/03/16 at 09:00; Status UNV Valproic Acid (Depakene) 250 mg BID PO Last administered on 12/04/16 09:22; Start 12/03/16 at 09:00; Stop 12/04/16 at 11:16; Status DC Influenza Virus Vaccine Quadrival (Fluarix Quad [id number] Syringe) 0.5 ml ONCE ONCE VAX IM Last administered on 12/03/16 09:06; Start 12/03/16 at 09:00; Stop 12/03/16 at 09:02; Status DC Acetaminophen (Tylenol) 650 mg PRN Q6HRS PRN PO PAIN / TEMP; Start 12/03/16 at 07:00 Bisacodyl (Dulcolax Supp) 10 mg PRN DAILY PRN [place] CONSTIPATION; Start 12/03/16 at 07:00 Fluticasone Propionate (Flonase) 1 spray DAILY NS Last administered on 13:21; Start 12/03/16 at 09:00 Levothyroxine Sodium (Synthroid) 125 mcg DAILY06 PO Last administered on 06:16; Start 12/03/16 at 07:30 Polyethylene Glycol (miraLAX) 17 gm DAILY PO Last administered on 12/09/16 07 :43; Start 12/03/16 at 09:00; Stop 12/11/16 at 19:44; Status DC Tamsulosin HCl (Flomax) 0.4 mg HS PO Last administered on 12/16/16 19:37; Start 12/03/16 at 21:00 Trazodone HCl (Desyrel) 50 mg PRN QHS PRN PO INSOMNIA; Start 12/03/16 at 21:00 ; Stop 12/07/16 at 19:26; Status DC Mirtazapine (Remeron) 7.5 mg QHS PO Last administered on 12/05/16 19:20; Start 12/03/16 at 21:00; Stop 12/07/16 at 19:26; Status DC Carbamazepine (TEGretol) 200 mg BID76 PO Last administered on 12/16/16 06:16 ; Start 12/04/16 at 07:00; Stop 12/16/16 at 18:30; Status DC Vitamin D (Vitamin D3) 50,000 unit WEEKLY PO Last administered on 12/04/16 09: 23; Start 12/04/16 at 09:00 Atorvastatin Calcium (Lipitor) 20 mg QHS PO Last administered on 12/16/16 19: 37; Start 12/04/16 at 21:00 Valproic Acid (Depakene) 2,500 mg BID PO ; Start 12/04/16 at 21:00; Stop at 21:00; Status DC Valproic Acid (Depakene) 2,500 mg BID PO Last administered on 12/07/16 19:52; Start 12/04/16 at 21:00; Stop 12/08/16 at 13:41; Status DC Buspirone HCl (Buspar) 15 mg BID PO Last administered on 12/10/16 20:14; Start 12/05/16 at 21:00; Stop 12/11/16 at 11:23; Status DC Divalproex Sodium (Depakote Sprinkles) 2,500 mg 1X ONCE PO ; Start 12/06/16 at 10:00; Stop 12/06/16 at 10:01; Status DC Haloperidol Lactate (Haldol) 5 mg DAILY IM Last administered on 12/16/16 14: 26; Start 12/06/16 at 12:30 Lorazepam (Ativan) 0.5 mg DAILY IM Last administered on 12/16/16 14:28; Start 12/06/16 at 12:30 Mirtazapine (Remeron) 15 mg QHS PO Last administered on 12/16/16 19:37; Start 12/07/16 at 21:00 Trazodone HCl (Desyrel) 100 mg PRN QHS PRN PO INSOMNIA, MAY REPEAT X1 Last administered on 12/07/16 19:54; Start 12/07/16 at 19:30 Trazodone HCl (Desyrel) 12.5 mg BID@0900,1200 PO Last administered on 13:16; Start 12/08/16 at 09:00; Stop 12/09/16 at 16:24; Status DC Trazodone HCl (Desyrel) 12.5 mg BID@1500,1800 PO ; Start 12/08/16 at 15:00; Stop 12/09/16 at 16:24; Status DC Divalproex Sodium (Depakote Sprinkles) 2,000 mg BID PO ; Start 12/08/16 at 09:00 ; Stop 12/08/16 at 14:40; Status DC Divalproex Sodium (Depakote Sprinkles) 2,000 mg BID PO Last administered on 13:52; Start 12/09/16 at 09:00; Stop 12/16/16 at 18:30; Status DC Trazodone HCl (Desyrel) 25 mg BID@1500,1800 PO Last administered on 12/11/16 17:35; Start 12/09/16 at 18:00; Stop 12/15/16 at 19:11; Status DC Trazodone HCl (Desyrel) 25 mg BID@0900,1200 PO Last administered on 12/10/16 13:39; Start 12/10/16 at 09:00; Stop 12/15/16 at 19:11; Status DC Buspirone HCl (Buspar) 15 mg BID@0900,1700 PO Last administered on 12/16/16 17:25; Start 12/11/16 at 17:00 Buspirone HCl (Buspar) 10 mg PRN DAILY@1200 PRN PO ANXIETY; Start 12/11/16 at 11:30 Dextrose 1,000 ml @ 75 mls/hr [id number] IV Last administered on 12/12/16 15:03 ; Start 12/11/16 at 17:15; Stop 12/12/16 at 16:17; Status DC Bisacodyl (Dulcolax Supp) 10 mg PRN DAILY PRN [place] CONSTIPATION Last administered on 12/11/16 20:56; Start 12/11/16 at 19:45; Stop 12/12/16 at 15 :03; Status DC Sodium Biphosphate/ Sodium Phosphate (Fleet Adult) 133 ml PRN DAILY PRN [place] CONSTIPATION Last administered on 12/12/16 06:05; Start 12/12/16 at 06:00 Potassium Chloride/Dextrose 1,000 ml @ 75 mls/hr [id number] IV Last administered on 12/15/16 01:05; Start 12/12/16 at 17:00; Stop 12/15/16 at 16:40; Status DC Olanzapine (ZyPREXA ZYDIS) 2.5 mg PRN Q2HR PRN PO PSYCHOSIS Last administered on 12/15/16 05:41; Start 12/13/16 at 19:00 Mirtazapine (Remeron Maribel-Tab) 15 mg QHS PO Last administered on 12/15/16 19: 23; Start 12/14/16 at 23:00; Stop 12/16/16 at 19:34; Status DC Magnesium Sulfate 50 ml @ 25 mls/hr 1X ONCE IV Last administered on 14:20; Start 12/15/16 at 12:45; Stop 12/15/16 at 14:44; Status DC [place] Carbonate 300 mg HS PO Last administered on 12/16/16 19:37; Start at 21:00 Active Scripts Active Reported Aspirin 81 Mg Tab.chew 81 Mg PO DAILY Abilify (Aripiprazole) 5 Mg Tablet 5 Mg PO DAILY Olanzapine 10 Mg Tablet 10 Mg PO DAILY Haloperidol 2 Mg Tablet 2 Mg PO PRN Q4HRS PRN Haloperidol 2 Mg Tablet 2 Mg PO TID Chlorpromazine Hcl 100 Mg Tablet 100 Mg PO TID Chlorpromazine Hcl 50 Mg Tablet 50 Mg PO TID Acetaminophen 650 Mg/20.3 Ml Solution 650 Mg PO Q6HRS PRN Buspirone Hcl 10 Mg Tablet 10 Mg PO BID Depakene (Valproate Sodium) 250 Mg/5 Ml Solution 2,500 Mg PO BID Tamsulosin Hcl 0.4 Mg Cap.er.24h 0.4 Mg PO HS Miralax (Polyethylene Glycol 3350) 17 Gm Powd.pack 17 Gm PO DAILY Levothyroxine Sodium 125 Mcg Tablet 125 Mcg PO DAILYAC Carbamazepine 200 Mg Tablet 200 Mg PO HS Bisacodyl 10 Mg Supp.rect 10 Mg RC PRN DAILY PRN Fluticasone Propionate Nasal [place] (Fluticasone Propionate) 16 Gm [place].susp 1 Spr NS DAILY Diagnosis: Problems: (1) Altered mental state (2) Intellectual delay (3) Dementia with behavioral disturbance (4) Anxiety disorder (5) Impulse control disorder (6) Dementia in Alzheimer's disease with delusions (7) Dementia in Alzheimer's disease with depression (8) Bipolar affective, mixed RAVINDRA CHANG MD Dec 16, 2016 20:22
[2016-12-16] MEDS: traZODone 100 MG TABLET. PO PRN (21:01)
--- NOTE | 2016-12-17 03:09 | PN ---
DATE: 12/15/2016 This late entry 12/15/2016 covers elements not covered in my initial note of 12/15/2016. SUBJECTIVE: Met with the patient evening of 12/15/2016. The patient has done much better on 12/15/2016, has not been agitated, yelling, not throwing his tray off the table, still remains on one-on-one, slept 4 hours previous evening, has been started on p.o. intake gradually per Dr. Pacheco. He is alert, oriented x 2, take some of his medications in pudding. Received dosage of BuSpar in the morning, one of Thorazine as well. REVIEW OF SYSTEMS: Ambulation impaired. No CV, , pulmonary, eye, ENT system symptoms on review. Reliability poor. MENTAL STATUS EXAM: Oriented to himself. Insight, judgment, recent and remote memory, attention, concentration, fund of knowledge poor, consistent with his diagnosis mentioned in my initial note. LABORATORY DATA: Reviewed. IMPRESSION: Unchanged from initial note. PLAN: Continue current psychotropics. Reviewed drug interactions. Risk/benefit ratio favors no further change. We will go ahead and stop the scheduled trazodone. He remains on the IM Haldol, Ativan, but if he is more cooperative with oral intake, we will go ahead and stop this. Remains on one-on-one status for now. MAN Dominique CHANG MD DR: EDUARDA/camelia JOB#: [id number] / [id number]
[2016-12-17] MEDS: LEVOTHYROXINE 125 MCG TABLET PO SCH (05:46)
[2016-12-17 05:59] VITALS: BP 116/77
[2016-12-17] MEDS: busPIRone 15 MG TABLET. PO SCH ×2 (08:30→17:00)
[2016-12-17] MEDS: chlorproMAZINE HCL 25 MG TABLET PO SCH ×3 (08:30→20:15)
[2016-12-17] MEDS: FLUTICASONE 50MCG/NASAL SPRAY 16GM BOTTLE. NS SCH (09:00)
[2016-12-17] MEDS: LORazepam 2 MG/ML VIAL IM SCH (09:56)
[2016-12-17] MEDS: HALOPERIDOL LACT 5 MG/ML VIAL. IM SCH (09:56)
[2016-12-17] MEDS: LITHIUM CARBONATE 300 MG TABLET PO SCH (20:14)
[2016-12-17] MEDS: ATORVASTATIN CALCIUM 20 MG TABLET PO SCH (20:14)
[2016-12-17] MEDS: TAMSULOSIN 0.4 MG CAP.ER.24H. PO SCH (20:15)
[2016-12-17] MEDS: MIRTAZAPINE 15 MG TABLET PO SCH (20:15)
--- NOTE | 2016-12-17 20:51 | PDOC ---
Exam Raghav Demential Exam: Raghav Note: Please also refer to the separate dictated note~for this date of service dictated separately.~Patient seen individually. Discussed the patient with Nursing staff reviewed the chart.~Reviewed interim history and current functioning. Reviewed vital signs,~Labs/ Radiology~and current medications noted below. Continue current treatment with the changes noted in the dictated addendum note Assessment: Vital Signs: Vital Signs Date Time Temp Pulse Resp B/P (MAP) Pulse Ox O2 Delivery O2 Flow Rate FiO2 12/17/16 05:59 97.9 75 18 116/77 (90) 93 12/14/16 16:15 Room Air I&O Intake and Output 12/18/16 06:59 Intake Total 243 ml Balance 243 ml Intake Oral 243 ml Current Medications: Meds: Current Medications Acetaminophen (Tylenol) 650 mg PRN Q6HRS PRN PO PAIN / TEMP; Start 12/03/16 at 00:45 Multi-Ingredient Ointment (Analgesic [place]) 1 ailyn PRN QID PRN TP MUSCLE PAIN; Start 12/03/16 at 00:45 Al Hydroxide/Mg Hydroxide (Mylanta Plus Xs) 15 ml PRN AFTMEALHC PRN PO DYSPEPSIA; Start 12/03/16 at 00:45 Magnesium Hydroxide (Milk Of Magnesia) 2,400 mg PRN QHS PRN PO CONSTIPATION; Start 12/03/16 at 00:45 Buspirone HCl (Buspar) 10 mg BID PO Last administered on 12/05/16 08:23; Start 12/03/16 at 09:00; Stop 12/05/16 at 18:53; Status DC Carbamazepine (TEGretol) 200 mg HS PO Last administered on 12/03/16 19:45; Start 12/03/16 at 21:00; Stop 12/04/16 at 06:05; Status DC Haloperidol (Haldol) 2 mg PRN Q4HRS PRN PO AGITATION Last administered on 16:46; Start 12/03/16 at 01:15; Status Future Hold Haloperidol (Haldol) 2 mg TID PO Last administered on 12/05/16 19:20; Start 12/03/16 at 09:00; Status Future Hold Olanzapine (ZyPREXA) 10 mg DAILY PO Last administered on 12/12/16 12:01; Start 12/03/16 at 09:00; Stop 12/12/16 at 18:33; Status DC Chlorpromazine HCl (Thorazine) 150 mg TID PO Last administered on 12/17/16 20 :15; Start 12/03/16 at 09:00 Non-Formulary Medication 100 mg TID PO ; Start 12/03/16 at 09:00; Status UNV Valproic Acid (Depakene) 250 mg BID PO Last administered on 12/04/16 09:22; Start 12/03/16 at 09:00; Stop 12/04/16 at 11:16; Status DC Influenza Virus Vaccine Quadrival (Fluarix Quad 2358-7979 Syringe) 0.5 ml ONCE ONCE VAX IM Last administered on 12/03/16 09:06; Start 12/03/16 at 09:00; Stop 12/03/16 at 09:02; Status DC Acetaminophen (Tylenol) 650 mg PRN Q6HRS PRN PO PAIN / TEMP; Start 12/03/16 at 07:00 Bisacodyl (Dulcolax Supp) 10 mg PRN DAILY PRN [place] CONSTIPATION; Start 12/03/16 at 07:00 Fluticasone Propionate (Flonase) 1 spray DAILY NS Last administered on 13:21; Start 12/03/16 at 09:00 Levothyroxine Sodium (Synthroid) 125 mcg DAILY06 PO Last administered on 05:46; Start 12/03/16 at 07:30 Polyethylene Glycol (miraLAX) 17 gm DAILY PO Last administered on 12/09/16 07 :43; Start 12/03/16 at 09:00; Stop 12/11/16 at 19:44; Status DC Tamsulosin HCl (Flomax) 0.4 mg HS PO Last administered on 12/17/16 20:15; Start 12/03/16 at 21:00 Trazodone HCl (Desyrel) 50 mg PRN QHS PRN PO INSOMNIA; Start 12/03/16 at 21:00 ; Stop 12/07/16 at 19:26; Status DC Mirtazapine (Remeron) 7.5 mg QHS PO Last administered on 12/05/16 19:20; Start 12/03/16 at 21:00; Stop 12/07/16 at 19:26; Status DC Carbamazepine (TEGretol) 200 mg BID76 PO Last administered on 12/16/16 06:16 ; Start 12/04/16 at 07:00; Stop 12/16/16 at 18:30; Status DC Vitamin D (Vitamin D3) 50,000 unit WEEKLY PO Last administered on 12/04/16 09: 23; Start 12/04/16 at 09:00 Atorvastatin Calcium (Lipitor) 20 mg QHS PO Last administered on 12/17/16 20: 14; Start 12/04/16 at 21:00 Valproic Acid (Depakene) 2,500 mg BID PO ; Start 12/04/16 at 21:00; Stop at 21:00; Status DC Valproic Acid (Depakene) 2,500 mg BID PO Last administered on 12/07/16 19:52; Start 12/04/16 at 21:00; Stop 12/08/16 at 13:41; Status DC Buspirone HCl (Buspar) 15 mg BID PO Last administered on 12/10/16 20:14; Start 12/05/16 at 21:00; Stop 12/11/16 at 11:23; Status DC Divalproex Sodium (Depakote Sprinkles) 2,500 mg 1X ONCE PO ; Start 12/06/16 at 10:00; Stop 12/06/16 at 10:01; Status DC Haloperidol Lactate (Haldol) 5 mg DAILY IM Last administered on 12/17/16 09: 56; Start 12/06/16 at 12:30 Lorazepam (Ativan) 0.5 mg DAILY IM Last administered on 12/17/16 09:56; Start 12/06/16 at 12:30 Mirtazapine (Remeron) 15 mg QHS PO Last administered on 12/17/16 20:15; Start 12/07/16 at 21:00 Trazodone HCl (Desyrel) 100 mg PRN QHS PRN PO INSOMNIA, MAY REPEAT X1 Last administered on 12/16/16 21:01; Start 12/07/16 at 19:30 Trazodone HCl (Desyrel) 12.5 mg BID@0900,1200 PO Last administered on 13:16; Start 12/08/16 at 09:00; Stop 12/09/16 at 16:24; Status DC Trazodone HCl (Desyrel) 12.5 mg BID@1500,1800 PO ; Start 12/08/16 at 15:00; Stop 12/09/16 at 16:24; Status DC Divalproex Sodium (Depakote Sprinkles) 2,000 mg BID PO ; Start 12/08/16 at 09:00 ; Stop 12/08/16 at 14:40; Status DC Divalproex Sodium (Depakote Sprinkles) 2,000 mg BID PO Last administered on 13:52; Start 12/09/16 at 09:00; Stop 12/16/16 at 18:30; Status DC Trazodone HCl (Desyrel) 25 mg BID@1500,1800 PO Last administered on 12/11/16 17:35; Start 12/09/16 at 18:00; Stop 12/15/16 at 19:11; Status DC Trazodone HCl (Desyrel) 25 mg BID@0900,1200 PO Last administered on 12/10/16 13:39; Start 12/10/16 at 09:00; Stop 12/15/16 at 19:11; Status DC Buspirone HCl (Buspar) 15 mg BID@0900,1700 PO Last administered on 12/17/16 08:30; Start 12/11/16 at 17:00 Buspirone HCl (Buspar) 10 mg PRN DAILY@1200 PRN PO ANXIETY; Start 12/11/16 at 11:30 Dextrose 1,000 ml @ 75 mls/hr [id number] IV Last administered on 12/12/16 15:03 ; Start 12/11/16 at 17:15; Stop 12/12/16 at 16:17; Status DC Bisacodyl (Dulcolax Supp) 10 mg PRN DAILY PRN [place] CONSTIPATION Last administered on 12/11/16 20:56; Start 12/11/16 at 19:45; Stop 12/12/16 at 15 :03; Status DC Sodium Biphosphate/ Sodium Phosphate (Fleet Adult) 133 ml PRN DAILY PRN [place] CONSTIPATION Last administered on 12/12/16 06:05; Start 12/12/16 at 06:00 Potassium Chloride/Dextrose 1,000 ml @ 75 mls/hr [id number] IV Last administered on 12/15/16 01:05; Start 12/12/16 at 17:00; Stop 12/15/16 at 16:40; Status DC Olanzapine (ZyPREXA ZYDIS) 2.5 mg PRN Q2HR PRN PO PSYCHOSIS Last administered on 12/15/16 05:41; Start 12/13/16 at 19:00 Mirtazapine (Remeron Maribel-Tab) 15 mg QHS PO Last administered on 12/15/16 19: 23; Start 12/14/16 at 23:00; Stop 12/16/16 at 19:34; Status DC Magnesium Sulfate 50 ml @ 25 mls/hr 1X ONCE IV Last administered on 14:20; Start 12/15/16 at 12:45; Stop 12/15/16 at 14:44; Status DC [place] Carbonate 300 mg HS PO Last administered on 12/17/16 20:14; Start at 21:00 Active Scripts Active Reported Aspirin 81 Mg Tab.chew 81 Mg PO DAILY Abilify (Aripiprazole) 5 Mg Tablet 5 Mg PO DAILY Olanzapine 10 Mg Tablet 10 Mg PO DAILY Haloperidol 2 Mg Tablet 2 Mg PO PRN Q4HRS PRN Haloperidol 2 Mg Tablet 2 Mg PO TID Chlorpromazine Hcl 100 Mg Tablet 100 Mg PO TID Chlorpromazine Hcl 50 Mg Tablet 50 Mg PO TID Acetaminophen 650 Mg/20.3 Ml Solution 650 Mg PO Q6HRS PRN Buspirone Hcl 10 Mg Tablet 10 Mg PO BID Depakene (Valproate Sodium) 250 Mg/5 Ml Solution 2,500 Mg PO BID Tamsulosin Hcl 0.4 Mg Cap.er.24h 0.4 Mg PO HS Miralax (Polyethylene Glycol 3350) 17 Gm Powd.pack 17 Gm PO DAILY Levothyroxine Sodium 125 Mcg Tablet 125 Mcg PO DAILYAC Carbamazepine 200 Mg Tablet 200 Mg PO HS Bisacodyl 10 Mg Supp.rect 10 Mg RC PRN DAILY PRN Fluticasone Propionate Nasal [place] (Fluticasone Propionate) 16 Gm [place].susp 1 Spr NS DAILY Diagnosis: Problems: (1) Altered mental state (2) Dementia with behavioral disturbance (3) Intellectual delay (4) Anxiety disorder (5) Impulse control disorder (6) Dementia in Alzheimer's disease with delusions (7) Dementia in Alzheimer's disease with depression (8) Bipolar affective, mixed RAVINDRA CHANG MD Dec 17, 2016 20:51
[2016-12-17 22:32] VITALS: BP 143/73
[2016-12-17] MEDS ORDERED: CHLO100T6 PO (23:54)
[2016-12-17] MEDS ORDERED: [UNRECOGNIZED DRUG - CODE] PO (23:57)
[2016-12-17] MEDS ORDERED: ATOR20TA PO (23:58)
--- NOTE | 2016-12-18 | PN ---
DATE: 12/10/2016 PSYCHIATRIC PROGRESS NOTE This is a late entry for 12/16/2016, covers the elements not covered in my initial note of 12/16/2016. SUBJECTIVE: I met with the patient evening of 12/16/2016. The patient had a very difficult day once again. He has been loud, disruptive, yelling, screaming, has had to be placed in a separate hallway on account of this. Slept 9 hours. This is a marked change again from the day before and nursing staff feel that day before he was better because he was physically withdrawn and is not as stable as he is on 12/16/2016 and that is when his agitation re-surfaces. REVIEW OF SYSTEMS: Ambulation impaired, in a Broda chair. No CV, , pulmonary, eye, ENT system symptoms on review. MENTAL STATUS EXAM: Oriented to himself. Insight, judgment, recent and remote memory, attention, concentration, fund of knowledge poor, consistent with his diagnosis mentioned in my initial note. LABORATORY DATA: Reviewed. IMPRESSION: Unchanged from initial note. PLAN: I have carefully reviewed all of the patient's psychotropics, also discussed with the hospital pharmacist. We will stop the Depakote and Tegretol as these have been ineffective with mood stabilizers, start him on lithium carbonate 300 mg p.o. at bedtime. Check CBC, CMP, TSH, lithium level in 3 days. One-on-one status has been discontinued. I am aware of the possible drug interaction between lithium, Haldol, lithium and chlorpromazine. We will monitor for this closely with close recognition of extrapyramidal symptoms. I do feel patient is rather complicated, has had a very poor response to psychotropics and I feel lithium hopefully should have a significant mood stabilization effects to help with the agitation and mood lability, which has been prominent despite multiple psychotropics. IMPRESSION: Unchanged from initial note. PLAN: As noted above. Reviewed drug interactions, risk/benefit ratio favors no further change. MAN Dominique CHANG MD DR: EDUARDA/camelia JOB#: [id number] / [id number]
[2016-12-18] MEDS ORDERED: LORA2VIA4 IJ (00:01)
[2016-12-18] MEDS ORDERED: MIRT15TA3 PO (00:02)
[2016-12-18] MEDS ORDERED: HALO5AMP2 IJ (00:05)
[2016-12-18] MEDS ORDERED: BUSP10TA PO (00:06)
[2016-12-18] MEDS ORDERED: LITH300T3 PO (00:18)
[2016-12-18 00:19] VITALS: BP 135/83
[2016-12-18] MEDS ORDERED: TRAZ-90 PO (00:21)
[2016-12-18] MEDS ORDERED: OLAN5TAB5 PO (00:23)
[2016-12-18] MEDS ORDERED: diphenhydrAMINE 50 MG/ML VIAL IVP ONE (00:45)
[2016-12-18] MEDS: LEVOTHYROXINE 125 MCG TABLET PO SCH (06:00)
[2016-12-18 06:14] LABS: BASO # 0.1 x10^3/uL (0.0-0.2); BASO % 1 % (0-3); EOS % 0 % (0-3); HEMATOCRIT 35.6 % (39.0-53.0); HEMOGLOBIN 11.7 g/dL (13.0-17.5); LYMPH # 0.2 x10^3/uL (1.0-4.8); LYMPH % 2 % (24-48); MEAN CORPUSCULAR HEMOGLOBIN 29 pg (25-35); MEAN CORPUSCULAR HGB CONC 33 g/dL (31-37); MEAN CORPUSCULAR VOLUME 89 fL (79-100); MONO % 9 % (0-9); NEUT % 89 % (31-73); PLATELET COUNT 253 x10^3/uL (140-400); RED BLOOD COUNT 4.02 x10^6/uL (4.30-5.70); RED CELL DISTRIBUTION WIDTH 18.1 % (11.5-14.5); WHITE BLOOD COUNT 11.3 x10^3/uL (4.0-11.0)
[2016-12-18 06:26] LABS: ALBUMIN 2.6 g/dL (3.4-5.0); ALBUMIN/GLOBULIN RATIO 0.6 (1.0-1.7); CALCIUM 9.3 mg/dL (8.5-10.1); GFR 73.5; MAGNESIUM 1.5 mg/dL (1.8-2.4); POTASSIUM 3.9 mmol/L (3.5-5.1); TOTAL BILIRUBIN 0.4 mg/dL (0.2-1.0); TOTAL PROTEIN 7.1 g/dL (6.4-8.2)
[2016-12-18 06:33] VITALS: BP 124/82
[2016-12-18] MEDS ORDERED: LORazepam INTENSOL 2 MG/ML BOTTLE SL PRN (08:30)
[2016-12-18] MEDS ORDERED: MORPHINE SULFATE 20 MG/ML CONC SOLUTION. SL PRN (08:30)
[2016-12-18] MEDS: CHOLECALCIFEROL (VITAMIN D3) 50,000 UNIT CAPSULE PO SCH (09:00)
[2016-12-18] MEDS: FLUTICASONE 50MCG/NASAL SPRAY 16GM BOTTLE. NS SCH (09:00)
[2016-12-18] MEDS ORDERED: chlorproMAZINE HCL 25 MG TABLET PO SCH (09:00)
[2016-12-18] MEDS ORDERED: SCOPOLAMINE 1.5MG PATCH. TD SCH (09:00)
[2016-12-18] MEDS ORDERED: ACET650S19 PO (09:39)
--- NOTE | 2016-12-18 16:11 | RAD ---
Single Views of the Chest 12/18/2016 10:22 AM Indication: HYPOXIA Comparison: Chest radiograph December 08, 2016 Findings: Marked elevation of the right hemidiaphragm is again seen. No pneumothorax or pleural effusion is identified. Cardiomediastinal silhouette is grossly stable. No evidence of cardiomegaly is seen. Bony thorax is grossly unchanged. Impression: No evidence of acute cardiopulmonary process or change from prior study. Elevation of the right hemidiaphragm persists.
--- NOTE | 2016-12-18 18:29 | PDOC ---
Exam Raghav Demential Exam: Arghav Note: Please also refer to the separate dictated note~for this date of service dictated separately.~Patient seen individually. Discussed the patient with Nursing staff reviewed the chart.~Reviewed interim history and current functioning. Reviewed vital signs,~Labs/ Radiology~and current medications noted below. Continue current treatment with the changes noted in the dictated addendum note Assessment: Vital Signs: Vital Signs Date Time Temp Pulse Resp B/P (MAP) Pulse Ox O2 Delivery O2 Flow Rate FiO2 12/18/16 06:33 97.6 138 28 124/82 (96) 90 12/18/16 01:18 Room Air I&O Intake and Output 12/19/16 07:00 Intake Total 0 ml Balance 0 ml Intake Oral 0 ml # Voids 1 Labs: Laboratory Tests Test 12/18/16 05:52 White Blood Count 11.3 x10^3/uL (4.0-11.0) H Red Blood Count 4.02 x10^6/uL (4.30-5.70) L Hemoglobin 11.7 g/dL (13.0-17.5) L Hematocrit 35.6 % (39.0-53.0) L Mean Corpuscular Volume 89 fL (79-100) Mean Corpuscular Hemoglobin 29 pg (25-35) Mean Corpuscular Hemoglobin Concent 33 g/dL (31-37) Red Cell Distribution Width 18.1 % (11.5-14.5) H Platelet Count 253 x10^3/uL (140-400) Neutrophils (%) (Auto) 89 % (31-73) H Lymphocytes (%) (Auto) 2 % (24-48) L Monocytes (%) (Auto) 9 % (0-9) Eosinophils (%) (Auto) 0 % (0-3) Basophils (%) (Auto) 1 % (0-3) Neutrophils # (Auto) 10.0 x10^3uL (1.8-7.7) H Lymphocytes # (Auto) 0.2 x10^3/uL (1.0-4.8) L Monocytes # (Auto) 1.0 x10^3/uL (0.0-1.1) Eosinophils # (Auto) 0.0 x10^3/uL (0.0-0.7) Basophils # (Auto) 0.1 x10^3/uL (0.0-0.2) Sodium Level 140 mmol/L (136-145) Potassium Level 3.9 mmol/L (3.5-5.1) Chloride Level 102 mmol/L (98-107) Carbon Dioxide Level 26 mmol/L (21-32) Anion Gap 12 (6-14) Blood Urea Nitrogen 10 mg/dL (8-26) Creatinine 1.0 mg/dL (0.7-1.3) Estimated GFR (Cockcroft-Gault) 73.5 BUN/Creatinine Ratio 10 (6-20) Glucose Level 76 mg/dL (70-99) Calcium Level 9.3 mg/dL (8.5-10.1) Magnesium Level 1.5 mg/dL (1.8-2.4) L Total Bilirubin 0.4 mg/dL (0.2-1.0) Aspartate Amino Transferase (AST) 16 U/L (15-37) Alanine Aminotransferase (ALT) 12 U/L (16-63) L Alkaline Phosphatase 45 U/L (46-116) L Total Protein 7.1 g/dL (6.4-8.2) Albumin 2.6 g/dL (3.4-5.0) L Albumin/Globulin Ratio 0.6 (1.0-1.7) L Current Medications: Meds: Current Medications Acetaminophen (Tylenol) 650 mg PRN Q6HRS PRN PO PAIN / TEMP; Start 12/03/16 at 00:45; Stop 12/18/16 at 13:24; Status DC Multi-Ingredient Ointment (Analgesic [place]) 1 ailyn PRN QID PRN TP MUSCLE PAIN; Start 12/03/16 at 00:45; Stop 12/18/16 at 13:24; Status DC Al Hydroxide/Mg Hydroxide (Mylanta Plus Xs) 15 ml PRN AFTMEALHC PRN PO DYSPEPSIA; Start 12/03/16 at 00:45; Stop 12/18/16 at 13:24; Status DC Magnesium Hydroxide (Milk Of Magnesia) 2,400 mg PRN QHS PRN PO CONSTIPATION; Start 12/03/16 at 00:45; Stop 12/18/16 at 13:24; Status DC Buspirone HCl (Buspar) 10 mg BID PO Last administered on 12/05/16t 08:23; Start 12/03/16 at 09:00; Stop 12/05/16 at 18:53; Status DC Carbamazepine (TEGretol) 200 mg HS PO Last administered on 12/03/16 19:45; Start 12/03/16 at 21:00; Stop 12/04/16 at 06:05; Status DC Haloperidol (Haldol) 2 mg PRN Q4HRS PRN PO AGITATION Last administered on 16:46; Start 12/03/16 at 01:15; Stop 12/18/16 at 01:27; Status DC Haloperidol (Haldol) 2 mg TID PO Last administered on 12/05/16 19:20; Start 12/03/16 at 09:00; Stop 12/18/16 at 01:27; Status DC Olanzapine (ZyPREXA) 10 mg DAILY PO Last administered on 12/12/16 12:01; Start 12/03/16 at 09:00; Stop 12/12/16 at 18:33; Status DC Chlorpromazine HCl (Thorazine) 150 mg TID PO Last administered on 12/17/16 20 :15; Start 12/03/16 at 09:00; Stop 12/18/16 at 01:27; Status DC Non-Formulary Medication 100 mg TID PO ; Start 12/03/16 at 09:00; Status UNV Valproic Acid (Depakene) 250 mg BID PO Last administered on 12/04/16 09:22; Start 12/03/16 at 09:00; Stop 12/04/16 at 11:16; Status DC Influenza Virus Vaccine Quadrival (Fluarix Quad [id number] Syringe) 0.5 ml ONCE ONCE VAX IM Last administered on 12/03/16 09:06; Start 12/03/16 at 09:00; Stop 12/03/16 at 09:02; Status DC Acetaminophen (Tylenol) 650 mg PRN Q6HRS PRN PO PAIN / TEMP; Start 12/03/16 at 07:00; Stop 12/18/16 at 13:24; Status DC Bisacodyl (Dulcolax Supp) 10 mg PRN DAILY PRN [place] CONSTIPATION; Start 12/03/16 at 07:00; Stop 12/18/16 at 13:24; Status DC Fluticasone Propionate (Flonase) 1 spray DAILY NS Last administered on 13:21; Start 12/03/16 at 09:00; Stop 12/18/16 at 13:24; Status DC Levothyroxine Sodium (Synthroid) 125 mcg DAILY06 PO Last administered on 05:46; Start 12/03/16 at 07:30; Stop 12/18/16 at 13:24; Status DC Polyethylene Glycol (miraLAX) 17 gm DAILY PO Last administered on 12/09/16 07 :43; Start 12/03/16 at 09:00; Stop 12/11/16 at 19:44; Status DC Tamsulosin HCl (Flomax) 0.4 mg HS PO Last administered on 12/17/16 20:15; Start 12/03/16 at 21:00; Stop 12/18/16 at 13:24; Status DC Trazodone HCl (Desyrel) 50 mg PRN QHS PRN PO INSOMNIA; Start 12/03/16 at 21:00 ; Stop 12/07/16 at 19:26; Status DC Mirtazapine (Remeron) 7.5 mg QHS PO Last administered on 12/05/16 19:20; Start 12/03/16 at 21:00; Stop 12/07/16 at 19:26; Status DC Carbamazepine (TEGretol) 200 mg BID76 PO Last administered on 12/16/16 06:16 ; Start 12/04/16 at 07:00; Stop 12/16/16 at 18:30; Status DC Vitamin D (Vitamin D3) 50,000 unit WEEKLY PO Last administered on 12/04/16 09: 23; Start 12/04/16 at 09:00; Stop 12/18/16 at 13:24; Status DC Atorvastatin Calcium (Lipitor) 20 mg QHS PO Last administered on 12/17/16 20: 14; Start 12/04/16 at 21:00; Stop 12/18/16 at 13:24; Status DC Valproic Acid (Depakene) 2,500 mg BID PO ; Start 12/04/16 at 21:00; Stop at 21:00; Status DC Valproic Acid (Depakene) 2,500 mg BID PO Last administered on 12/07/16 19:52; Start 12/04/16 at 21:00; Stop 12/08/16 at 13:41; Status DC Buspirone HCl (Buspar) 15 mg BID PO Last administered on 12/10/16 20:14; Start 12/05/16 at 21:00; Stop 12/11/16 at 11:23; Status DC Divalproex Sodium (Depakote Sprinkles) 2,500 mg 1X ONCE PO ; Start 12/06/16 at 10:00; Stop 12/06/16 at 10:01; Status DC Haloperidol Lactate (Haldol) 5 mg DAILY IM Last administered on 12/17/16 09: 56; Start 12/06/16 at 12:30; Stop 12/18/16 at 01:27; Status DC Lorazepam (Ativan) 0.5 mg DAILY IM Last administered on 12/17/16 09:56; Start 12/06/16 at 12:30; Stop 12/18/16 at 01:27; Status DC Mirtazapine (Remeron) 15 mg QHS PO Last administered on 12/17/16 20:15; Start 12/07/16 at 21:00; Stop 12/18/16 at 08:27; Status DC Trazodone HCl (Desyrel) 100 mg PRN QHS PRN PO INSOMNIA, MAY REPEAT X1 Last administered on 12/16/16 21:01; Start 12/07/16 at 19:30; Stop 12/18/16 at 08: 27; Status DC Trazodone HCl (Desyrel) 12.5 mg BID@0900,1200 PO Last administered on 13:16; Start 12/08/16 at 09:00; Stop 12/09/16 at 16:24; Status DC Trazodone HCl (Desyrel) 12.5 mg BID@1500,1800 PO ; Start 12/08/16 at 15:00; Stop 12/09/16 at 16:24; Status DC Divalproex Sodium (Depakote Sprinkles) 2,000 mg BID PO ; Start 12/08/16 at 09:00 ; Stop 12/08/16 at 14:40; Status DC Divalproex Sodium (Depakote Sprinkles) 2,000 mg BID PO Last administered on 13:52; Start 12/09/16 at 09:00; Stop 12/16/16 at 18:30; Status DC Trazodone HCl (Desyrel) 25 mg BID@1500,1800 PO Last administered on 12/11/16 17:35; Start 12/09/16 at 18:00; Stop 12/15/16 at 19:11; Status DC Trazodone HCl (Desyrel) 25 mg BID@0900,1200 PO Last administered on 12/10/16 13:39; Start 12/10/16 at 09:00; Stop 12/15/16 at 19:11; Status DC Buspirone HCl (Buspar) 15 mg BID@0900,1700 PO Last administered on 12/17/16 08:30; Start 12/11/16 at 17:00; Stop 12/18/16 at 01:27; Status DC Buspirone HCl (Buspar) 10 mg PRN DAILY@1200 PRN PO ANXIETY; Start 12/11/16 at 11:30; Stop 12/18/16 at 01:27; Status DC Dextrose 1,000 ml @ 75 mls/hr [id number] IV Last administered on 12/12/16 15:03 ; Start 12/11/16 at 17:15; Stop 12/12/16 at 16:17; Status DC Bisacodyl (Dulcolax Supp) 10 mg PRN DAILY PRN [place] CONSTIPATION Last administered on 12/11/16 20:56; Start 12/11/16 at 19:45; Stop 12/12/16 at 15 :03; Status DC Sodium Biphosphate/ Sodium Phosphate (Fleet Adult) 133 ml PRN DAILY PRN [place] CONSTIPATION Last administered on 12/12/16 06:05; Start 12/12/16 at 06:00; Stop 12/18/16 at 13:24; Status DC Potassium Chloride/Dextrose 1,000 ml @ 75 mls/hr [id number] IV Last administered on 12/15/16 01:05; Start 12/12/16 at 17:00; Stop 12/15/16 at 16:40; Status DC Olanzapine (ZyPREXA ZYDIS) 2.5 mg PRN Q2HR PRN PO PSYCHOSIS Last administered on 12/17/16 22:44; Start 12/13/16 at 19:00; Stop 12/18/16 at 13:24; Status DC Mirtazapine (Remeron Maribel-Tab) 15 mg QHS PO Last administered on 12/15/16 19: 23; Start 12/14/16 at 23:00; Stop 12/16/16 at 19:34; Status DC Magnesium Sulfate 50 ml @ 25 mls/hr 1X ONCE IV Last administered on 14:20; Start 12/15/16 at 12:45; Stop 12/15/16 at 14:44; Status DC [place] Carbonate 300 mg HS PO Last administered on 12/17/16 20:14; Start at 21:00; Stop 12/18/16 at 08:27; Status DC Diphenhydramine HCl (Benadryl) 50 mg 1X ONCE IVP Last administered on 00:46; Start 12/18/16 at 00:45; Stop 12/18/16 at 00:46; Status DC Chlorpromazine HCl (Thorazine) 100 mg TID PO ; Start 12/18/16 at 09:00; Stop 12/18/16 at 09:00; Status DC Lorazepam (Ativan Intensol) 1 mg PRN Q6HRS PRN [place] ANXIETY / AGITATION Last administered on 12/18/16 10:07; Start 12/18/16 at 08:30; Stop 12/18/16 at 13 :24; Status DC Scopolamine (Transderm-Scop) 1 patch Q3DAYS TD Last administered on 12/18/16 10:01; Start 12/18/16 at 09:00; Stop 12/18/16 at 13:24; Status DC Morphine Sulfate (Roxanol Conc) 4 mg PRN Q3HRS PRN [place] PAIN; Start 12/18/16 at 08:30; Stop 12/18/16 at 13:24; Status DC Active Scripts Active Reported Acetaminophen 650 Mg/20.3 Ml Solution 650 Mg PO Q6HRS PRN MDD 4000mg/24 hrs Zyprexa Zydis (Olanzapine) 5 Mg Tab.rapdis 2.5 Mg PO PRN Q2HR PRN dissolve in mouth. Max 15mg/24hrs Lipitor (Atorvastatin Calcium) 20 Mg Tablet 20 Mg PO QHS Maximum D3 (Cholecalciferol (Vitamin D3)) 10,000 Unit Capsule 50,000 Unit PO WEEKLY Acetaminophen 650 Mg/20.3 Ml Solution 650 Mg PO Q6HRS PRN Buspirone Hcl 10 Mg Tablet 10 Mg PO PRN DAILY@ 1200 PRN Tamsulosin Hcl 0.4 Mg Cap.er.24h 0.4 Mg PO HS Levothyroxine Sodium 125 Mcg Tablet 125 Mcg PO DAILYAC Bisacodyl 10 Mg Supp.rect 10 Mg RC PRN DAILY PRN Fluticasone Propionate Nasal [place] (Fluticasone Propionate) 16 Gm [place].susp 1 Spr NS DAILY Diagnosis: Problems: (1) Bipolar affective, mixed (2) Dementia in Alzheimer's disease with depression (3) Dementia in Alzheimer's disease with delusions (4) Impulse control disorder (5) Anxiety disorder (6) Dementia with behavioral disturbance (7) Intellectual delay RAVINDRA CHANG MD Dec 18, 2016 18:29
--- NOTE | 2016-12-19 04:56 | PN ---
DATE: 12/17/2016 PSYCHIATRIC PROGRESS NOTE This late entry 12/17/2016 covers elements not covered in my initial note of 12/17/2016. SUBJECTIVE: I met with the patient in the evening of 12/17/2016. He has been yelling all day, refusing oral food and fluid intakes. I was also called late at night because of his gurgling and increased agitation. REVIEW OF SYSTEMS: Ambulation impaired, in a Broda chair. No CV, , pulmonary, eye, ENT system symptoms on review. Reliability poor. MENTAL STATUS EXAM: Oriented to himself. Insight, judgment, recent and remote memory, attention, concentration, fund of knowledge poor, consistent with his diagnosis mentioned in my initial note. PLAN: Continue current psychotropics. Review drug interactions, risk/benefit ratio favors no further change. Oral food and fluid intake remains poor. We may have to stop all his psychotropics. He does seem fairly medically compromised. I will defer to Dr. Pacheco about possible hospice care and transition to group home. Discussed at length with staff. MAN Dominique CHANG MD DR: EDUARDA/camelia JOB#: [id number] / [id number]
--- NOTE | 2016-12-19 19:26 | DS ---
DATE OF DISCHARGE: 12/18/2016 DISCHARGE SUMMARY AND PSYCHIATRIC PROGRESS NOTE REASON FOR ADMISSION: Please refer to the admission history for details. Briefly, the patient is a 71-year-old male, referred from [place], [place] by his primary care physician on account of worsening symptoms of bipolar disorder within the context of his significant dementia with delusion, behavioral disturbance. The patient was yelling out, flipping people off, grabbing people, threw up bottle at others, increased anxiety, agitation and aggression. He had failed outpatient psychiatric interventions. Behaviors were deemed dangerous at the shelter, referred for inpatient psychiatric stabilization. SIGNIFICANT FINDINGS AND CLINICAL COURSE: Following admission, the patient was seen daily individually by myself, followed medically per Dr. Pacheco/Dr. Velazquez. The patient had an extremely complicated course during this hospitalization. Initially, he was agitated, aggressive, yelling, throwing his tray off the table, disruptive, almost totally unmanageable. Adjustments were made in his psychotropics multiple times in an attempt to control his marked psychosis, mood lability, but at a point where we were able to control his psychosis and aggression, he was then overly sedated, drooling, unable to eat and drink. Swallowing was impaired as well. All psychotropics were discontinued including the scheduled IM Haldol, Ativan, which had been initiated on account of his marked noncompliance with oral medications. He was given IV fluids, seemed to stabilize somewhat, psychotropics restarted. It is pertinent that the psychotropics he was taking prior to admission were significant combinations of mood stabilizers and antipsychotics at fairly large dosages. Nevertheless, once again, the patient became overtly sedated, refusing to eat and drink. Dr. Pacheco, who followed the patient from a medical standpoint, felt that the family needed to consider hospice care as they were not willing to have a feeding tube for him. All psychotropics were once again discontinued including the lithium, which had been initiated as a mood stabilizer as a last resort. At this stage, he was transferred back to the shelter on hospice care. All psychotropics other than Zyprexa p.r.n. were discontinued due to his general medical condition. CONDITION AT DISCHARGE: from a psychiatric standpoint, the yelling out agitation was better, but this was probably as a result not of the psychotropics he was using, but rather his physical ill-health. No active suicidal or homicidal ideation at discharge. REVIEW OF SYSTEMS: Ambulation impaired. No CV, , pulmonary system symptoms on review. Reliability poor. MENTAL STATUS EXAM: Insight, judgment, recent and remote memory, attention, concentration, fund of knowledge poor, consistent with his diagnosis. FINAL DIAGNOSES: Major neurocognitive disorder, Alzheimer, vascular with depression, delusion, behavioral disturbance; bipolar 1 disorder, mixed with psychotic features; anxiety disorder, unspecified; impulse control disorder, unspecified. Multiple medical comorbidities noted per Dr. Pacheco. DISCHARGE MEDICATIONS: Please refer to the [facility]. Outpatient psychiatric and medical followup at the shelter on hospice care. Time for discharge day management is greater than 30 minutes. MAN Dominique CHANG MD DR: EDUARDA/camelia JOB#: [id number] / [id number]
== END 2016-12-18 13:00 | disposition home or self-care (01) | DRG 884 ==
LOC: ER 20:06 → GEROPSY 12-03 00:21
PROVIDERS: ADMIT Psychiatry & Neurology Psychiatry; ATTEND Psychiatry & Neurology Psychiatry
DX: F01.51 Vascular dementia, unspecified severity, with behavioral disturbance (principal); F02.81 Dementia in other diseases classified elsewhere, unspecified severity, with behavioral disturbance; G30.9 Alzheimer's disease, unspecified; J44.9 Chronic obstructive pulmonary disease, unspecified; F31.64 Bipolar disorder, current episode mixed, severe, with psychotic features; E86.0 Dehydration; E03.9 Hypothyroidism, unspecified; E55.9 Vitamin D deficiency, unspecified; E78.5 Hyperlipidemia, unspecified; E87.6 Hypokalemia; F41.9 Anxiety disorder, unspecified; F63.9 Impulse disorder, unspecified; F79 Unspecified intellectual disabilities; K21.9 Gastro-esophageal reflux disease without esophagitis; N40.0 Benign prostatic hyperplasia without lower urinary tract symptoms; Z51.5 Encounter for palliative care; Z66 Do not resuscitate; Z91.14 Patient's other noncompliance with medication regimen; G47.00 Insomnia, unspecified; Z86.2 Personal history of diseases of the blood and blood-forming organs and certain disorders involving the immune mechanism; E78.00 Pure hypercholesterolemia, unspecified
CPT/HCPCS: 36415; 71010; 80048; 80053; 80061; 80156; 80164; 81001; 82306; 82607; 83036; 83540; 83550; 83735; 84436; 84443; 84480; 85007; 85025; 85027; 86592; 86593; 90686; 92526; 93005; J1200; J1630; J2060; J3475; J7042; Q0161; 92610; 99285-25